=== PATIENT | male | born 1945 | race Caucasian/White ===

== ENCOUNTER 2019-11-13 07:16 | Outpatient (CLI) | payer OTHER, MEDICARE, SELFPAY ==
--- NOTE | 2019-11-13 | ECG_ITS ---
Measurements Intervals [place] Rate: 70 P: 20 MS: 172 QRS: 17 QRSD: 102 T: 52 QT: 387 QTc: 420 Interpretive Statements SINUS RHYTHM EARLY PRECORDIAL R/S TRANSITION BASELINE ARTIFACT- I, III, AVR, AVL, AVF BORDERLINE ECG Electronically Signed On 11-13-2019 8:38:59 BOOM TENDER by Rosalino Velasquez D.O.
--- NOTE | ~2019-11-13 | XR_ITS ---
XR chest 2V DATE: 11/13/2019 07:46 INDICATION: Shortness of breath. Preoperative clearance. TECHNIQUE: PA and lateral views COMPARISON: 08/25/2018 CT chest 05/21/2017 two-view chest FINDINGS: Normal heart size. There is aortic ectasia. There is chronic discoid scarring in the right mid and lower lung zone, chronic blunting of the right costophrenic angle and right pleural thickening, chronic elevation of the right leaf of the diaphrag m, all present on 05/21/2017. There is chronic bibasilar atelectasis and/or scarring, also stable sinc e 05/21/2017. No apparent interval pulmonary infiltrate or consolidation, pleural effusion or pulmonary vascular co ngestion or pneumothorax. IMPRESSION: No significant change since 05/21/2017 Reviewed, dictated and finalized at location B. FIRE SPECIALIST
== END 2019-11-13 07:17 | disposition home or self-care (01) ==
PROVIDERS: PCP Family Medicine; Visit Provider Family Medicine
DX: Z01.810 Encounter for preprocedural cardiovascular examination (principal); R06.02 Shortness of breath; R94.31 Abnormal electrocardiogram [ECG] [EKG]
CPT/HCPCS: 71046; 93005

== ENCOUNTER 2019-11-20 07:50 | Outpatient (CLI) | payer OTHER, MEDICARE, SELFPAY ==
--- NOTE | ~2019-11-20 | US_ITS ---
EXAMINATION: US arterial ankle brachial ind EXAM DATE: 11/20/2019 08:36 INDICATION: Left calf, left leg pain. Hypertension. TECHNIQUE: Segmental pressures and plethysmographic and Doppler waveforms of the brachial and lower e xtremity arteries were obtained. There is no prior study for comparison. FINDINGS: Right and left brachial artery pressures of 141 mm Hg and 141 mm Hg, respectively, are concordant (no rmal difference <= 30 mmHg). RIGHT LEG: The ankle-brachial index (BRAEDEN) is 1.43 (normal >= 0.9-1). The great toe-brachial index (TBI) is 0.96 (normal >= 0.65). The lower extremity ratios, segmental pressure gradients as follows; Dorsalis pedis: 1.43 (202 mmHg). Posterior tibial: Could not obtain ( mmHg). (Normal gradients <= 20-30 mmHg between adjacent levels on the same leg or the same levels on the two legs). Arterial waveforms are biphasic. LEFT LEG: The ankle-brachial index (BRAEDEN) is 1.01 (normal >= 0.9-1). The great toe-brachial index (TBI) is 0.27 (normal >= 0.65). The lower extremity ratios, segmental pressure gradients as follows; Dorsalis pedis: 0.74 (105 mmHg). Posterior tibial: 1.01 (142 mmHg). (Normal gradients <= 20-30 mmHg between adjacent levels on the same leg or the same levels on the two legs). Arterial waveforms are monophasic, diminished. IMPRESSION: 1. Right ankle-brachial index 1.43, normal. 2. Left ankle-brachial index 1.01, normal. 3. Segmental pressures as above, with diminished monophasic LEFT PT, DP Doppler waveforms and decrea sed toe brachial index. Reviewed, dictated and finalized at location B. TURNER IMPRESSION: 1. Right ankle-brachial index 1.43, normal. 2. Left ankle-brachial index 1.01, normal. 3. Segmental pressures as above, with diminished monophasic LEFT PT, DP Dopple r waveforms and decreased toe brachial index.
== END 2019-11-20 07:51 | disposition home or self-care (01) ==
PROVIDERS: PCP Family Medicine; Visit Provider Nurse Practitioner Family
DX: I70.212 Atherosclerosis of native arteries of extremities with intermittent claudication, left leg (principal)
CPT/HCPCS: 93922

== ENCOUNTER 2020-04-07 08:33 | Outpatient (CLI) | payer OTHER, MEDICARE, SELFPAY ==
--- NOTE | 2020-04-07 | ECHO_ITS ---
Patient Info Name: Jake Martin Age: 74 years : 1945 Gender: Male Ht: 69 in Wt: 310 lbs BSA: 2.69 m2 HR: 66 bpm BP: 130 / 76 mmHg Technical Quality: Fair Exam Date: 04/07/2020 8:59 AM Exam Location: [facility] Patient Status: Outpatient Admit Date: 04/07/2020 Staff Ordering Physician: Selvin Sen MD Bar Tender: Kerry Álvarez RDCS Attending Provider: Selvin Sen MD Referring Physician: Francy CAICEDO; Exam Type: CA echo doppler color flow Study Info Indications - copd hypertensive hrt disease Complete two-dimensional, color flow and Doppler transthoracic echocardiogram is performed. Summary 1. Normal left ventricular size with borderline concentric hypertrophy. Good systolic function of all segments with no segmental wall motion abnormalities. Visually estimated ejection fraction is 55-60%. Grade 2 diastolic dysfunction is present. 2. No significant valve disease. 3. Normal pulmonary pressure. 4. Normal sinus rhythm. Left Ventricle Left ventricular chamber dimension is normal. Left ventricular systolic function is normal, estimated at 55-60%. There is mildly increased left ventricular wall thickness. Left ventricular septal wall motion is normal. The left ventricular diastolic function is grade II diastolic dysfunction. Right Ventricle Right ventricular chamber dimension is normal. Right ventricular systolic function is normal. Left Atria Left atrial chamber dimension is normal. Right Atria Right atrial chamber dimension is normal. Aortic Valve The aortic valve is trileaflet. There is mild aortic valve sclerosis. There is no aortic valve stenosis. There is no aortic valve regurgitation. Pulmonic Valve The pulmonic valve is normal. There is no pulmonic valve stenosis. There is no pulmonic regurgitation. Mitral Valve The mitral valve has normal leaflets. There is no mitral valve stenosis. There is trace mitral valve regurgitation. Tricuspid Valve The tricuspid valve leaflets are normal. There is no significant tricuspid valve stenosis. There is trace tricuspid valve regurgitation. No pulmonary hypertension, estimated pulmonary arterial systolic pressure is 27 mmHg. Pericardium/Pleural The pericardium appears normal. There is no pericardial effusion. Inferior Vena Cava Not well visualized inferior vena cava with >50% collapse upon inspiration consistent with Empty right atrial pressure, 10 mmHg. Aorta The aortic root size at the sinus of Valsalva is normal. The prox ascending aorta size is normal. Left Ventricular Outflow Tract Name Value Normal LVOT 2D LVOT Diameter 2.1 cm LVOT Doppler LVOT Peak Gradient 4 mmHg LVOT Mean Gradient 2 mmHg LVOT VTI 21 cm LVOT VTI/AV VTI Ratio 0.8 LVOT Stroke Volume 77 ml LVOT CO 15.0 l/min LVOT CI 5.6 l/min/m2 Pulmonic Valve
--- NOTE | 2020-04-07 | EST_ITS ---
Patient Info Name: Jake Martin Age: 74 years : 1945 Gender: Male Ht: 69 in Wt: 310 lbs BSA: 2.69 m2 Exam Date: 04/07/2020 11:00 AM Exam Location: [facility] Stress Patient Status: Outpatient Admit Date: 04/07/2020 Staff Ordering Physician: Selvin Sen MD Attending Provider: Selvin Sen MD Exercise Technologist: Obie Sanchez, RDCS, RT Nurse: Gerda Velarde, ANP, ACNP-BC Exam Type: CA stress jeffy w NM Study Info A regadenoson stress test was performed. Summary 1. No abnormal ST-T wave changes with lexiscan. 2. Nuclear test results to follow. Protocol: Lexiscan Stress ECG Details Stage: REST Duration (min): 1 min : 14 sec HR (bpm): 67 SBP (mmHg): 125 DBP (mmHg): 65 Stage: REST Duration (min): 41 min : 32 sec HR (bpm): 69 SBP (mmHg): 125 DBP (mmHg): 65 Stage: STAGE 1 Duration (min): 1 min : 0 sec HR (bpm): 74 SBP (mmHg): 122 DBP (mmHg): 89 Stage: RECOVERY Duration (min): 1 min : 0 sec HR (bpm): 79 SBP (mmHg): 122 DBP (mmHg): 89 Stage: RECOVERY Duration (min): 2 min : 0 sec HR (bpm): 78 SBP (mmHg): 122 DBP (mmHg): 89 Stage: RECOVERY Duration (min): 3 min : 0 sec HR (bpm): 82 SBP (mmHg): 120 DBP (mmHg): 79 Stage: RECOVERY Duration (min): 4 min : 0 sec HR (bpm): 80 SBP (mmHg): 120 DBP (mmHg): 79 Stage: RECOVERY Duration (min): 5 min : 0 sec HR (bpm): 78 SBP (mmHg): 119 DBP (mmHg): 76 Stage: RECOVERY Duration (min): 5 min : 12 sec HR (bpm): 78 SBP (mmHg): 119 DBP (mmHg): 76 Rest HR: 69 bpm Peak HR: 84 bpm Rest Sys BP: 125 mmHg Peak Sys BP: 122 mmHg Max Pred HR: 148 bpm % Max Pred HR: 57 % Target HR: 126 bpm Max RPP: 10,248 bpm*mmHg BP Response: Normal blood pressure response Termination Reason: Completed protocol Cardiac Symptoms: Shortness of breath, Lightheaded/pre-syncope Total Time: 1 min : 0 sec Rest Galvez BP: 65 mmHg Peak Galvez BP: 89 mmHg Total Dose: 0.4 mg Resting ECG Normal sinus rhythm - normal ECG. Stress ECG No abnormal ST/T wave changes with exercise. Arrhythmias None. Report Signatures
--- NOTE | ~2020-04-07 | NM_ITS ---
EXAMINATION: NM jeffy stress w perfusion DATE: 04/07/2020 13:19 INDICATION: Epigastric has of heart disease TECHNIQUE: Rest images were obtained following intravenous administration of 9.4 mCi Tc99m tetrofosmi n (Myoview). The patient was infused intravenously with Lexiscan (Regadenoson). Then, 29.4 mCi Tc99m tetrofosmin (Myoview) was administered intravenously, and stress images were obtained. Data was recon structed into short axis and horizontal and vertical long axis SPECT images. Gated SPECT images were also obtained. COMPARISON: None. FINDINGS: There is no definite reversible or fixed perfusion abnormality to suggest ischemia or infar ction. There is normal left ventricular chamber size, wall motion and ejection fraction. Left ventric ular ejection fraction measures 64%. IMPRESSION: 1. Normal myocardial perfusion at rest and during stress. 2. Left ventricular ejection fraction measuring 64%. Reviewed, dictated and finalized at location A.
--- NOTE | ~2020-04-07 | XR_ITS ---
XR chest 2V 04/07/2020 09:57 Indication: Shortness of breath. Procedure: PA and lateral views of the chest Comparison: Comparison to multiple prior studies sequentially, with oldest reviewed study dated 07/26. Findings: There is chronic scarring of the right mid and lower lung. Chronic right pleural effusion/p leural thickening without change. Stable cardiomediastinal silhouette. No acute focal pneumonia, valentin a or effusion. Calcified granulomas in the right lung. No acute osseous abnormality. No pneumothorax. Impression: 1: No acute cardiopulmonary disease. Stable scarring right mid and lower lung. Reviewed, dictated and finalized at location B. Impression: 1: No acute cardiopulmonary disease. Stable scarring right mid and lower lung.
== END 2020-04-07 08:34 | disposition home or self-care (01) ==
PROVIDERS: PCP Family Medicine; Visit Provider Family Medicine
DX: R06.02 Shortness of breath (principal); I10 Essential (primary) hypertension; J44.9 Chronic obstructive pulmonary disease, unspecified
CPT/HCPCS: 71046; 78452; 93017; 93306; A9502; J2785

== ENCOUNTER 2020-04-08 13:06 | Outpatient (CLI) | payer OTHER, MEDICARE, SELFPAY ==
--- NOTE | 2020-04-12 13:35 | WPDPFTINT ---
PFT Interpretation PFT Interpretation: DOS: 04/08/2020 REQUESTING: Chhaya Barba NP REASON FOR TESTING: Dyspnea on exertion PULMONARY FUNCTION TESTS Results are reliable and reproducible. Spirometry: FEV1 52% moderately decreased, 1.45 L. FVC is 50%, moderately decreased. The FEV1/FVC ratio is normal. [id number] is decreased at 32%. There is no statistically significant increase after bronchodilator. Lung volumes: TLC decreased at 62% consistent with mild restriction. RV/TLC is increased consistent with air trapping. Airway resistance 185%. ERV is extremely low, and may reflect elevated BMI. Diffusion: DLCO moderately decreased 46%. Flow volume loop: Scooping of the expiratory limb consistent with obstruction. IMPRESSION: Mixed obstruction and restriction. The obstruction is moderate, restriction is mild, moderate diffusion defect and no response to bronchodilator. The restriction may be due to the elevated body mass index. The lack of response to bronchodilators should not preclude use if clinically indicated. Evelyn Barger MD
== END 2020-04-08 13:07 | disposition home or self-care (01) ==
PROVIDERS: PCP Family Medicine; Visit Provider Nurse Practitioner Family
DX: I13.0 Hypertensive heart and chronic kidney disease with heart failure and stage 1 through stage 4 chronic kidney disease, or unspecified chronic kidney disease (principal); R94.2 Abnormal results of pulmonary function studies
CPT/HCPCS: 94060; 94726; 94729

== ENCOUNTER 2022-06-02 07:02 | Outpatient (CLI) | payer MEDICARE, SELFPAY ==
--- NOTE | ~2022-06-02 | CT_ITS ---
EXAMINATION: CT diagnostic chest wo con DATE: 06/02/2022 07:31 INDICATION: Obesity hypoventilation syndrome, shortness of breath TECHNIQUE: Computed tomography (CT) of the chest was performed without intravenous contrast. The dose -length product (DLP) was 1082.84 mGy-cm. Automated exposure control and iterative reconstruction tiny hnique were employed. COMPARISON: 08/25/2018 FINDINGS: There is chronic elevation of the right hemidiaphragm with areas of chronic atelectasis in the right middle and lower lobes. There is a stable 6 mm nodule in the medial aspect of the right upp er lobe, considered benign given the lack of interval change. No pleural effusion or pneumothorax. Th ere are healed right-sided rib fractures. Calcified pulmonary nodules and calcified bilateral hilar l ymph nodes are consistent with old granulomatous disease. There is also mild atelectasis of the ling kamla and left lower lobe. No pathologically enlarged thoracic lymph nodes are identified. The heart si ze is normal. There are bridging osteophytes at multiple levels in the spine, consistent with diffuse idiopathic skeletal hyperostosis (DISH). IMPRESSION: 1. Chronic elevation of the right hemidiaphragm with unchanged chronic atelectasis of the right middl e and lower lobes. Reviewed, dictated and finalized at location B. IMPRESSION: 1. Chronic elevation of the right hemidiaphragm with unchanged chronic atelecta sis of the right middle and lower lobes.
[2022-06-04 19:26] LABS: PCP NEGATIVE ng/mL (<25)
[2022-06-15 15:42] LABS: Amphetamines NEGATIVE; Barbiturates NEGATIVE; Marijuana Metabolites NEGATIVE
[2022-06-15 15:43] LABS: Benzodiazepines NEGATIVE; Cocaine Metabolites NEGATIVE
== END 2022-06-02 07:03 | disposition home or self-care (01) ==
PROVIDERS: PCP Family Medicine; Referring Provider Physician Assistant; Visit Provider Physician Assistant
DX: J96.10 Chronic respiratory failure, unspecified whether with hypoxia or hypercapnia (principal); J44.9 Chronic obstructive pulmonary disease, unspecified; E66.2 Morbid (severe) obesity with alveolar hypoventilation; G89.4 Chronic pain syndrome
CPT/HCPCS: 71250; 80307

== ENCOUNTER 2022-09-29 07:51 | Outpatient (CLI) | payer MEDICARE, SELFPAY ==
[2022-09-29] VITALS (9 sets, daily range): PULSE 64–73; O2SAT 84–90
[2022-09-29 08:42] LABS: Base Excess ABG 4.6 mEq/l (+/-2.0); Carboxyhemoglobin 0.5 % THb (0-2.0); Fractional Inspired Oxygen 36 %; HCO3 ABG 30.9 mEq/l (22.0-26.0); Methemoglobin ABG 0.2 %THb (0-1.5); Oxygen Content ABG 18.8 %vol (16.0-22.0); Oxygen Saturation ABG 95.8 % (95.0-100.0); Oxyhemoglobin 94.8 % THb (90.0-100.0); PO2 ABG 82.2 mmHg (80.0-100.0); PO2 FiO2 Ratio Arterial Blood 2.28 %; Reduced Hemoglobin 4.5 %THb (0-5.0); Total Hemoglobin 14.1 g/dL (12.0-18.0); pH ABG 7.384 (7.350-7.450)
[2022-09-29 08:44] LABS: Device NASAL CANNULA; Modified Allen's Test Pass; Site Drawn LEFT RADIAL
--- NOTE | 2022-09-29 09:27 | HOMEO2EVAL ---
Evaluation was performed at [facility] Home Oxygen Evaluation RC: Home Oxygen (O2) Evaluation Start: 09/29/22 09:23 Freq: Status: Active Protocol: RPE Activity Type Activity Date Activity User E-sign Co-sign Detail Recorded Client Recorded Date Recorded By Document 09/29/22 08:00 SILVANA [email or web address] 09/29/22 09:27 SILVANA Document 09/29/22 08:05 SILVANA [email or web address] 09/29/22 09:27 SILVANA Document 09/29/22 08:10 SILVANA [email or web address] 09/29/22 09:27 SILVANA Document 09/29/22 08:15 SILVANA [email or web address] 09/29/22 09:27 SILVANA Document 09/29/22 08:20 SILVANA [email or web address] 09/29/22 09:27 SILVANA Document 09/29/22 08:25 SILVANA [email or web address] 09/29/22 09:27 SILVANA Document 09/29/22 08:30 SILVANA [email or web address] 09/29/22 09:27 SILVANA Document 09/29/22 08:35 SILVANA [email or web address] 09/29/22 09:27 SILVANA Document 09/29/22 08:45 SILVANA [email or web address] 09/29/22 09:27 SILVANA 09/29/22 09/29/22 09/29/22 08:00 08:05 08:10 Home O2 Evaluation [Oxygen] -Test Phase Resting Resting Resting -Oxygen Delivery Room Air Nasal Cannula Nasal Cannula -Oxygen Flow Rate (L/min) 1 2 [Pulse Oximetry] -Pulse Oximetry (90-100 %) 84 L 85 L 86 L [Pulse Rate] -Pulse Rate (60-100 beats/min) 68 65 66 [Evaluation] -Activity Tolerance [Charges] -Treatment Charges O2 Evaluation - Outpatient 09/29/22 09/29/22 09/29/22 08:15 08:20 08:25 Home O2 Evaluation [Oxygen] -Test Phase Resting Resting Exercise -Oxygen Delivery Nasal Cannula Nasal Cannula Nasal Cannula -Oxygen Flow Rate (L/min) 3 4 4 [Pulse Oximetry] -Pulse Oximetry (90-100 %) 87 L 90 86 L [Pulse Rate] -Pulse Rate (60-100 beats/min) 64 65 70 [Evaluation] -Activity Tolerance [Charges] -Treatment Charges 09/29/22 09/29/22 09/29/22 08:30 08:35 08:45 Home O2 Evaluation [Oxygen] -Test Phase Exercise Exercise Resting -Oxygen Delivery Nasal Cannula Nasal Cannula Nasal Cannula -Oxygen Flow Rate (L/min) 5 6 4 [Pulse Oximetry] -Pulse Oximetry (90-100 %) 88 L 90 90 [Pulse Rate] -Pulse Rate (60-100 beats/min) 72 73 66 [Evaluation] -Activity Tolerance Poor [Charges] -Treatment Charges
--- NOTE | 2022-09-29 13:25 | P.PCNPFT_ITS ---
PFT Procedure Performed PFT Procedure Performed Spirometry with Pre/Post Bronchodilator Plethysmography (Lung Vol) Diffusing Cap (DLCO) Flow Vol Loop PFT Interpretation Lung volumes were measured with the body plethysmography method. The [id number] diminished lung volumes are indicative of restrictive re spiratory disease. Spirometry showed diminished expiratory flow rates and a normal FEV1 to FVC ratio 71%, also consistent with restrictive respiratory disease. Following administration of a bronchodilator there was no significant change in the expiratory flow rates. Lung diffusion capacity is severely reduced at 36% predicted. In comparison to previous study in 2020, the post bronchodilator FVC and FEV1 are essentially unchanged whereas lung diffusion capacity is now lower by approximately 20%. Impression: Moderately severe restrictive respiratory disease. Severely reduced lung diffusion capacity.
[2023-02-02] VITALS (7 sets, daily range): PULSE 90; O2SAT 85–90
--- NOTE | 2023-02-02 14:24 | HOMEO2EVAL ---
Evaluation was performed at [facility] Home Oxygen Evaluation RC: Home Oxygen (O2) Evaluation Start: 09/29/22 09:23 Freq: Status: Discharge Protocol: RPE Activity Type Activity Date Activity User E-sign Co-sign Detail Recorded Client Recorded Date Recorded By Document 02/02/23 14:00 SILVANA [email or web address] 02/02/23 14:24 SILVANA Document 02/02/23 14:05 SILVANA [email or web address] 02/02/23 14:24 SILVANA Document 02/02/23 14:06 SILVANA [email or web address] 02/02/23 14:24 SILVANA Document 02/02/23 14:07 SILVANA [email or web address] 02/02/23 14:24 SILVANA Document 02/02/23 14:10 SILVANA [email or web address] 02/02/23 14:24 SILVANA Document 02/02/23 14:15 SILVANA [email or web address] 02/02/23 14:24 SILVANA Document 02/02/23 14:20 SILVANA [email or web address] 02/02/23 14:24 SILVANA 02/02/23 02/02/23 02/02/23 14:00 14:05 14:06 Home O2 Evaluation [Oxygen] -Test Phase Resting Resting Resting -Oxygen Delivery Room Air Nasal Cannula Nasal Cannula -Oxygen Flow Rate (L/min) 2 3 [Pulse Oximetry] -Pulse Oximetry (90-100 %) 85 L 86 L 87 L [Pulse Rate] -Pulse Rate (60-100 beats/min) 90 [Exercise] -Ambulation Distance (feet) -Ambulation Distance (meters) [Comments] -Home Oxygen Evaluation Comments [Charges] -Treatment Charges O2 Evaluation - Outpatient 02/02/23 02/02/23 02/02/23 14:07 14:10 14:15 Home O2 Evaluation [Oxygen] -Test Phase Resting Exercise Exercise -Oxygen Delivery Nasal Cannula Nasal Cannula Nasal Cannula -Oxygen Flow Rate (L/min) 4 4 5 [Pulse Oximetry] -Pulse Oximetry (90-100 %) 90 87 L 89 L [Pulse Rate] -Pulse Rate (60-100 beats/min) [Exercise] -Ambulation Distance (feet) 75 -Ambulation Distance (meters) 22.85 [Comments] -Home Oxygen Evaluation Comments PT REQUIRES 4 L AT REST AND 5 L WITH ACTIVITY [Charges] -Treatment Charges 02/02/23 14:20 Home O2 Evaluation [Oxygen] -Test Phase Resting -Oxygen Delivery Nasal Cannula -Oxygen Flow Rate (L/min) 4 [Pulse Oximetry] -Pulse Oximetry (90-100 %) 90 [Pulse Rate] -Pulse Rate (60-100 beats/min) [Exercise] -Ambulation Distance (feet) -Ambulation Distance (meters) [Comments] -Home Oxygen Evaluation Comments [Charges] -Treatment Charges
== END 2022-09-29 07:52 | disposition home or self-care (01) ==
LOC: ANHPFT 07:52
PROVIDERS: PCP Family Medicine; Visit Provider Internal Medicine Critical Care Medicine
DX: J44.9 Chronic obstructive pulmonary disease, unspecified (principal); U09.9 Post COVID-19 condition, unspecified; R94.2 Abnormal results of pulmonary function studies
CPT/HCPCS: 36600; 82375; 82805; 83050; 94060; 94618; 94726; 94729

== ENCOUNTER 2023-02-02 12:08 | Outpatient (CLI) | payer MEDICARE, SELFPAY ==
--- NOTE | 2023-02-02 17:13 | WPDPFTINT ---
PFT Procedure Performed PFT Procedure Performed Spirometry with Pre/Post Bronchodilator Plethysmography (Lung Vol) Diffusing Cap (DLCO) Flow Vol Loop PFT Interpretation This is a pulmonary function test with pre and post-bronchodilator spirometry, plethysmography and diffusing capacity. The test was performed and results interpreted in accordance with the 2019 and 2005 ATS/ERS Task Force guidelines respectively using the Global Lung Function Initiative-2012 reference equations. Patient demonstrated good effort and cooperation. Reproducibility criteria were met. The quality of the pre bronchodilator spirometry maneuver was Grade A and post bronchodilator spirometry maneuver was Grade A. Findings: Spirometry: there is decreased maximal expiratory airflow at low lung volumes with concave expiratory flow tracing. The contour the inspiratory flow tracing is normal. The pre bronchodilator FVC is 2.15 L, 67% predicted. The pre bronchodilator FEV1 is 1.39 L, 58% predicted. The pre bronchodilator FEV1: FVC ratio 65%. The post bronchodilator FVC is 2.07 L, representing a 4% decrease. The post bronchodilator FEV1 is 1.51 L, representing an 8% increase. The post bronchodilator FEV1: FVC ratio 73%. Plethysmography: The total lung capacity is 3.63 L, 63% predicted. The functional residual capacity is 2.28 L, 68% predicted. The residual volume is 1.48 L, 58% predicted. Diffusing capacity: The diffusing capacity unadjusted for hemoglobin and carboxyhemoglobin is 8.6, 39% predicted. Diffusing capacity adjusted for alveolar volume is 3.16, 79% predicted. In comparison to previous pulmonary function test on 09/29/2022 the post bronchodilator FVC is unchanged from 1.96 L to 2.07 L. The post bronchodilator FEV1 is unchanged from 1.40 L to 1.51 L. The total lung capacity is unchanged from 3.60 L to 3.63 L. The functional residual capacity is increased from 1.49 L to 2.28 L. The residual volume is unchanged from 1.47 L to 1.48 L. The diffusing capacity unadjusted for hemoglobin and carboxyhemoglobin is unchanged from 8.8 to 8.6. The diffusing capacity adjusted for alveolar volume is unchanged from 3.60 to 3.16. Impression: There is a combined obstructive and restrictive ventilatory abnormality. There are no guidelines to assign the severity of obstruction and restriction with a combined abnormality. In my opinion, given the mildly concave expiratory flow tracing and low FEV1:FVC ratio and moderate restrictive abnormality, I would state there is a mild obstructive abnormality and a moderate restrictive abnormality resulting in a moderately severe decrease in the FEV1. There is no significant improvement after inhaling a single dose of albuterol. The diffusing capacity unadjusted for hemoglobin and carboxyhemoglobin is severely decreased and normalizes when adjusted for alveolar volume. In comparison to previous pulmonary function testing on 09/29/2022 there has been a greater than anticipated time dependent increase in the functional residual capacity with no significant change in the FVC, FEV1, total lung capacity, residual volume or diffusing capacity. Clinical correlation is recommended.
== END 2023-02-02 12:09 | disposition home or self-care (01) ==
LOC: ANHPFT 12:10
PROVIDERS: PCP Family Medicine; Visit Provider Internal Medicine Critical Care Medicine
DX: J44.9 Chronic obstructive pulmonary disease, unspecified (principal)
CPT/HCPCS: 94060; 94618; 94726; 94729

== ENCOUNTER 2023-03-12 11:52 | Outpatient (CLI) | payer MEDICARE, SELFPAY ==
--- NOTE | ~2023-03-12 | XR_ITS ---
XR abdomen/kub 1V 03/12/2023 12:22 INDICATION: Abdominal distention TECHNIQUE: KUB COMPARISON: 07/19/2018 FINDINGS: Bowel gas pattern is normal. There is no evidence of free air, mass, organomegaly, ascites or obstruction. No abnormal calculi are seen. The bones appear intact. Bibasilar airspace disease is present. Small right pleural effusion. There are pelvic phleboliths. IMPRESSION: 1: No acute abdominal abnormality identified. 2: Bibasilar airspace disease, suspicious for pneumonia versus edema. 3: Small right pleural effusion. Reviewed, dictated and finalized at location []
== END 2023-03-12 11:53 | disposition home or self-care (01) ==
PROVIDERS: PCP Family Medicine; Visit Provider Family Medicine
DX: R14.0 Abdominal distension (gaseous) (principal); J90 Pleural effusion, not elsewhere classified; R91.8 Other nonspecific abnormal finding of lung field
CPT/HCPCS: 74018

== ENCOUNTER 2023-04-17 18:40 | Emergency (ER) | payer MEDICARE, SELFPAY ==
[2023-04-17] VITALS (26 sets, daily range): BP systolic 110–144; BP diastolic 55–76; PULSE 62–98; RESP 14–26; TEMP 36.7–36.8; O2SAT 90–95
--- NOTE | ~2023-04-17 | CT_ITS ---
EXAMINATION: CT cervical spine wo con DATE: 04/17/2023 21:35 INDICATION: Status post fall. Neck pain. TECHNIQUE: Computed tomography (CT) of the cervical spine was performed without intravenous contrast. The dose-length product was 585 mGy-cm. Automated exposure control and iterative reconstruction tech nique were employed. 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 Study extremely limited by rotation and motion. There is carotid atherosclerosis. There is scoli osis. Odontoid process is normal. No significant paraspinal soft tissue abnormality. There is disc na rrowing and endplate degenerative change at multiple levels. No evidence for perched facet. Spinous p rocesses are unremarkable. IMPRESSION: 1. Mild superior endplate compression fractures of C6, C7 and T1, most likely chronic. 2: Mild-moderate cervical spondylosis. Reviewed, dictated and finalized at location A. IMPRESSION: 1. Mild superior endplate compression fractures of C6, C7 and T1, most likely c hronic. 2: Mild-moderate cervical spondylosis.
--- NOTE | ~2023-04-17 | CT_ITS ---
EXAMINATION: CT brain wo con DATE: 04/17/2023 21:35 INDICATION: Status post fall. Head injury. Patient on anticoagulants. TECHNIQUE: Computed tomography (CT) of the head was performed without intravenous contrast. The dose- length product was 1664.67 mGy-cm. Automated exposure control and iterative reconstruction technique were employed. COMPARISON: None FINDINGS: Generalized atrophy. Study limited by motion artifact. There is intracranial atherosclerosi s. There are scattered mild periventricular and subcortical white matter changes, most likely related to small vessel ischemic disease (microangiopathy). There is near complete opacification of the left maxillary sinus. There is bilateral mastoid effusions. No depressed skull fractures. IMPRESSION: 1. No acute intracranial abnormality. 2: Significantly limited study due to motion artifact. Reviewed, dictated and finalized at location A.
--- NOTE | ~2023-04-17 | CT_ITS ---
EXAMINATION: CT chst ab pel rj lum wo DATE: 04/17/2023 21:44 INDICATION: Status post fall. Chest, abdomen and pelvis pain. TECHNIQUE: Computed tomography (CT) of the chest, abdomen, pelvis, thoracic spine and lumbar spine wa s performed without intravenous contrast. The dose-length product was 2116.25 mGy-cm. Automated expos ure control and iterative reconstruction technique were employed. COMPARISON: CT chest dated 09/13/2007 FINDINGS: CHEST: Study is limited by rotation. No significant pleural or pericardial effusion. Heart size is no rmal. No thoracic lymphadenopathy. There is patchy consolidation bilaterally involving the lower lobe s, the lingula and right middle lobe which may represent atelectasis and/or pneumonia. Mild emphysema . No endobronchial lesions. There are multiple healed bilateral rib fractures. There are acute right fourth, fifth and sixth rib fractures. Abdomen/pelvis: There are gallstones. The liver, spleen, pancreas, adrenal glands are unremarkable. T here are nonobstructing bilateral renal stones. There is right renal atrophy. There is an intermediat e density 1.4 cm exophytic right renal mass. Nonobstructive bowel pattern. No evidence for aortic ane urysm. No lymphadenopathy. Thoracic spine: There is mild dextroscoliosis. There is loss of vertebral body height at C6, C7, T1, T2, T3, T5, T6, T8, T9 and T12, most likely chronic. There are prominent bridging osteophytes at mult iple thoracic spine levels ventrally. Lumbar spine: Vertebral body heights are maintained. There is no evidence for acute fracture or traum atic malalignment. There is mild superior endplate compression deformity of T12 which appears chronic . There is no evidence for spondylolisthesis. Mild levocurvature of the lumbar spine. There is modera te facet hypertrophy at L5-S1. IMPRESSION: 1. Patchy bilateral airspace consolidation which may represent pneumonia and/or atelectasis. 2: Acute right fourth, fifth and sixth rib fractures. 3: Intermediate density exophytic 1.4 cm right renal mass which may represent a complicated cyst, alt narinder renal cell carcinoma not excluded. Consider correlation with CT or MRI without and with contras t on a nonemergent basis. 4: Cholelithiasis. 5: Nonobstructing bilateral nephrolithiasis. 6: Mild multilevel compression deformities of the lower cervical and thoracic spine, likely chronic. Reviewed, dictated and finalized at location A. IMPRESSION: 1. Patchy bilateral airspace consolidation which may represent pneumonia and/or atelectasis. 2: Acute right fourth, fifth and sixth rib fractures. 3: Intermediate density exophytic 1.4 cm right renal mass which may represent a complicated cyst, although renal cell carcinoma not excluded. Consider correla tion with CT or MRI without and with contrast on a nonemergent basis. 4: Cholelithiasis. 5: Nonobstructing bilateral nephrolithiasis. 6: Mild multilevel compression deformities of the lower cervical and thoracic s pine, likely chronic.
--- NOTE | 2023-04-17 19:00 | PC.NURSE ---
Assumed care of pt. at this time. Report from TIANNA Bustos
--- NOTE | 2023-04-17 19:09 | ECG_ITS ---
Measurements Intervals [place] Rate: 64 P: 24 MS: 176 QRS: 9 QRSD: 141 T: 31 QT: 401 QTc: 414 Interpretive Statements SINUS RHYTHM RIGHT BUNDLE BRANCH BLOCK BASELINE ARTIFACT- I, II, III ABNORMAL ECG COMPARED TO ECG 11/13/2019 08:03:24 RIGHT BUNDLE-BRANCH BLOCK NOW PRESENT Electronically Signed On 04-17-2023 20:08:12 CDT by Rosalino Velasquez D.O.
--- NOTE | 2023-04-17 19:23 | ED.SOB ---
HPI - SOB/Dyspnea General Chief Complaint: Shortness of Breath/Dyspnea Stated Complaint: fall, rib pain, can't breathe Time Seen by Provider: 04/17/23 19:09 Source: patient Mode of arrival: wheelchair Limitations: no limitations History of Present Illness HPI Narrative: This is a 77-year-old male that presents to the emergency department for right-sided rib pain. Present over the last 4 days. Reports he fell out of his wheelchair onto his right side. He was evaluated at another ER with a chest/rib film. This did not show any acute fractures. He was discharged. Reports he has had continued right-sided rib pain and worsening shortness of breath. He does believe he hit his head. He did not lose consciousness. Patient reports he takes apixaban daily. Denies fever, visual changes, vomiting, abdominal pain, focal numbness or weakness. Related Data Allergies Allergy/AdvReac Type Severity Reaction Status Date / Time amiodarone Allergy Unknown Unknown Verified 03/09/23 07:30 naproxen Allergy Unknown Unknown Verified 03/09/23 07:30 Contrast Media Allergy Unknown Unknown Uncoded 03/09/23 07:30 shell fish Allergy Unknown urticaria Uncoded 03/09/23 07:30 Review of Systems Review of Systems: CONSTITUTIONAL: Denies fever EYES: Denies visual changes CARDIOVASCULAR: Reports chest/rib pain. Denies edema. RESPIRATORY: Reports dyspnea. Denies cough GASTROINTESTINAL: Denies abdominal pain, nausea, vomiting MUSCULOSKELETAL: Reports back pain, joint pain, and myalgia. NEUROLOGIC: Denies headache, numbness, or weakness. All systems reviewed & are unremarkable except as noted in HPI and below PMFSH Past Medical History Medical History Body mass index (BMI) of 40.0-44.9 in adult (01/21/19) BPH (benign prostatic hyperplasia) Cataract (lens) fragments in eye following cataract surgery, unspecified eye COPD (chronic obstructive pulmonary disease) Counseling on health promotion and disease prevention Diabetes Elevated antinuclear antibody (NATALIE) level Generalized osteoarthritis of multiple sites Hx of nephrolithotomy with removal of calculi Inflammatory arthropathy Kidney stone Obesity hypoventilation syndrome DONITA and COPD overlap syndrome Positive NATALIE (antinuclear antibody) (02/2018) Restrictive lung disease secondary to obesity Vitiligo Surgical History Surgical History History of back surgery History of cardiac radiofrequency ablation (RFA) Family History Family History Father Patient's father is Sibling Patient's sister is Mother Family history of Alzheimer's disease Social History Social History (Updated 03/09/23 @ 07:31 by Shahida Garrett) Social History: Smoking status: Never smoker (Never tobacco smoker, used to smoke marijuana) Second hand tobacco smoke exposure: No Alcohol intake: never Substance use: never Substance use type: does not use Lack of Transportation: No Lack of Food: Never True Current Housing: I Have Housing Concerned About Future Housing: No Difficulty Paying Gas/Electric Bills: No Difficulty Paying for Meds: No Currently Unemployed: YES Education: Decline to Answer Difficulty w/ Childcare or Family Care: No Living arrangements: with family Occupation/Education: retired Gender identity (if verbalized by the patient): Male Sexual Orientation (if Verbalized by the Patient): Straight or Heterosexual Exam Narrative: GENERAL: Chronically ill-appearing, well-nourished, and in no acute distress. HEAD: Normocephalic, atraumatic. EYES: PERRLA and EOMI. ENT: Nares clear, no rhinorrhea or epistaxis. Mucous membranes moist. Oropharynx without tonsillar hypertrophy exudate or other lesions. Bilateral TMs pearly miles non-bulging NECK: Supple. No adenopathy
[2023-04-17] MEDS: ONDANSETRON INJ 4 MG/2 ML VIAL IV PUSH (19:31)
[2023-04-17] MEDS: MORPHINE SULFATE (*CRX) 4 MG/ML INJ IV PUSH (19:31)
[2023-04-17 19:35] LABS: Basophils Percent Auto 0.5 % (0.2-1.2); Eosinophils Absolute Auto 0.2 K/mm3 (0-0.3); Eosinophils Percent Auto 1.8 % (0-4.4); Hematocrit 42.3 % (42.0-52.0); Hemoglobin 12.7 g/dL (14.0-18.0); Immature Granulocyte Absolute 0.04 K/mm3 (0.00-0.031); Immature Granulocyte Percent A 0.5 % (0-0.5); Lymphocytes Absolute Auto 1.33 K/mm3 (0.9-3.2); Lymphocytes Percent Auto 15.2 % (18.3-44.2); Mean Corpuscular Hemoglobin 29.2 pg (26-34); Mean Corpuscular Volume 97.2 fl (80-100); Mean Platelet Volume 9.7 fl (7.4-10.4); Monocytes Absolute Auto 0.9 K/mm3 (0.1-0.6); Neutrophils Absolute Auto 6.3 K/mm3 (1.3-6.7); Platelet Count Result 227 k/mm3 (150-375); Red Blood Count 4.35 M/mm3 (4.6-6.20); Red Cell Distribution Width 14.9 % (11.5-14.5); White Blood Count 8.8 K/mm3 (4.5-10.0)
[2023-04-17 19:52] LABS: Anion Gap 8 mmol/L (8-16); Blood Urea Nitrogen 22 mg/dL (9-20); Calcium 9.2 mg/dL (8.4-10.2); Carbon Dioxide 32 mmol/L (22-30); Chloride 99 mmol/L (98-107); Estimated CRCL calculation 67 ml/min; Estimated Glomerular Filt Rate 59; Glucose 173 mg/dL (65-110); Potassium 4.4 mmol/L (3.4-5.0); Sodium 139 mmol/L (137-145)
[2023-04-17] MEDS: oxyCODONE/ACETAMINOPHEN (*CRX) 5-325 MG TABLET 1 TABLET PO (23:08)
== END 2023-04-17 23:35 | disposition home or self-care (01) ==
PROVIDERS: Emergency Provider Physician Assistant; PCP Family Medicine
DX: S22.41XA Multiple fractures of ribs, right side, initial encounter for closed fracture (principal); J18.9 Pneumonia, unspecified organism; N28.89 Other specified disorders of kidney and ureter; J44.9 Chronic obstructive pulmonary disease, unspecified; E11.9 Type 2 diabetes mellitus without complications; M19.90 Unspecified osteoarthritis, unspecified site; N40.0 Benign prostatic hyperplasia without lower urinary tract symptoms; E66.2 Morbid (severe) obesity with alveolar hypoventilation; Z68.42 Body mass index [BMI] 45.0-49.9, adult; Z87.442 Personal history of urinary calculi; Z79.01 Long term (current) use of anticoagulants; I45.10 Unspecified right bundle-branch block; M47.812 Spondylosis without myelopathy or radiculopathy, cervical region; R93.7 Abnormal findings on diagnostic imaging of other parts of musculoskeletal system; N20.0 Calculus of kidney; K80.20 Calculus of gallbladder without cholecystitis without obstruction; W05.0XXA Fall from non-moving wheelchair, initial encounter
CPT/HCPCS: 36415; 70450; 71250; 72125; 72128; 72131; 74176; 80048; 85025; 93005; 96374; 96375; 99284; A9270; J2270; J2405

== ENCOUNTER 2023-04-18 10:07 | Inpatient (IN) | payer MEDICARE, SELFPAY ==
[2023-04-18] VITALS (19 sets, daily range): BP systolic 109–142; BP diastolic 40–77; PULSE 65–93; RESP 17–23; TEMP 36.7–37.3; O2SAT 90–96; BMI 46.3
--- NOTE | ~2023-04-18 | XR_ITS ---
Portable chest x-ray Comparison: 04/07/2020 Clinical History: Respiratory failure Findings: There are small bilateral pleural effusions. There is linear right basilar scarring. There is mild diffuse haziness in the lungs, suggestive of mild pulmonary edema. Cardiomediastinal silhou ette is stable. Bones and soft tissues are unremarkable. Impression: Probable mild pulmonary edema with small bilateral pleural effusions. Chronic linear scarring right lung base. Reviewed, dictated and finalized at location . Impression: Probable mild pulmonary edema with small bilateral pleural effusions. Chronic linear scarring right lung base.
--- NOTE | ~2023-04-18 | CT_ITS ---
EXAMINATION: CT diagnostic chest wo con DATE: 04/18/2023 12:20 INDICATION: Shortness of breath. Rib fractures. TECHNIQUE: Computed tomography (CT) of the chest was performed without intravenous contrast. Automate d exposure control and iterative reconstruction technique were employed. Exam dose: 1178.36 mGy-cm t otal exam DLP. COMPARISON: 06/02/2022 CTA chest FINDINGS: There is prominent infiltrate and/or atelectasis at the base of the middle lobe and bilater al lower lobe infiltrate and/or atelectasis. Cardiomegaly. Coronary artery calcifications. Mild thoracic aortic aneurysm, the ascending aorta mariann uring up to 4.2 cm diameter, the aortic arch 3.4 cm diameter. Bilateral calcified hilar lymph nodes consistent with old granulomatous disease. No hilar or mediasti nal mass lesion or lymphadenopathy is noted. Probable cholelithiasis. No gallbladder wall thickening or pericholecystic fluid or fat stranding is noted. No bile duct dilatation or pancreatic duct dilatation is noted. There are multiple old bilateral healed rib fractures. Recent minimally displaced anterolateral right sixth rib fracture or recent nondisplaced anterolatera l right seventh rib fracture and recent angulated nondisplaced right eighth rib fracture. Suggestion of subtle nondisplaced left fourth through eighth recent rib fractures. Degenerative disc disease of the lower cervical spine. Diffuse idiopathic skeletal hyperostosis of the thoracic spine. Multiple mild chronic thoracic compre ssion fracture deformities related IMPRESSION: Right and probable left recent rib fractures; no pneumothorax. Multiple old right rib fr actures Bilateral lower lobe and middle lobe infiltrate/atelectasis Cardiomegaly, coronary artery atherosclerosis Mild thoracic aortic aneurysm Probable cholelithiasis Reviewed, dictated and finalized at Location A. Reviewed, dictated and finalized at location B. IMPRESSION: Right and probable left recent rib fractures; no pneumothorax. Mul tiple old right rib fractures Bilateral lower lobe and middle lobe infiltrate/atelectasis Cardiomegaly, coronary artery atherosclerosis Mild thoracic aortic aneurysm Probable cholelithiasis
[2023-04-18] MEDS: MORPHINE SULFATE (*CRX) 4 MG/ML INJ IV PUSH (12:13)
[2023-04-18 13:07] LABS: Basophils Percent Auto 0.4 % (0.2-1.2); Eosinophils Percent Auto 0.3 % (0-4.4); Hematocrit 41.3 % (42.0-52.0); Hemoglobin 12.4 g/dL (14.0-18.0); Immature Granulocyte Absolute 0.05 K/mm3 (0.00-0.031); Immature Granulocyte Percent A 0.6 % (0-0.5); Lymphocytes Absolute Auto 1.34 K/mm3 (0.9-3.2); Mean Corpuscular Hemoglobin 29.5 pg (26-34); Mean Corpuscular Volume 98.3 fl (80-100); Mean Platelet Volume 9.6 fl (7.4-10.4); Neutrophils Absolute Auto 6.5 K/mm3 (1.3-6.7); Neutrophils Percent Auto 72.7 % (45.5-73.1); Platelet Count Result 213 k/mm3 (150-375); Red Cell Distribution Width 14.8 % (11.5-14.5); White Blood Count 8.9 K/mm3 (4.5-10.0)
[2023-04-18 13:19] LABS: Alanine Aminotransferase 22 U/L (6-50); Alkaline Phosphatase 99 U/L (38-126); Anion Gap 5 mmol/L (8-16); Aspartate Amino Transferase 23 U/L (17-59); Bilirubin,Total 0.5 mg/dL (0.2-1.3); Blood Urea Nitrogen 25 mg/dL (9-20); Calcium 9.2 mg/dL (8.4-10.2); Carbon Dioxide 36 mmol/L (22-30); Chloride 99 mmol/L (98-107); Estimated CRCL calculation 67 ml/min; Estimated Glomerular Filt Rate 59; Glucose 148 mg/dL (65-110); Sodium 140 mmol/L (137-145)
[2023-04-18] MEDS: cefTRIAXone 2 GM/NS 100 ML 2 GM/100 ML BAG IVPB (14:30)
--- NOTE | 2023-04-18 14:33 | ED.GENADULT ---
HPI - General Adult General Chief complaint: Unspecified Stated complaint: R side rib pain Time Seen by Provider: 04/18/23 11:26 History of Present Illness HPI narrative: Jake Martin is a 77 y/o male with PMHx, DM, Afib, HTN, HLD wears 6 L of 02 at baseline, who reports he was evaluated here last night and diagnosed with several rib fractures and pneumonia and offered to be admitted and chose to go home. He presents back today with reports of increased shortness of breath/ not able to care for himself and wanting to be admitted. Patient denies any worsening pain but does feel more SOB> Patient explains that he actually had the fall on Sunday and went to an OSH and was d/c home without any findings. He came here last night and reports that he was found to have rib fractures/pneumonia but wanted to try to care for himself at home. Related Data Home Medications Medication Instructions Recorded Confirmed apixaban 2.5 mg tablet (Eliquis) 2.5 mg PO Q12H 04/18/23 04/18/23 atorvastatin 20 mg tablet 20 mg PO DAILY 04/18/23 04/18/23 bupropion HCl 100 mg tablet,12 hr 100 mg PO DAILY 04/18/23 04/18/23 sustained-release diltiazem HCl 240 mg 240 mg PO DAILY 04/18/23 04/18/23 capsule,extended release 24 hr finasteride 5 mg tablet 5 mg PO DAILY 04/18/23 04/18/23 metformin 500 mg tablet 500 mg PO BID 04/18/23 04/18/23 omeprazole 40 mg capsule,delayed 40 mg PO DAILY 04/18/23 04/18/23 release paroxetine HCl 20 mg tablet 20 mg PO DAILY 04/18/23 04/18/23 sotalol 80 mg tablet 80 mg PO Q12H 04/18/23 04/18/23 tamsulosin 0.4 mg capsule 0.4 mg PO HS 04/18/23 04/18/23 Allergies Allergy/AdvReac Type Severity Reaction Status Date / Time amiodarone Allergy Unknown Swelling Verified 04/18/23 10:21 iodine Allergy Unknown Rash Verified 04/18/23 17:51 naproxen Allergy Unknown Hives Verified 04/18/23 10:21 Contrast Media Allergy Unknown Unknown Uncoded 04/18/23 10:21 shell fish Allergy Unknown urticaria Uncoded 04/18/23 10:21 Review of Systems Review of Systems: CONSTITUTIONAL: Denies fever, chills, or sweats. EYES: Denies visual changes, redness, or discharge. ENT: Denies rhinorrhea, congestion, sore throat, or otalgia. CARDIOVASCULAR: Reports chest wall pain more on the right side, palpitations, or edema. RESPIRATORY: Complains of worsening shortness of breath. GASTROINTESTINAL: Denies abdominal pain, nausea, vomiting, or diarrhea. GENITOURINARY: Denies dysuria or hematuria. SKIN: Denies rash or itching. MUSCULOSKELETAL: Denies back pain, joint pain, or myalgia. NEUROLOGIC: Denies headache, numbness, dizziness, or weakness. PSYCHIATRIC: Denies anxiety or depression. [facility] Past Medical History Medical History Body mass index (BMI) of 40.0-44.9 in adult (01/21/19) BPH (benign prostatic hyperplasia) Cataract (lens) fragments in eye following cataract surgery, unspecified eye COPD (chronic obstructive pulmonary disease) Counseling on health promotion and disease prevention Diabetes Elevated antinuclear antibody (NATALIE) level Generalized osteoarthritis of multiple sites Hx of nephrolithotomy with removal of calculi Inflammatory arthropathy Kidney stone Obesity hypoventilation syndrome DONITA and COPD overlap syndrome Positive NATALIE (antinuclear antibody) (02/2018) Restrictive lung disease secondary to obesity Vitiligo Surgical History Surgical History History of back surgery History of cardiac radiofrequency ablation (RFA) Family History Family History Father Patient's father is Sibling Patient's sister is Mother Family history of Alzheimer's disease Social History Social History Social History: Smoking status: Never smoker Second hand tobacco smoke exposure: No [place]
[2023-04-18] MEDS: AZITHROMYCIN 500 MG/NS 250 ML 500 MG/250 ML BAG 250 MG IVPB (15:05)
[2023-04-18] MEDS: oxyCODONE/ACETAMINOPHEN (*CRX) 5-325 MG TABLET 1 TABLET PO ×2 (15:39→21:54)
--- NOTE | 2023-04-18 15:45 | PC.NURSE ---
Throughout patient's ER stay patient has consistently remained at 88-90% on home O2 of 6L per NC. On reassessment patient lying pretty flat on his right side and moaning in pain. Called [facility] to request pain medications. Verbal order received. RN entered patient's room and noted O2 decreasing to 78% on the 6L NC. Patient placed on high-flow briefly and oxygen increased to low 80s. MD entered the room and patient reposition to a more upright semi-tim's position and placed on non-rebreather. O2 saturation of 96% on non-rebreather.
[2023-04-18 16:26] LABS: Alveolar/Arterial O2 Gradient 182.5 mmHg; Base Excess ABG 5.9 mEq/l (+/-2.0); Fractional Inspired Oxygen 44 %; HCO3 ABG 34.3 mEq/l (22.0-26.0); Oxygen Content ABG 15.3 %vol (16.0-22.0); PO2 ABG 52.3 mmHg (80.0-100.0); PO2 FiO2 Ratio Arterial Blood 1.19 %; Total Hemoglobin 12.9 g/dL (12.0-18.0); pH ABG 7.313 (7.350-7.450)
[2023-04-18 16:28] LABS: Oxygen Saturation ABG 82.7 % (95.0-100.0); PCO2 ABG 69.2 mmHg (35.0-45.0)
[2023-04-18 16:29] LABS: Device HIGH FLOW NASAL CANN; Modified Allen's Test Pass; Oxyhemoglobin 84.3 % THb (90.0-100.0); Site Drawn RIGHT RADIAL
--- NOTE | 2023-04-18 17:10 | ADMGEN ---
This patient, Jake Martin, was admitted to Intensive Care Unit-5. Patient/family oriented to hospital policies and general routines including ID bracelet, bed and alarms, visiting hours, pain management, procedures, bathroom and other care routines, personal items, smoking policy, room service/diet, and visiting hours. Information on how to activate the Rapid Response Team has been discussed. Patient/Family are encouraged to report perceived risks to care and to ask questions if they do not understand what they are told or what they should do.
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
[2023-04-18] MEDS: MORPHINE SULFATE (*CRX) 2 MG/ML INJ IV PUSH (19:41)
[2023-04-18 19:42] LABS: Glucose Point of Care 143 mg/dl (65-105)
[2023-04-18] MEDS: LORazepam INJ (*CRX) 2 MG/ML VIAL 0.5 MG IV PUSH (20:51)
[2023-04-18] MEDS: TOLNAFTATE 1% POWDER 45 GM BTL 1 APPLIC TOPICAL (21:55)
[2023-04-18] MEDS: APIXABAN 2.5 MG TABLET PO (21:55)
[2023-04-18] MEDS: SOTALOL HCL 80 MG TABLET PO (21:55)
[2023-04-18] MEDS: TAMSULOSIN HCL 0.4 MG CAPSULE PO (21:55)
[2023-04-18] MEDS: LIDOCAINE 5% PATCH 2 PATCH TRANSDERM (23:12)
[2023-04-19] VITALS (27 sets, daily range): BP systolic 111–144; BP diastolic 57–73; PULSE 65–80; RESP 18–24; TEMP 36.9–37.7; O2SAT 90–98
[2023-04-19] MEDS: ALBUTEROL SULFATE NEB 2.5 MG/3 ML INH INHALATION ×4 (00:26→20:05)
[2023-04-19] MEDS: IPRATROPIUM BR 0.02% INH SOLN 0.5 MG/2.5 ML VIAL INHALATION ×4 (00:26→20:06)
[2023-04-19] MEDS: MORPHINE SULFATE (*CRX) 2 MG/ML INJ IV PUSH ×3 (01:45→20:55)
[2023-04-19 04:42] LABS: Basophils Percent Auto 0.5 % (0.2-1.2); Eosinophils Absolute Auto 0.1 K/mm3 (0-0.3); Eosinophils Percent Auto 0.8 % (0-4.4); Hematocrit 39.7 % (42.0-52.0); Hemoglobin 11.8 g/dL (14.0-18.0); Immature Granulocyte Absolute 0.03 K/mm3 (0.00-0.031); Immature Granulocyte Percent A 0.4 % (0-0.5); Lymphocytes Absolute Auto 1.37 K/mm3 (0.9-3.2); Lymphocytes Percent Auto 16.4 % (18.3-44.2); Mean Corpuscular HGB Conc 29.7 g/dl (32-36); Mean Corpuscular Hemoglobin 29.1 pg (26-34); Mean Platelet Volume 9.9 fl (7.4-10.4); Monocytes Absolute Auto 1.1 K/mm3 (0.1-0.6); Neutrophils Absolute Auto 5.8 K/mm3 (1.3-6.7); Neutrophils Percent Auto 68.9 % (45.5-73.1); Platelet Count Result 205 k/mm3 (150-375); Red Blood Count 4.05 M/mm3 (4.6-6.20); Red Cell Distribution Width 14.6 % (11.5-14.5); White Blood Count 8.4 K/mm3 (4.5-10.0)
[2023-04-19 04:51] LABS: Hemoglobin A1C 6.8 % (<5.7)
[2023-04-19 04:54] LABS: Alanine Aminotransferase 18 U/L (6-50); Albumin Level 3.7 g/dL (3.5-5.1); Alkaline Phosphatase 89 U/L (38-126); Anion Gap 3 mmol/L (8-16); Aspartate Amino Transferase 20 U/L (17-59); Bilirubin,Total 0.5 mg/dL (0.2-1.3); Blood Urea Nitrogen 18 mg/dL (9-20); Calcium 8.8 mg/dL (8.4-10.2); Carbon Dioxide 38 mmol/L (22-30); Chloride 97 mmol/L (98-107); Estimated CRCL calculation 88 ml/min; Estimated Glomerular Filt Rate > 60; Glucose 140 mg/dL (65-110); Potassium 4.3 mmol/L (3.4-5.0); Sodium 138 mmol/L (137-145)
[2023-04-19 04:56] LABS: Lactic Acid Reflex 1.1 mmol/L (0.7-2.0)
[2023-04-19 05:14] LABS: Alveolar/Arterial O2 Gradient 184.3 mmHg; Base Excess ABG 6.8 mEq/l (+/-2.0); Carboxyhemoglobin 0.3 % THb (0-2.0); Fractional Inspired Oxygen 45 %; HCO3 ABG 34.5 mEq/l (22.0-26.0); Methemoglobin ABG 0.3 %THb (0-1.5); Oxygen Content ABG 16.5 %vol (16.0-22.0); Oxygen Saturation ABG 90.7 % (95.0-100.0); Oxyhemoglobin 91.6 % THb (90.0-100.0); PO2 ABG 63.8 mmHg (80.0-100.0); PO2 FiO2 Ratio Arterial Blood 1.42 %; Reduced Hemoglobin 7.8 %THb (0-5.0); Total Hemoglobin 12.8 g/dL (12.0-18.0); pH ABG 7.349 (7.350-7.450)
[2023-04-19 05:16] LABS: Device BIPAP; Modified Allen's Test Pass; Site Drawn RIGHT RADIAL
[2023-04-19 05:17] LABS: Expiratory Pressure 8 cmH2O; Inspiratory Pressure 16 cmH2O
[2023-04-19 05:39] LABS: Platelet Estimate Adequate (Adequate)
[2023-04-19 05:40] LABS: Hypochromasia 1+ (NORMAL); Microcytosis 1+ (NORMAL); Schistocytes None Seen (NORMAL)
[2023-04-19 07:39] LABS: Glucose Point of Care 153 mg/dl (65-105)
[2023-04-19] MEDS: TOLNAFTATE 1% POWDER 45 GM BTL 1 APPLIC TOPICAL ×2 (09:00→20:29)
[2023-04-19 11:42] LABS: Glucose Point of Care 134 mg/dl (65-105)
--- NOTE | 2023-04-19 11:50 | WPDCNINT ---
Assessment and Plan Assessment and plan (1) Hypercapnic respiratory failure: Code(s): J96.92 - Respiratory failure, unspecified with hypercapnia Status: Acute Assessment and Plan: Hypercapnic respiratory failure likely related to obesity hypoventilation syndrome, obstructive sleep apnea, fall with right rib fractures, shallow breaths secondary to pain -patient on BiPAP alternating with Vapotherm -ABGs improving -patient does use 6 L of oxygen at home via nasal cannula -continue bronchodilators (2) Chronic respiratory failure: Code(s): J96.10 - Chronic respiratory failure, unspecified whether with hypoxia or hypercapnia Status: Acute Assessment and Plan: Chronic respiratory failure secondary to sepsis severe COPD on 6 L oxygen at home and bronchodilators (3) Atrial fibrillation: Code(s): I48.91 - Unspecified atrial fibrillation Status: Acute Assessment and Plan: Currently in sinus rhythm, rate control, on Eliquis at home (4) CKD (chronic kidney disease): Code(s): N18.9 - Chronic kidney disease, unspecified Status: Acute Assessment and Plan: Chronic kidney disease stage 3 -creatinine seems to be stable at 0.9 -continue monitor urine output, renal function and electrolytes (5) COPD (chronic obstructive pulmonary disease): Code(s): J44.9 - Chronic obstructive pulmonary disease, unspecified Status: Acute Assessment and Plan: COPD with chronic respiratory failure, continue supplemental oxygen, bronchodilators (6) Diabetes: Qualifiers: Diabetes mellitus type: type 2 Diabetes mellitus nursing home insulin use: with nursing home use Diabetes mellitus complication status: with neurologic complications Diabetes mellitus complication detail: with polyneuropathy Qualified Code(s): E11.42 - Type 2 diabetes mellitus with diabetic polyneuropathy; Z79.4 - intermodal customer service (current) use of insulin Code(s): E11.9 - Type 2 diabetes mellitus without complications Status: Acute Assessment and Plan: Continue Accu-Cheks and sliding scale insulin will hold Lantus until patient starts eating (7) Multiple rib fractures: Qualifiers: Encounter type: subsequent encounter Fracture type: closed Laterality: bilateral Code(s): S22.49XA - Multiple fractures of ribs, unspecified side, initial encounter for closed fracture Status: Acute Assessment and Plan: Status post fall, CT scan of the chest showed multiple right-sided rib fractures, old left rib fractures, bilateral lower lobe and middle lobe infiltrate/atelectasis, cardiomegaly, coronary artery atherosclerosis, mild thoracic aneurysm, probable cholelithiasis -left placed lidocaine patches for pain control -hypercapnic respiratory failure likely secondary to shallow breathing due to rib fracture pain -continue p.r.n. morphine and Percocet (8) Obesity hypoventilation syndrome: Code(s): E66.2 - Morbid (severe) obesity with alveolar hypoventilation Status: Acute Assessment and Plan: BiPAP at night and while asleep during the day (9) DONITA and COPD overlap syndrome: Code(s): G47.33 - Obstructive sleep apnea (adult) (pediatric); J44.9 - Chronic obstructive pulmonary disease, unspecified Status: Acute Assessment and Plan: BiPAP at night Plan DVT prophylaxis: Eliquis Stress ulcer prophylaxis: Protonix Nutrition: Heart healthy diet Code Status: Full code Critical Care Time Spent: 48 minutes Discussed with at bedside and in rounds and updated her with patient's condition and plan of care. I answered all questions Due to a high probability of clinically significant, life threatening deterioration, the patient required my highest level of preparedness to intervene emergently and I personally spent this critical care time directly and personally managing the patient. This critical care time included obtaining a history; e
[2023-04-19] MEDS: AZITHROMYCIN 500 MG/NS 250 ML 500 MG/250 ML BAG 250 MG IVPB (13:57)
[2023-04-19 14:52] LABS: Fractional Inspired Oxygen 45 %; HCO3 ABG 31.8 mEq/l (22.0-26.0); Oxygen Content ABG 18.1 %vol (16.0-22.0); Oxygen Saturation ABG 95.3 % (95.0-100.0); Oxyhemoglobin 94.4 % THb (90.0-100.0); PO2 ABG 76.8 mmHg (80.0-100.0); PO2 FiO2 Ratio Arterial Blood 1.71 %; Total Hemoglobin 13.6 g/dL (12.0-18.0); pH ABG 7.413 (7.350-7.450)
[2023-04-19 15:03] LABS: Device NON-INVASIVE VENT; Modified Allen's Test Pass; Site Drawn RIGHT RADIAL
[2023-04-19 15:04] LABS: Non-Invasive Expiratory Pressure 8 CMH2O; Non-Invasive Inspiratory Pressure 18 CMH2O; Non-Invasive Vent Rate 12 /MIN
[2023-04-19] MEDS: oxyCODONE/ACETAMINOPHEN (*CRX) 5-325 MG TABLET 1 TABLET PO ×3 (15:10→23:03)
[2023-04-19 16:14] LABS: Glucose Point of Care 125 mg/dl (65-105)
[2023-04-19] MEDS: APIXABAN 2.5 MG TABLET PO (20:28)
[2023-04-19] MEDS: SOTALOL HCL 80 MG TABLET PO (20:28)
[2023-04-19] MEDS: TAMSULOSIN HCL 0.4 MG CAPSULE PO (20:28)
[2023-04-19] MEDS: PANTOPRAZOLE 40 MG TABLET PO (20:28)
[2023-04-19 20:42] LABS: Glucose Point of Care 156 mg/dl (65-105)
[2023-04-20] VITALS (21 sets, daily range): BP systolic 118–160; BP diastolic 49–88; PULSE 71–84; RESP 15–22; TEMP 36.9–37.6; O2SAT 91–96
[2023-04-20] MEDS: IPRATROPIUM BR 0.02% INH SOLN 0.5 MG/2.5 ML VIAL INHALATION ×4 (01:41→21:13)
[2023-04-20] MEDS: ALBUTEROL SULFATE NEB 2.5 MG/3 ML INH INHALATION ×4 (01:42→20:50)
[2023-04-20] MEDS: MORPHINE SULFATE (*CRX) 2 MG/ML INJ IV PUSH ×5 (02:13→22:48)
[2023-04-20] MEDS: oxyCODONE/ACETAMINOPHEN (*CRX) 5-325 MG TABLET 1 TABLET PO ×3 (04:06→20:02)
[2023-04-20 04:39] LABS: Alveolar/Arterial O2 Gradient 181.6 mmHg; Base Excess ABG 5.9 mEq/l (+/-2.0); Carboxyhemoglobin 1.3 % THb (0-2.0); Fractional Inspired Oxygen 44 %; Methemoglobin ABG 0.2 %THb (0-1.5); Oxygen Content ABG 16.4 %vol (16.0-22.0); Oxygen Saturation ABG 90.9 % (95.0-100.0); Oxyhemoglobin 90.1 % THb (90.0-100.0); PCO2 ABG 60.1 mmHg (35.0-45.0); PO2 ABG 63.6 mmHg (80.0-100.0); PO2 FiO2 Ratio Arterial Blood 1.45 %; Reduced Hemoglobin 8.4 %THb (0-5.0); Total Hemoglobin 12.9 g/dL (12.0-18.0); pH ABG 7.358 (7.350-7.450)
[2023-04-20 04:40] LABS: Device NASAL CANNULA; Modified Allen's Test Pass; Site Drawn RIGHT RADIAL
[2023-04-20 04:53] LABS: Basophils Absolute Auto 0.1 K/mm3 (0.0-0.1); Basophils Percent Auto 0.8 % (0.2-1.2); Eosinophils Absolute Auto 0.2 K/mm3 (0-0.3); Eosinophils Percent Auto 2.4 % (0-4.4); Hemoglobin 11.8 g/dL (14.0-18.0); Immature Granulocyte Absolute 0.02 K/mm3 (0.00-0.031); Immature Granulocyte Percent A 0.3 % (0-0.5); Lymphocytes Absolute Auto 1.18 K/mm3 (0.9-3.2); Lymphocytes Percent Auto 16.4 % (18.3-44.2); Mean Corpuscular HGB Conc 30.3 g/dl (32-36); Mean Corpuscular Hemoglobin 29.4 pg (26-34); Mean Corpuscular Volume 97.3 fl (80-100); Mean Platelet Volume 9.7 fl (7.4-10.4); Monocytes Absolute Auto 0.8 K/mm3 (0.1-0.6); Monocytes Percent Auto 10.6 % (2.6-8.5); Neutrophils Percent Auto 69.5 % (45.5-73.1); Platelet Count Result 221 k/mm3 (150-375); Red Blood Count 4.01 M/mm3 (4.6-6.20); Red Cell Distribution Width 14.9 % (11.5-14.5); White Blood Count 7.2 K/mm3 (4.5-10.0)
[2023-04-20 05:05] LABS: Alanine Aminotransferase 17 U/L (6-50); Albumin Level 3.6 g/dL (3.5-5.1); Alkaline Phosphatase 80 U/L (38-126); Anion Gap 6 mmol/L (8-16); Aspartate Amino Transferase 24 U/L (17-59); Bilirubin,Total 0.6 mg/dL (0.2-1.3); Blood Urea Nitrogen 15 mg/dL (9-20); Calcium 8.6 mg/dL (8.4-10.2); Carbon Dioxide 35 mmol/L (22-30); Chloride 98 mmol/L (98-107); Estimated CRCL calculation 99 ml/min; Estimated Glomerular Filt Rate > 60; Glucose 112 mg/dL (65-110); Phosphorus 3.2 mg/dL (2.5-4.5); Sodium 139 mmol/L (137-145)
[2023-04-20 07:39] LABS: Glucose Point of Care 124 mg/dl (65-105)
[2023-04-20] MEDS: PARoxetine 20 MG TABLET PO (08:29)
[2023-04-20] MEDS: LIDOCAINE 5% PATCH 2 PATCH TRANSDERM (08:29)
[2023-04-20] MEDS: APIXABAN 2.5 MG TABLET PO ×2 (08:29→20:02)
[2023-04-20] MEDS: FINASTERIDE 5 MG TABLET PO (08:29)
[2023-04-20] MEDS: ATORVASTATIN 20 MG TABLET PO (08:29)
[2023-04-20] MEDS: buPROPion HCL SR (12HR) 100 MG TABCR PO (08:29)
[2023-04-20] MEDS: SOTALOL HCL 80 MG TABLET PO ×2 (08:29→20:02)
[2023-04-20] MEDS: FUROSEMIDE 20 MG TABLET PO (08:29)
[2023-04-20] MEDS: dilTIAZem HCL CD 240 MG CAP.24HR PO (08:30)
[2023-04-20] MEDS: TOLNAFTATE 1% POWDER 45 GM BTL 1 APPLIC TOPICAL ×2 (08:31→20:03)
[2023-04-20] MEDS: PANTOPRAZOLE 40 MG TABLET PO ×2 (08:31→20:02)
--- NOTE | 2023-04-20 11:12 | WPDINTPN ---
Progress Note: A&P Assessment and Plan (1) Hypercapnic respiratory failure: Code(s): J96.92 - Respiratory failure, unspecified with hypercapnia Status: Acute Assessment and Plan: Hypercapnic respiratory failure likely related to obesity hypoventilation syndrome, obstructive sleep apnea, fall with right rib fractures, shallow breaths secondary to pain -continue patient on BiPAP alternating with Vapotherm -ABGs improving -patient does use 6 L of oxygen at home via nasal cannula -continue bronchodilators (2) Chronic respiratory failure: Code(s): J96.10 - Chronic respiratory failure, unspecified whether with hypoxia or hypercapnia Status: Acute Assessment and Plan: Chronic respiratory failure secondary to sepsis severe COPD on 6 L oxygen at home and bronchodilators (3) Atrial fibrillation: Code(s): I48.91 - Unspecified atrial fibrillation Status: Acute Assessment and Plan: Currently in sinus rhythm, rate control, on Eliquis at home (4) CKD (chronic kidney disease): Code(s): N18.9 - Chronic kidney disease, unspecified Status: Acute Assessment and Plan: Chronic kidney disease stage 3 -creatinine seems to be stable -continue monitor urine output, renal function and electrolytes (5) COPD (chronic obstructive pulmonary disease): Code(s): J44.9 - Chronic obstructive pulmonary disease, unspecified Status: Acute Assessment and Plan: COPD with chronic respiratory failure, continue supplemental oxygen, bronchodilators (6) Diabetes: Qualifiers: Diabetes mellitus type: type 2 Diabetes mellitus [facility] insulin use: with [facility] use Diabetes mellitus complication status: with neurologic complications Diabetes mellitus complication detail: with polyneuropathy Qualified Code(s): E11.42 - Type 2 diabetes mellitus with diabetic polyneuropathy; Z79.4 - snf (current) use of insulin Code(s): E11.9 - Type 2 diabetes mellitus without complications Status: Acute Assessment and Plan: Continue Accu-Cheks and sliding scale insulin -hold Lantus (7) Multiple rib fractures: Qualifiers: Encounter type: subsequent encounter Fracture type: closed Laterality: bilateral Code(s): S22.49XA - Multiple fractures of ribs, unspecified side, initial encounter for closed fracture Status: Acute Assessment and Plan: Status post fall, CT scan of the chest showed multiple right-sided rib fractures, old left rib fractures, bilateral lower lobe and middle lobe infiltrate/atelectasis, cardiomegaly, coronary artery atherosclerosis, mild thoracic aneurysm, probable cholelithiasis -hypercapnic respiratory failure likely secondary to shallow breathing due to rib fracture pain -continue p.r.n. morphine and Percocet -continue lidocaine patches at the site of rib pain (8) Obesity hypoventilation syndrome: Code(s): E66.2 - Morbid (severe) obesity with alveolar hypoventilation Status: Acute Assessment and Plan: BiPAP at night and while asleep during the day (9) DONITA and COPD overlap syndrome: Code(s): G47.33 - Obstructive sleep apnea (adult) (pediatric); J44.9 - Chronic obstructive pulmonary disease, unspecified Status: Acute Assessment and Plan: BiPAP at night Plan DVT prophylaxis: Eliquis Stress ulcer prophylaxis: Protonix Nutrition: Heart healthy diet Code Status: Full code Critical Care Time Spent: 32 minutes Patient can be transferred out of the ICU Discussed with at bedside and in rounds and updated her with patient's condition and plan of care. I answered all questions Due to a high probability of clinically significant, life threatening deterioration, the patient required my highest level of preparedness to intervene emergently and I personally spent this critical care time directly and personally managing the patient. This critical care time included
[2023-04-20] MEDS: AZITHROMYCIN 250 MG TABLET 500 MG PO (11:24)
[2023-04-20 11:38] LABS: Glucose Point of Care 168 mg/dl (65-105)
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
[2023-04-20 16:32] LABS: Glucose Point of Care 207 mg/dl (65-105)
[2023-04-20] MEDS: INSULIN ASPART (*BKC) 100 UNITS/ML SUB-Q (16:45)
--- NOTE | 2023-04-20 18:46 | PC.NURSE ---
This patient, Jake Martin, was transferred to [facility] on 04/20/23 at 1840. Personal belongings sent with patient. Report given to Geneva WYNN. Appropriate documentation sent with patient. present.
[2023-04-20] MEDS: TAMSULOSIN HCL 0.4 MG CAPSULE PO (20:01)
[2023-04-20] MEDS: CEFDINIR 300 MG CAPSULE PO (20:02)
[2023-04-20] MEDS: FLUTICASONE/UMECLIDIN/VILANTER 100-62.5-25 MCG ELLIPTA 1 PUFF INHALATION (21:13)
[2023-04-20 22:33] LABS: Glucose Point of Care 226 mg/dl (65-105)
[2023-04-20] MEDS: LORazepam INJ (*CRX) 2 MG/ML VIAL 0.5 MG IV PUSH (22:48)
[2023-04-21] VITALS (18 sets, daily range): BP systolic 142–148; BP diastolic 56–67; PULSE 66–96; RESP 16–24; TEMP 36.2–36.6; O2SAT 90–96
[2023-04-21] MEDS: ALBUTEROL SULFATE NEB 2.5 MG/3 ML INH INHALATION ×4 (02:44→20:56)
[2023-04-21] MEDS: IPRATROPIUM BR 0.02% INH SOLN 0.5 MG/2.5 ML VIAL INHALATION ×4 (02:44→20:55)
--- NOTE | 2023-04-21 02:55 | PCRCNOTE ---
Pt refused to wear Bipap tonight. Pt stated he was comfortable with his nasal cannula. Therapist unable to do Apnea link study or ABG on Bipap since pt refused. Explained to pt again around 0300 that doctor wants him to wear the Bipap and do a study and draw blood afterwards, and pt said he would try and do it tonight.
[2023-04-21] MEDS: MORPHINE SULFATE (*CRX) 2 MG/ML INJ IV PUSH ×3 (04:30→17:47)
[2023-04-21 06:16] LABS: Basophils Percent Auto 0.4 % (0.2-1.2); Eosinophils Absolute Auto 0.2 K/mm3 (0-0.3); Eosinophils Percent Auto 2.8 % (0-4.4); Hematocrit 40.2 % (42.0-52.0); Hemoglobin 12.2 g/dL (14.0-18.0); Immature Granulocyte Absolute 0.03 K/mm3 (0.00-0.031); Immature Granulocyte Percent A 0.4 % (0-0.5); Lymphocytes Absolute Auto 1.18 K/mm3 (0.9-3.2); Lymphocytes Percent Auto 14.9 % (18.3-44.2); Mean Corpuscular HGB Conc 30.3 g/dl (32-36); Mean Corpuscular Hemoglobin 29.5 pg (26-34); Mean Corpuscular Volume 97.3 fl (80-100); Mean Platelet Volume 9.7 fl (7.4-10.4); Monocytes Absolute Auto 0.8 K/mm3 (0.1-0.6); Monocytes Percent Auto 10.6 % (2.6-8.5); Neutrophils Absolute Auto 5.6 K/mm3 (1.3-6.7); Neutrophils Percent Auto 70.9 % (45.5-73.1); Platelet Count Result 215 k/mm3 (150-375); Red Blood Count 4.13 M/mm3 (4.6-6.20); White Blood Count 7.9 K/mm3 (4.5-10.0)
[2023-04-21 06:31] LABS: Alanine Aminotransferase 18 U/L (6-50); Albumin Level 3.8 g/dL (3.5-5.1); Alkaline Phosphatase 92 U/L (38-126); Anion Gap 4 mmol/L (8-16); Aspartate Amino Transferase 24 U/L (17-59); Bilirubin,Total 0.6 mg/dL (0.2-1.3); Blood Urea Nitrogen 21 mg/dL (9-20); Calcium 8.7 mg/dL (8.4-10.2); Carbon Dioxide 36 mmol/L (22-30); Chloride 97 mmol/L (98-107); Estimated CRCL calculation 89 ml/min; Estimated Glomerular Filt Rate > 60; Glucose 193 mg/dL (65-110); Magnesium 2.1 mg/dL (1.6-2.3); Phosphorus 3.8 mg/dL (2.5-4.5); Potassium 4.2 mmol/L (3.4-5.0); Sodium 137 mmol/L (137-145)
[2023-04-21] MEDS: oxyCODONE/ACETAMINOPHEN (*CRX) 5-325 MG TABLET 1 TABLET PO (06:34)
[2023-04-21 08:37] LABS: Glucose Point of Care 170 mg/dl (65-105)
[2023-04-21] MEDS: LIDOCAINE 5% PATCH 2 PATCH TRANSDERM (09:53)
[2023-04-21] MEDS: buPROPion HCL SR (12HR) 100 MG TABCR PO (09:54)
[2023-04-21] MEDS: PARoxetine 20 MG TABLET PO (09:54)
[2023-04-21] MEDS: FINASTERIDE 5 MG TABLET PO (09:54)
[2023-04-21] MEDS: FUROSEMIDE 20 MG TABLET PO (09:54)
[2023-04-21] MEDS: ATORVASTATIN 20 MG TABLET PO (09:54)
[2023-04-21] MEDS: AZITHROMYCIN 250 MG TABLET 500 MG PO (09:54)
[2023-04-21] MEDS: CEFDINIR 300 MG CAPSULE PO ×2 (09:54→20:53)
[2023-04-21] MEDS: dilTIAZem HCL CD 240 MG CAP.24HR PO (09:54)
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
--- NOTE | 2023-04-21 11:12 | PM.IMPN ---
Progress Note: A&P Assessment and Plan (1) Hypercapnic respiratory failure: Code(s): J96.92 - Respiratory failure, unspecified with hypercapnia Status: Acute Assessment and Plan: Hypercapnic respiratory failure likely related to obesity hypoventilation syndrome, obstructive sleep apnea, fall with right rib fractures, shallow breaths secondary to pain -continue patient on BiPAP alternating with Vapotherm -ABGs improving -patient does use 6 L of oxygen at home via nasal cannula -continue bronchodilators (2) Chronic respiratory failure: Code(s): J96.10 - Chronic respiratory failure, unspecified whether with hypoxia or hypercapnia Status: Acute Assessment and Plan: Chronic respiratory failure secondary to sepsis severe COPD on 6 L oxygen at home and bronchodilators (3) Atrial fibrillation: Code(s): I48.91 - Unspecified atrial fibrillation Status: Acute Assessment and Plan: Currently in sinus rhythm, rate control, on Eliquis at home (4) CKD (chronic kidney disease): Code(s): N18.9 - Chronic kidney disease, unspecified Status: Acute Assessment and Plan: Chronic kidney disease stage 3 -creatinine seems to be stable -continue monitor urine output, renal function and electrolytes (5) COPD (chronic obstructive pulmonary disease): Code(s): J44.9 - Chronic obstructive pulmonary disease, unspecified Status: Acute Assessment and Plan: COPD with chronic respiratory failure, continue supplemental oxygen, bronchodilators (6) Diabetes: Qualifiers: Diabetes mellitus type: type 2 Diabetes mellitus [facility]: with [facility] Diabetes mellitus complication status: with neurologic complications Diabetes mellitus complication detail: with polyneuropathy Qualified Code(s): E11.42 - Type 2 diabetes mellitus with diabetic polyneuropathy; Z79.4 - half-way (current) use of insulin Code(s): E11.9 - Type 2 diabetes mellitus without complications Status: Acute Assessment and Plan: Continue Accu-Cheks and sliding scale insulin -hold Lantus (7) Multiple rib fractures: Qualifiers: Encounter type: subsequent encounter Fracture type: closed Laterality: bilateral Code(s): S22.49XA - Multiple fractures of ribs, unspecified side, initial encounter for closed fracture Status: Acute Assessment and Plan: Status post fall, CT scan of the chest showed multiple right-sided rib fractures, old left rib fractures, bilateral lower lobe and middle lobe infiltrate/atelectasis, cardiomegaly, coronary artery atherosclerosis, mild thoracic aneurysm, probable cholelithiasis -hypercapnic respiratory failure likely secondary to shallow breathing due to rib fracture pain -continue p.r.n. morphine and Percocet -continue lidocaine patches at the site of rib pain (8) Obesity hypoventilation syndrome: Code(s): E66.2 - Morbid (severe) obesity with alveolar hypoventilation Status: Acute Assessment and Plan: BiPAP at night and while asleep during the day (9) DONITA and COPD overlap syndrome: Code(s): G47.33 - Obstructive sleep apnea (adult) (pediatric); J44.9 - Chronic obstructive pulmonary disease, unspecified Status: Acute Assessment and Plan: BiPAP at night Plan DVT prophylaxis: Eliquis Stress ulcer prophylaxis: Protonix Nutrition: Heart healthy diet Code Status: Full code Critical Care Time Spent: 32 minutes Patient can be transferred out of the ICU Discussed with at bedside and in rounds and updated her with patient's condition and plan of care. I answered all questions Due to a high probability of clinically significant, life threatening deterioration, the patient required my highest level of preparedness to intervene emergently and I personally spent this critical care time directly and personally managing the patient. This critical care time included
[2023-04-21 11:14] LABS: Free T4 Free Thyroxine 1.27 ng/mL (0.78-2.19)
[2023-04-21] MEDS: PANTOPRAZOLE 40 MG TABLET PO ×2 (11:45→20:54)
[2023-04-21] MEDS: SOTALOL HCL 80 MG TABLET PO ×2 (11:45→20:53)
[2023-04-21] MEDS: TOLNAFTATE 1% POWDER 45 GM BTL 1 APPLIC TOPICAL ×2 (11:46→20:55)
[2023-04-21] MEDS: APIXABAN 2.5 MG TABLET PO ×2 (11:46→20:54)
[2023-04-21] MEDS: oxyCODONE/ACETAMINOPHEN (*CRX) 10-325 MG TABLET 1 TAB PO ×2 (11:47→20:53)
[2023-04-21 11:52] LABS: Alveolar/Arterial O2 Gradient 180.6 mmHg; Base Excess ABG 6.3 mEq/l (+/-2.0); Fractional Inspired Oxygen 44 %; HCO3 ABG 33.9 mEq/l (22.0-26.0); Oxygen Content ABG 17.1 %vol (16.0-22.0); Oxyhemoglobin 90.3 % THb (90.0-100.0); PO2 ABG 61.9 mmHg (80.0-100.0); PO2 FiO2 Ratio Arterial Blood 1.41 %; Total Hemoglobin 13.5 g/dL (12.0-18.0); pH ABG 7.352 (7.350-7.450)
[2023-04-21] MEDS: INSULIN ASPART (*BKC) 100 UNITS/ML SUB-Q ×3 (11:54→21:00)
[2023-04-21 11:58] LABS: Device HIGH FLOW NASAL CANN; Modified Allen's Test Pass; PCO2 ABG 62.5 mmHg (35.0-45.0); Site Drawn RIGHT RADIAL
[2023-04-21 12:00] LABS: Glucose Point of Care 223 mg/dl (65-105)
--- NOTE | 2023-04-21 12:07 | PCOTNOTE ---
Attempted OT evaluation, pt eating lunch. Will follow.
--- NOTE | 2023-04-21 13:29 | PCOTNOTE ---
Attempted OT evaluation. Pt receiving breathing treatment. Will follow.
[2023-04-21 17:48] LABS: Glucose Point of Care 233 mg/dl (65-105)
--- NOTE | 2023-04-21 20:23 | PC.NURSE ---
Pt has had several reports of pain today. Pt has been treated with morphine and percocet. Pt compliant with medication. Pt does not express any other needs at this time. Pt reports that he was told he has to be on avaps again tonight. Pt has been monitored for any changes in status.
[2023-04-21 20:36] LABS: Glucose Point of Care 246 mg/dl (65-105)
[2023-04-21] MEDS: TAMSULOSIN HCL 0.4 MG CAPSULE PO (20:53)
[2023-04-22] VITALS (14 sets, daily range): BP systolic 148–151; BP diastolic 70–75; PULSE 66–80; RESP 18–27; TEMP 36.2–36.4; O2SAT 91–96
[2023-04-22] MEDS: oxyCODONE/ACETAMINOPHEN (*CRX) 10-325 MG TABLET 1 TAB PO ×2 (05:42→13:14)
[2023-04-22 05:48] LABS: Alveolar/Arterial O2 Gradient 161.5 mmHg; Base Excess ABG 3.5 mEq/l (+/-2.0); Fractional Inspired Oxygen 45 %; HCO3 ABG 32.6 mEq/l (22.0-26.0); Oxygen Content ABG 21.1 %vol (16.0-22.0); Oxygen Saturation ABG 94.3 % (95.0-100.0); PO2 ABG 80.8 mmHg (80.0-100.0); Total Hemoglobin 16.1 g/dL (12.0-18.0)
[2023-04-22 05:52] LABS: pH ABG 7.292 (7.350-7.450)
[2023-04-22 05:53] LABS: Device BIPAP; Modified Allen's Test Pass; PCO2 ABG 69.1 mmHg (35.0-45.0); Site Drawn RIGHT RADIAL
[2023-04-22 05:54] LABS: Expiratory Pressure 8 cmH2O; Inspiratory Pressure 500 cmH2O
[2023-04-22 08:17] LABS: Glucose Point of Care 189 mg/dl (65-105)
[2023-04-22] MEDS: ALBUTEROL SULFATE NEB 2.5 MG/3 ML INH INHALATION ×2 (08:53→13:29)
[2023-04-22] MEDS: IPRATROPIUM BR 0.02% INH SOLN 0.5 MG/2.5 ML VIAL INHALATION ×2 (08:53→13:29)
[2023-04-22] MEDS: MORPHINE SULFATE (*CRX) 2 MG/ML INJ IV PUSH ×2 (09:58→17:34)
[2023-04-22] MEDS: CEFDINIR 300 MG CAPSULE PO ×2 (10:00→20:05)
[2023-04-22] MEDS: SOTALOL HCL 80 MG TABLET PO ×2 (10:01→20:05)
[2023-04-22] MEDS: dilTIAZem HCL CD 240 MG CAP.24HR PO (10:01)
[2023-04-22] MEDS: APIXABAN 2.5 MG TABLET PO ×2 (10:01→21:05)
[2023-04-22] MEDS: AZITHROMYCIN 250 MG TABLET 500 MG PO (10:02)
[2023-04-22] MEDS: PANTOPRAZOLE 40 MG TABLET PO ×2 (10:02→20:05)
[2023-04-22] MEDS: PARoxetine 20 MG TABLET PO (10:02)
[2023-04-22] MEDS: buPROPion HCL SR (12HR) 100 MG TABCR PO (10:03)
[2023-04-22] MEDS: FUROSEMIDE 20 MG TABLET PO (10:03)
[2023-04-22] MEDS: FINASTERIDE 5 MG TABLET PO (10:03)
[2023-04-22] MEDS: LIDOCAINE 5% PATCH 2 PATCH TRANSDERM (10:04)
[2023-04-22] MEDS: ATORVASTATIN 20 MG TABLET PO (10:04)
[2023-04-22] MEDS: TOLNAFTATE 1% POWDER 45 GM BTL 1 APPLIC TOPICAL ×2 (10:04→20:05)
--- NOTE | 2023-04-22 11:29 | PM.IMPN ---
Progress Note: A&P Assessment and Plan (1) Hypercapnic respiratory failure: Code(s): J96.92 - Respiratory failure, unspecified with hypercapnia Status: Acute Assessment and Plan: Appreciate Pulmonary help. Noninvasive ventilator at night. ABG noted. Will likely need this set up prior to discharge. (2) Chronic respiratory failure: Code(s): J96.10 - Chronic respiratory failure, unspecified whether with hypoxia or hypercapnia Status: Acute Assessment and Plan: Chronic. On 5-6 L at home. Currently on 6L. (3) Atrial fibrillation: Code(s): I48.91 - Unspecified atrial fibrillation Status: Acute Assessment and Plan: Currently in sinus rhythm, rate control, on Eliquis at home (4) CKD (chronic kidney disease): Code(s): N18.9 - Chronic kidney disease, unspecified Status: Acute Assessment and Plan: Monitor kidney function electrolytes and urine output. 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 Code(s): E11.9 - Type 2 diabetes mellitus without complications Status: Acute Assessment and Plan: Continue Accu-Cheks and sliding scale insulin -hold Lantus (7) Multiple rib fractures: Qualifiers: Encounter type: subsequent encounter Fracture type: closed Laterality: bilateral Code(s): S22.49XA - Multiple fractures of ribs, unspecified side, initial encounter for closed fracture Status: Acute Assessment and Plan: Pain control (8) Obesity hypoventilation syndrome: Code(s): E66.2 - Morbid (severe) obesity with alveolar hypoventilation Status: Acute Assessment and Plan: BiPAP at night and while asleep during the day (9) DONITA and COPD overlap syndrome: Code(s): G47.33 - Obstructive sleep apnea (adult) (pediatric); J44.9 - Chronic obstructive pulmonary disease, unspecified Status: Acute Assessment and Plan: BiPAP at night Plan DVT prophylaxis: Eliquis Stress ulcer prophylaxis: Protonix Nutrition: Heart healthy diet Code Status: Full code Critical Care Time Spent: 32 minutes Patient can be transferred out of the ICU Discussed with at bedside and in rounds and updated her with patient's condition and plan of care. I answered all questions Due to a high probability of clinically significant, life threatening deterioration, the patient required my highest level of preparedness to intervene emergently and I personally spent this critical care time directly and personally managing the patient. This critical care time included obtaining a history; examining the patient; pulse oximetry; ordering and review of studies; arranging urgent treatment with development of a management plan; evaluation of patient's response to treatment; frequent reassessment; and discussions with other providers. It was exclusive of separately billable procedures and treating other patients and teaching time. Please see Assessment and Plan section and the rest of the note for further information on patient assessment and treatment This dictation may have been done utilizing a voice recognition system. Attempts have been made to correct errors. However, there may be uncorrected grammatical, spelling, and recognitions errors present. Subjective Date/time seen: 04/22/23 11:29 Interval history: Patient is
[2023-04-22 12:08] LABS: Glucose Point of Care 295 mg/dl (65-105)
[2023-04-22] MEDS: INSULIN ASPART (*BKC) 100 UNITS/ML SUB-Q ×2 (12:08→22:27)
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
[2023-04-22 17:22] LABS: Glucose Point of Care 194 mg/dl (65-105)
--- NOTE | 2023-04-22 19:26 | PC.NURSE ---
Per Shift report Pt had critical ABG's that were reported to overnight provider. Provider stated that it was a day shift problem. Day shift provider was made aware. No new orders. Pulmonary saw pt today. Apnea link for pt tonight. Pt sat up in chair today for a few hours. Pt tolerated well. Pt had new IV placed, and tolerated well. Pt has had at bedside. Pt has been monitored for any changes in status.
[2023-04-22] MEDS: TAMSULOSIN HCL 0.4 MG CAPSULE PO (20:05)
[2023-04-22 22:06] LABS: Glucose Point of Care 269 mg/dl (65-105)
[2023-04-23] VITALS (11 sets, daily range): BP systolic 117–146; BP diastolic 44–74; PULSE 62–82; RESP 16–28; TEMP 36.6–36.8; O2SAT 89–97
[2023-04-23] MEDS: MORPHINE SULFATE (*CRX) 2 MG/ML INJ IV PUSH (02:33)
[2023-04-23 05:12] LABS: Alveolar/Arterial O2 Gradient 125.8 mmHg; Base Excess ABG 4.9 mEq/l (+/-2.0); Fractional Inspired Oxygen 36 %; HCO3 ABG 32.8 mEq/l (22.0-26.0); Oxygen Content ABG 14.9 %vol (16.0-22.0); PO2 FiO2 Ratio Arterial Blood 1.53 %; Total Hemoglobin 12.3 g/dL (12.0-18.0); pH ABG 7.318 (7.350-7.450)
[2023-04-23 05:13] LABS: PCO2 ABG 65.4 mmHg (35.0-45.0)
[2023-04-23 05:14] LABS: Oxygen Saturation ABG 85.1 % (95.0-100.0)
[2023-04-23 05:15] LABS: Device NON-INVASIVE VENT; Modified Allen's Test Pass; Non-Invasive Expiratory Pressure 8 CMH2O; Non-Invasive Vent Rate 24 /MIN; Oxyhemoglobin 86.4 % THb (90.0-100.0); Site Drawn RIGHT RADIAL
[2023-04-23 05:16] LABS: Non-Invasive Inspiratory Pressure 9 CMH2O
[2023-04-23] MEDS: oxyCODONE/ACETAMINOPHEN (*CRX) 10-325 MG TABLET 1 TAB PO ×3 (05:56→18:51)
--- NOTE | 2023-04-23 07:43 | ECHO_ITS ---
Patient Info Name: Jake Martin Age: 77 years : 1945 Gender: Male Ht: 69 in Wt: 336 lbs BSA: 2.81 m2 HR: 65 bpm BP: 138 / 70 mmHg Heart Rhythm: Sinus Rhythm Technical Quality: Poor Exam Date: 04/23/2023 3:57 PM Exam Location: [facility] Patient Status: Inpatient Admit Date: 04/18/2023 Staff Ordering Physician: Alex Canales MD Global Risk Management Director: Torrie Rutledge RDCS Attending Provider: Alex Gomez MD Referring Physician: Parker COX; Exam Type: CA echo dop bubble study w con Study Info Indications - hypoxia, assess for PFO Complete two-dimentional, color flow and Doppler transthoracic echocardiogram is performed with agitated saline and with contrast to opacify the left ventricle and to improve the delineation of the left ventricle endocardial borders. Contrast/Agitated Saline Contrast/Ag. Saline: Agitated Saline Amount: 20.00 ml Administered By: Kerry Álvarez Existing IV Access: Yes IV Access Condition: patent with no signs of infiltration Contrast/Ag. Saline: Definity Amount: 2.00 ml Administered By: Kerry Álvarez Existing IV Access: Yes IV Access Condition: patent with no signs of infiltration Summary 1. Normal left ventricular size with mild concentric hypertrophy. Good systolic function of all segments with an ejection fraction 65-70%. Diastolic function is indeterminate. 2. Right ventricular chamber dimension is mildly enlarged and mildly hypokinetic. 3. No significant valve disease. 4. Moderate pulmonary hypertension, estimated pulmonary arterial systolic pressure is 54 mmHg. 5. No evidence of intracardiac shunting during normal respiration and Valsalva with bubble study. 6. Technically difficult study, definity echo contrast used. 7. Underlying rhythm is probably NSR. Left Ventricle Left ventricular chamber dimension is normal. Left ventricular systolic function is normal, estimated at 65-70%. There is mildly increased left ventricular wall thickness. Left ventricular septal wall motion is normal. The left ventricular diastolic function is indeterminate. Right Ventricle Right ventricular chamber dimension is mildly enlarged and mildly hypokinetic. Right ventricular systolic function is reduced. Left Atria Left atrial chamber dimension is normal. Right Atria Right atrial chamber dimension is normal. Aortic Valve The aortic valve is trileaflet. There is mild aortic valve sclerosis. There is no aortic valve stenosis. There is no aortic valve regurgitation. Pulmonic Valve The pulmonic valve is normal. There is no pulmonic valve stenosis. There is no pulmonic regurgitation. Mitral Valve The mitral valve has normal leaflets. There is no mitral valve stenosis. There is no mitral valve regurgitation. Tricuspid Valve The tricuspid valve leaflets are normal. There is no significant tricuspid valve stenosis. There is trace tricuspid valve regurgitation. Moderate pulmonary hypertension, estimated pulmonary arterial systolic pressure is 54 mmHg. Pericardium/Pleural The pericardium appears normal. There is no pericardial effusion. Inferior Vena Cava Not well visualized inferior vena cava with >50% collapse upon inspiration consistent with Empty right atrial pressure, 10 mmHg. Aorta The aortic root size at the sinus of Valsalva is normal. The prox ascending aorta size is normal. The aorta arch size is not well visualized measuring Empty. The abdominal aorta size is not well
[2023-04-23] MEDS: dilTIAZem HCL CD 240 MG CAP.24HR PO (08:38)
[2023-04-23] MEDS: PANTOPRAZOLE 40 MG TABLET PO ×2 (08:38→21:05)
[2023-04-23] MEDS: PARoxetine 20 MG TABLET PO (08:38)
[2023-04-23] MEDS: buPROPion HCL SR (12HR) 100 MG TABCR PO (08:38)
[2023-04-23] MEDS: APIXABAN 2.5 MG TABLET PO ×2 (08:38→21:05)
[2023-04-23] MEDS: ATORVASTATIN 20 MG TABLET PO (08:39)
[2023-04-23] MEDS: CEFDINIR 300 MG CAPSULE PO ×2 (08:39→21:05)
[2023-04-23] MEDS: FINASTERIDE 5 MG TABLET PO (08:39)
[2023-04-23] MEDS: FUROSEMIDE 20 MG TABLET PO (08:39)
[2023-04-23] MEDS: INSULIN ASPART (*BKC) 100 UNITS/ML SUB-Q ×4 (08:39→21:04)
[2023-04-23] MEDS: SOTALOL HCL 80 MG TABLET PO ×2 (08:40→21:05)
[2023-04-23] MEDS: TOLNAFTATE 1% POWDER 45 GM BTL 1 APPLIC TOPICAL ×2 (08:40→21:09)
[2023-04-23] MEDS: LIDOCAINE 5% PATCH 2 PATCH TRANSDERM (08:42)
[2023-04-23 09:08] LABS: Glucose Point of Care 212 mg/dl (65-105)
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
--- NOTE | 2023-04-23 11:34 | PM.IMPN ---
Progress Note: A&P Assessment and Plan (1) Hypercapnic respiratory failure: Code(s): J96.92 - Respiratory failure, unspecified with hypercapnia Status: Acute Assessment and Plan: Appreciate Pulmonary help. Noninvasive ventilator at night. ABG noted. Will likely need this set up prior to discharge. (2) Chronic respiratory failure: Code(s): J96.10 - Chronic respiratory failure, unspecified whether with hypoxia or hypercapnia Status: Acute Assessment and Plan: Chronic. On 5-6 L at home. Currently on 6L. (3) Atrial fibrillation: Code(s): I48.91 - Unspecified atrial fibrillation Status: Acute Assessment and Plan: Currently in sinus rhythm, rate control, on Eliquis at home (4) CKD (chronic kidney disease): Code(s): N18.9 - Chronic kidney disease, unspecified Status: Acute Assessment and Plan: Monitor kidney function electrolytes and urine output. 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 Code(s): E11.9 - Type 2 diabetes mellitus without complications Status: Acute Assessment and Plan: Continue Accu-Cheks and sliding scale insulin -hold Lantus (7) Multiple rib fractures: Qualifiers: Encounter type: subsequent encounter Fracture type: closed Laterality: bilateral Code(s): S22.49XA - Multiple fractures of ribs, unspecified side, initial encounter for closed fracture Status: Acute Assessment and Plan: Pain control (8) Obesity hypoventilation syndrome: Code(s): E66.2 - Morbid (severe) obesity with alveolar hypoventilation Status: Acute Assessment and Plan: BiPAP at night and while asleep during the day (9) DONITA and COPD overlap syndrome: Code(s): G47.33 - Obstructive sleep apnea (adult) (pediatric); J44.9 - Chronic obstructive pulmonary disease, unspecified Status: Acute Assessment and Plan: BiPAP at night Plan DVT prophylaxis: Eliquis Stress ulcer prophylaxis: Protonix Nutrition: Heart healthy diet Code Status: Full code Critical Care Time Spent: 32 minutes Patient can be transferred out of the ICU Discussed with at bedside and in rounds and updated her with patient's condition and plan of care. I answered all questions Due to a high probability of clinically significant, life threatening deterioration, the patient required my highest level of preparedness to intervene emergently and I personally spent this critical care time directly and personally managing the patient. This critical care time included obtaining a history; examining the patient; pulse oximetry; ordering and review of studies; arranging urgent treatment with development of a management plan; evaluation of patient's response to treatment; frequent reassessment; and discussions with other providers. It was exclusive of separately billable procedures and treating other patients and teaching time. Please see Assessment and Plan section and the rest of the note for further information on patient assessment and treatment This dictation may have been done utilizing a voice recognition system. Attempts have been made to correct errors. However, there may be uncorrected grammatical, spelling, and recognitions errors present. Subjective Date/time seen: 04/23/23 11:34 Interval history: No new com
--- NOTE | 2023-04-23 11:55 | PCPTNOTE ---
Attempted to see patient for PT, however patient refused therapy and reported he does not want PT and does not feel he needs PT. Patient reported he was going to tell his doctor he does not want therapy.
[2023-04-23 12:00] LABS: Glucose Point of Care 226 mg/dl (65-105)
[2023-04-23] MEDS: guaiFENesin 12 HR 600 MG TABCR 1200 MG PO ×2 (15:34→21:05)
[2023-04-23 17:23] LABS: Glucose Point of Care 215 mg/dl (65-105)
--- NOTE | 2023-04-23 19:00 | PC.NURSE ---
Pt had critical ABG's this morning. Day shift provider made aware. Pt has reported pain all shift. Pt treated with medication. Pt had echo done. Pt had IV replaced due to pt reporting pain. Pt compliant with care after education on importance of test. Pt has been monitored for any changes in status. Pt was turned up to 7L high flow humidified oxygen. Pt tolerating well.
[2023-04-23] MEDS: TAMSULOSIN HCL 0.4 MG CAPSULE PO (21:05)
[2023-04-23 22:36] LABS: Glucose Point of Care 208 mg/dl (65-105)
[2023-04-24] VITALS (11 sets, daily range): BP systolic 110–157; BP diastolic 56–81; PULSE 64–81; RESP 16–26; TEMP 35.8–36.5; O2SAT 93–97
[2023-04-24] MEDS: oxyCODONE/ACETAMINOPHEN (*CRX) 10-325 MG TABLET 1 TAB PO ×3 (06:19→19:30)
[2023-04-24] MEDS: polyethylene glycoL 3350 17 GM POWD.PACK PO (06:19)
[2023-04-24 07:53] LABS: Glucose Point of Care 229 mg/dl (65-105)
[2023-04-24] MEDS: INSULIN ASPART (*BKC) 100 UNITS/ML SUB-Q ×4 (08:25→21:10)
[2023-04-24] MEDS: dilTIAZem HCL CD 240 MG CAP.24HR PO (08:48)
[2023-04-24] MEDS: SOTALOL HCL 80 MG TABLET PO ×2 (08:48→21:09)
[2023-04-24] MEDS: PARoxetine 20 MG TABLET PO (08:48)
[2023-04-24] MEDS: FUROSEMIDE 20 MG TABLET PO (08:48)
[2023-04-24] MEDS: PANTOPRAZOLE 40 MG TABLET PO ×2 (08:48→21:09)
[2023-04-24] MEDS: TOLNAFTATE 1% POWDER 45 GM BTL 1 APPLIC TOPICAL ×2 (08:49→21:10)
[2023-04-24] MEDS: ATORVASTATIN 20 MG TABLET PO (08:49)
[2023-04-24] MEDS: FINASTERIDE 5 MG TABLET PO (08:49)
[2023-04-24] MEDS: APIXABAN 2.5 MG TABLET PO ×2 (08:49→21:10)
[2023-04-24] MEDS: guaiFENesin 12 HR 600 MG TABCR 1200 MG PO ×2 (08:49→21:09)
[2023-04-24] MEDS: buPROPion HCL SR (12HR) 100 MG TABCR PO (08:49)
[2023-04-24] MEDS: CEFDINIR 300 MG CAPSULE PO ×2 (08:49→21:09)
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
[2023-04-24 09:35] LABS: Anion Gap 6 mmol/L (8-16); Blood Urea Nitrogen 24 mg/dL (9-20); Calcium 8.8 mg/dL (8.4-10.2); Carbon Dioxide 39 mmol/L (22-30); Chloride 93 mmol/L (98-107); Estimated CRCL calculation 76 ml/min; Estimated Glomerular Filt Rate > 60; Glucose 259 mg/dL (65-110); Potassium 4.5 mmol/L (3.4-5.0); Sodium 138 mmol/L (137-145)
--- NOTE | 2023-04-24 11:11 | PM.IMPN ---
Progress Note: A&P Assessment and Plan (1) Hypercapnic respiratory failure: Code(s): J96.92 - Respiratory failure, unspecified with hypercapnia Status: Acute Assessment and Plan: Appreciate Pulmonary help. Noninvasive ventilator at night. ABG noted. Will likely need this set up prior to discharge. (2) Chronic respiratory failure: Code(s): J96.10 - Chronic respiratory failure, unspecified whether with hypoxia or hypercapnia Status: Acute Assessment and Plan: Chronic. On 5-6 L at home. Currently on 6L. (3) Atrial fibrillation: Code(s): I48.91 - Unspecified atrial fibrillation Status: Acute Assessment and Plan: Currently in sinus rhythm, rate control, on Eliquis at home (4) CKD (chronic kidney disease): Code(s): N18.9 - Chronic kidney disease, unspecified Status: Acute Assessment and Plan: Monitor kidney function electrolytes and urine output. 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 Code(s): E11.9 - Type 2 diabetes mellitus without complications Status: Acute Assessment and Plan: Continue Accu-Cheks and sliding scale insulin -hold Lantus (7) Multiple rib fractures: Qualifiers: Encounter type: subsequent encounter Fracture type: closed Laterality: bilateral Code(s): S22.49XA - Multiple fractures of ribs, unspecified side, initial encounter for closed fracture Status: Acute Assessment and Plan: Pain control (8) Obesity hypoventilation syndrome: Code(s): E66.2 - Morbid (severe) obesity with alveolar hypoventilation Status: Acute Assessment and Plan: BiPAP at night and while asleep during the day (9) DONITA and COPD overlap syndrome: Code(s): G47.33 - Obstructive sleep apnea (adult) (pediatric); J44.9 - Chronic obstructive pulmonary disease, unspecified Status: Acute Assessment and Plan: BiPAP at night Plan DVT prophylaxis: Eliquis Stress ulcer prophylaxis: Protonix Nutrition: Heart healthy diet Code Status: Full code Critical Care Time Spent: 32 minutes Patient can be transferred out of the ICU Discussed with at bedside and in rounds and updated her with patient's condition and plan of care. I answered all questions Due to a high probability of clinically significant, life threatening deterioration, the patient required my highest level of preparedness to intervene emergently and I personally spent this critical care time directly and personally managing the patient. This critical care time included obtaining a history; examining the patient; pulse oximetry; ordering and review of studies; arranging urgent treatment with development of a management plan; evaluation of patient's response to treatment; frequent reassessment; and discussions with other providers. It was exclusive of separately billable procedures and treating other patients and teaching time. Please see Assessment and Plan section and the rest of the note for further information on patient assessment and treatment This dictation may have been done utilizing a voice recognition system. Attempts have been made to correct errors. However, there may be uncorrected grammatical, spelling, and recognitions errors present. Subjective Date/time seen: 04/24/23 11:11 Interval history: no new com
[2023-04-24 11:49] LABS: Glucose Point of Care 242 mg/dl (65-105)
[2023-04-24 16:52] LABS: Glucose Point of Care 256 mg/dl (65-105)
[2023-04-24] MEDS: MELATONIN 5 MG TABLET PO (21:09)
[2023-04-24] MEDS: TAMSULOSIN HCL 0.4 MG CAPSULE PO (21:09)
[2023-04-24 21:21] LABS: Glucose Point of Care 228 mg/dl (65-105)
[2023-04-25] VITALS (8 sets, daily range): BP systolic 117–125; BP diastolic 50–60; PULSE 55–68; RESP 16–26; TEMP 35.8–36.3; O2SAT 90–95
[2023-04-25] MEDS: oxyCODONE/ACETAMINOPHEN (*CRX) 10-325 MG TABLET 1 TAB PO ×2 (05:29→20:18)
[2023-04-25 07:52] LABS: Glucose Point of Care 264 mg/dl (65-105)
[2023-04-25] MEDS: guaiFENesin 12 HR 600 MG TABCR 1200 MG PO ×2 (08:37→20:19)
[2023-04-25] MEDS: SOTALOL HCL 80 MG TABLET PO ×2 (08:37→20:19)
[2023-04-25] MEDS: PANTOPRAZOLE 40 MG TABLET PO ×2 (08:37→20:19)
[2023-04-25] MEDS: buPROPion HCL SR (12HR) 100 MG TABCR PO (08:37)
[2023-04-25] MEDS: FUROSEMIDE 20 MG TABLET PO (08:37)
[2023-04-25] MEDS: ATORVASTATIN 20 MG TABLET PO (08:37)
[2023-04-25] MEDS: PARoxetine 20 MG TABLET PO (08:37)
[2023-04-25] MEDS: CEFDINIR 300 MG CAPSULE PO (08:37)
[2023-04-25] MEDS: INSULIN ASPART (*BKC) 100 UNITS/ML SUB-Q ×4 (08:39→20:16)
[2023-04-25] MEDS: APIXABAN 2.5 MG TABLET PO ×2 (08:39→20:19)
[2023-04-25] MEDS: FINASTERIDE 5 MG TABLET PO (08:39)
[2023-04-25] MEDS: dilTIAZem HCL CD 240 MG CAP.24HR PO (08:39)
[2023-04-25] MEDS: TOLNAFTATE 1% POWDER 45 GM BTL 1 APPLIC TOPICAL ×2 (08:40→20:26)
--- NOTE | 2023-04-25 09:46 | PCNWS ---
Weekly nutritional screen. Patient is tolerating current diet with adequate intake, 80-100%. No weight loss reported. No nutritional needs at this time.
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
[2023-04-25 11:52] LABS: Glucose Point of Care 223 mg/dl (65-105)
--- NOTE | 2023-04-25 15:16 | PM.IMPN ---
Progress Note: A&P Assessment and Plan (1) Hypercapnic respiratory failure: Code(s): J96.92 - Respiratory failure, unspecified with hypercapnia Status: Acute Assessment and Plan: Patient tolerating NIV at night. Appreciate Pulmonary help. Plan for repeat study with home unit and possible discharge tomorrow. Discussed with pulmonary. (2) Chronic respiratory failure: Code(s): J96.10 - Chronic respiratory failure, unspecified whether with hypoxia or hypercapnia Status: Acute Assessment and Plan: Chronic resp failure on 5-6 L at home. As baseline. Follow (3) Atrial fibrillation: Code(s): I48.91 - Unspecified atrial fibrillation Status: Acute Assessment and Plan: Probably in/out of AFib. Rate controlled. QTc 414. Continue Eliquis. Continue Diltiazem and Sotalol. (4) CKD (chronic kidney disease): Code(s): N18.9 - Chronic kidney disease, unspecified Status: Acute Assessment and Plan: Renal function stable with BUN 24 and Cr 1.1. yesterday. Follow intermittently. (5) COPD (chronic obstructive pulmonary disease): Code(s): J44.9 - Chronic obstructive pulmonary disease, unspecified Status: Acute Assessment and Plan: Stable. Continue supplemental oxygen, bronchodilators (6) Diabetes: Qualifiers: Diabetes mellitus type: type 2 Diabetes mellitus termite renewal inspector insulin use: with termite renewal inspector use Diabetes mellitus complication status: with neurologic complications Diabetes mellitus complication detail: with polyneuropathy Qualified Code(s): E11.42 - Type 2 diabetes mellitus with diabetic polyneuropathy; Z79.4 - skilled nursing (current) use of insulin Code(s): E11.9 - Type 2 diabetes mellitus without complications Status: Acute Assessment and Plan: A1c 6.7. The patient's blood glucose was reviewed on 04/25 Glucose remains elevated. Continue AccuCheks covering with sliding scale. Hypoglycemia protocol available as needed. Resume lantus. (7) Multiple rib fractures: Qualifiers: Encounter type: subsequent encounter Fracture type: closed Laterality: bilateral Code(s): S22.49XA - Multiple fractures of ribs, unspecified side, initial encounter for closed fracture Status: Acute Assessment and Plan: Imaging showing right acute 4th, 5th and 6th rib fracture. Pain better controlled and no pain with deep breathing. Continue pain control (8) Obesity hypoventilation syndrome: Code(s): E66.2 - Morbid (severe) obesity with alveolar hypoventilation Status: Acute Assessment and Plan: NIV at night and while asleep during the day. As above (9) DONITA and COPD overlap syndrome: Code(s): G47.33 - Obstructive sleep apnea (adult) (pediatric); J44.9 - Chronic obstructive pulmonary disease, unspecified Status: Acute Assessment and Plan: BiPAP at night Plan DVT prophylaxis: Eliquis Nutrition: diab Subjective Date/time seen: 04/25/23 15:17 Interval history: 77yo male with AFib, CKD, COPD, DM and OHS/DONITA here for right sided rib pain after a fall. Assuming care. Chart reviewed. Patient tolerated noninvasive ventilation overnight. No chest pain. No abdominal pain. Shortness of breath is improved. Exam Narrative: AF 97.3 125/60 55 16 95% 6L Gen - NARD Chest - bibasilar inspiratory crackles R>L CV - irrgularly irregular Abd - Soft, morbidly obese, NT - Knowles secured draining clear yelow urine Ext - trace pedal edema Psych - Nml mood and affect Skin - Warm and dry Objective Data Vital Signs Vital Signs: Vital Signs - 24 hr 04/24/23 21:09 04/24/23 20:00 04/24/23 21:47 Temperature Pulse Rate 76 76 80 Respiratory Rate 20 26 H Blood Pressure Pulse Oximetry 95 96 Oxygen Delivery High Flow Nasal Cannula Oxygen Flow Rate 6 Fraction of Inspired Oxygen 45 04/24/23 21:35 04/24/23 20:20 08
--- NOTE | 2023-04-25 15:30 | PCPTNOTE ---
Attempted to see patient for PT, however patient refused. Patient reported he's been going all day and does not want to do anymore, and patient reported he's been sitting up on the edge of the bed all day and does not want to get back up (patient supine in bed upon arrival). Encouraged patient to participate what he can in PT, patient continued to refuse.
[2023-04-25 16:54] LABS: Glucose Point of Care 246 mg/dl (65-105)
[2023-04-25] MEDS: INSULIN GLARGINE (*BKC) 100 UNITS/ML 15 UNITS SUB-Q (17:33)
[2023-04-25] MEDS: TAMSULOSIN HCL 0.4 MG CAPSULE PO (20:18)
[2023-04-25] MEDS: MELATONIN 5 MG TABLET PO (20:19)
[2023-04-25 21:37] LABS: Glucose Point of Care 246 mg/dl (65-105)
[2023-04-26] VITALS (13 sets, daily range): BP systolic 118–148; BP diastolic 55–72; PULSE 64–93; RESP 18–20; TEMP 35.8–36.9; O2SAT 84–98
[2023-04-26] MEDS: oxyCODONE/ACETAMINOPHEN (*CRX) 10-325 MG TABLET 1 TAB PO ×2 (05:49→11:30)
[2023-04-26 06:04] LABS: Alveolar/Arterial O2 Gradient 181.8 mmHg; Base Excess ABG 12.8 mEq/l (+/-2.0); Fractional Inspired Oxygen 45 %; HCO3 ABG 40.3 mEq/l (22.0-26.0); Oxygen Content ABG 15.9 %vol (16.0-22.0); Oxygen Saturation ABG 91.2 % (95.0-100.0); Oxyhemoglobin 91.7 % THb (90.0-100.0); Total Hemoglobin 12.3 g/dL (12.0-18.0); pH ABG 7.398 (7.350-7.450)
[2023-04-26 06:05] LABS: Device OTHER DEVICE; Modified Allen's Test Pass; PCO2 ABG 66.9 mmHg (35.0-45.0); Site Drawn RIGHT RADIAL
[2023-04-26 08:02] LABS: Glucose Point of Care 185 mg/dl (65-105)
[2023-04-26] MEDS: INSULIN GLARGINE (*BKC) 100 UNITS/ML 15 UNITS SUB-Q (09:27)
[2023-04-26] MEDS: guaiFENesin 12 HR 600 MG TABCR 1200 MG PO (09:33)
[2023-04-26] MEDS: ATORVASTATIN 20 MG TABLET PO (09:33)
[2023-04-26] MEDS: SOTALOL HCL 80 MG TABLET PO (09:33)
[2023-04-26] MEDS: dilTIAZem HCL CD 240 MG CAP.24HR PO (09:35)
[2023-04-26] MEDS: PARoxetine 20 MG TABLET PO (09:35)
[2023-04-26] MEDS: APIXABAN 2.5 MG TABLET PO (09:35)
[2023-04-26] MEDS: FINASTERIDE 5 MG TABLET PO (09:35)
[2023-04-26] MEDS: PANTOPRAZOLE 40 MG TABLET PO (09:35)
[2023-04-26] MEDS: FUROSEMIDE 20 MG TABLET PO (09:35)
[2023-04-26] MEDS: buPROPion HCL SR (12HR) 100 MG TABCR PO (09:35)
[2023-04-26] MEDS: LIDOCAINE 5% PATCH 2 PATCH TRANSDERM (09:37)
[2023-04-26] MEDS: TOLNAFTATE 1% POWDER 45 GM BTL 1 APPLIC TOPICAL (11:31)
[2023-04-26 11:54] LABS: Glucose Point of Care 256 mg/dl (65-105)
--- NOTE | 2023-04-26 11:56 | HOMEO2EVAL ---
Evaluation was performed at [facility] Home Oxygen Evaluation RC: Home Oxygen (O2) Evaluation Start: 04/26/23 09:09 Freq: ONCE Status: Active Protocol: RPE Activity Type Activity Date Activity User E-sign Co-sign Detail Recorded Client Recorded Date Recorded By Document 04/26/23 11:30 SILVANA [email or web address] 04/26/23 11:56 SILVANA Document 04/26/23 11:31 SILVANA [email or web address] 04/26/23 11:56 SILVANA Document 04/26/23 11:32 SILVANA [email or web address] 04/26/23 11:56 SILVANA Document 04/26/23 11:33 SILVANA [email or web address] 04/26/23 11:56 SILVANA Document 04/26/23 11:34 SILVANA [email or web address] 04/26/23 11:56 SILVANA Document 04/26/23 11:40 SILVANA [email or web address] 04/26/23 11:56 SILVANA Document 04/26/23 11:45 SILVANA [email or web address] 04/26/23 11:56 SILVANA 04/26/23 04/26/23 04/26/23 11:30 11:31 11:32 Home O2 Evaluation [Oxygen] -Test Phase Resting Resting Resting -Oxygen Delivery Room Air Nasal Cannula Nasal Cannula -Oxygen Flow Rate (L/min) 2 3 [Pulse Oximetry] -Pulse Oximetry (90-100 %) 87 L 84 L 87 L [Pulse Rate] -Pulse Rate (60-100 beats/min) [Evaluation] -Activity Tolerance [Comments] -Home Oxygen Evaluation Comments [Charges] -Treatment Charges O2 Evaluation - Inpatient 04/26/23 04/26/23 04/26/23 11:33 11:34 11:40 Home O2 Evaluation [Oxygen] -Test Phase Resting Resting Exercise -Oxygen Delivery Nasal Cannula Nasal Cannula Nasal Cannula -Oxygen Flow Rate (L/min) 4 5 5 [Pulse Oximetry] -Pulse Oximetry (90-100 %) 88 L 94 92 [Pulse Rate] -Pulse Rate (60-100 beats/min) 86 93 [Evaluation] -Activity Tolerance Fair [Comments] -Home Oxygen Evaluation Comments PT REQUIRES 5 L REST AND ACTIVITY [Charges] -Treatment Charges 04/26/23 11:45 Home O2 Evaluation [Oxygen] -Test Phase Resting -Oxygen Delivery Nasal Cannula -Oxygen Flow Rate (L/min) 5 [Pulse Oximetry] -Pulse Oximetry (90-100 %) 94 [Pulse Rate] -Pulse Rate (60-100 beats/min) 89 [Evaluation] -Activity Tolerance [Comments] -Home Oxygen Evaluation Comments [Charges] -Treatment Charges
[2023-04-26] MEDS: INSULIN ASPART (*BKC) 100 UNITS/ML SUB-Q (12:21)
--- NOTE | 2023-04-26 14:12 | PCRCNOTE ---
HOME O2 EVAL DONE, 5 L REST AND WITH ACTIVITY. 8L WITH ASTRAL HOME NIV. WANDY CONFIRMED THAT PATIENT HAS A HIGH FLOW CONCENTRATOR AT HOME TO ALLOW FOR THE HIGHER O2 NEEDS WITH SLEEP.
--- NOTE | 2023-04-26 15:12 | PM.DS ---
DS: Admitting Diagnosis Discharge Date 04/26/23 Admitting Diagnosis Fall, rib pain DS: Discharge Diagnosis Discharge Diagnosis (1) Hypercapnic respiratory failure: Code(s): J96.92 - Respiratory failure, unspecified with hypercapnia Status: Acute (2) Chronic respiratory failure: Code(s): J96.10 - Chronic respiratory failure, unspecified whether with hypoxia or hypercapnia Status: Acute (3) Atrial fibrillation: Code(s): I48.91 - Unspecified atrial fibrillation Status: Acute (4) CKD (chronic kidney disease): Code(s): N18.9 - Chronic kidney disease, unspecified Status: Acute (5) COPD (chronic obstructive pulmonary disease): Code(s): J44.9 - Chronic obstructive pulmonary disease, unspecified Status: Acute (6) Diabetes: Qualifiers: Diabetes mellitus complication detail: with polyneuropathy Diabetes mellitus complication status: with neurologic complications Diabetes mellitus terminal operations manager insulin use: with terminal operations manager use Diabetes mellitus type: type 2 Qualified Code(s): E11.42 - Type 2 diabetes mellitus with diabetic polyneuropathy; Z79.4 - penitentiary (current) use of insulin Code(s): E11.9 - Type 2 diabetes mellitus without complications Status: Acute (7) Multiple rib fractures: Qualifiers: Encounter type: subsequent encounter Fracture type: closed Laterality: bilateral Code(s): S22.49XA - Multiple fractures of ribs, unspecified side, initial encounter for closed fracture Status: Acute (8) Obesity hypoventilation syndrome: Code(s): E66.2 - Morbid (severe) obesity with alveolar hypoventilation Status: Acute (9) DONITA and COPD overlap syndrome: Code(s): G47.33 - Obstructive sleep apnea (adult) (pediatric); J44.9 - Chronic obstructive pulmonary disease, unspecified Status: Acute DS: Summary Hospital Course Reason for hospitalization: 77yo male with AFib, CKD, COPD, DM and OHS/DONITA here for right sided rib pain after a fall. Please see H&P for details Hospital Course: Patient presents to the emergency room with complaints of rib pain after a fall. Noted be hypoxic. ABG performed showing hypercapnic respiratory failure. Pulmonary was consulted after admission. Patient has chronic respiratory failure on 5-6 L at home at as baseline. Imaging showed acute right 4th, 5th and 6th rib fracture. He was having pain with breathing but this has improved since admission. Echocardiogram showed EF of 65-70%. Diastolic function is indeterminate. He had enlarged and mildly hypokinetic right ventricle with moderate pulmonary hypertension. No evidence of intracardiac shunt. EKG showed normal sinus rhythm with right bundle branch block. His QTC was 414. The right bundle branch block is new compared to EKG from 3 years ago. Urine and blood cultures are negative. CT of the chest, abdomen and pelvis showed patchy bilateral airspace consolidation felt to be atelectasis. He did have an intermediate density 1.4 cm right renal mass which could be a complicated cyst. He also had multiple mild compression deformities in the lower cervical and at thoracic spine likely chronic. Please see report for further details. CT the brain showed no acute findings on admission. Cervical spine CT showed no acute findings. Pulmonary arrange for noninvasive ventilation for the patient at home. Patient required 8 L of oxygen overnight which will require a high-flow concentrator. Home O2 evaluation before discharge showed that he has 5 L at rest and with activity. Patient overall did well was able be discharged home on 04/26/2023. Status at Discharge Cognitive/behavioral status at discharge: stable Time Spent with Patient Time attestation: Total time spent providing and/or coordinating discharge services: 38 minutes Time spent: Greater than 30 minutes Exam Narrative: AF 98.5 118/69 64 18 94% 5L Gen - NARD
[2023-04-26 16:54] LABS: Glucose Point of Care 211 mg/dl (65-105)
== END 2023-04-26 17:30 | disposition home health service (06) | DRG 206 ==
LOC: ANHED 14:51 → ANHICU 17:05 → ANH3MEDSUR 04-20 18:46
PROVIDERS: Chiropractor; Internal Medicine Pulmonary Disease; Nurse Practitioner; Admitting Provider Internal Medicine; Emergency Provider Nurse Practitioner Family; PCP Family Medicine; Visit Provider Internal Medicine
DX: E66.2 Morbid (severe) obesity with alveolar hypoventilation (principal); S22.41XA Multiple fractures of ribs, right side, initial encounter for closed fracture; J96.12 Chronic respiratory failure with hypercapnia; Z68.42 Body mass index [BMI] 45.0-49.9, adult; J96.11 Chronic respiratory failure with hypoxia; J44.9 Chronic obstructive pulmonary disease, unspecified; J98.4 Other disorders of lung; E11.42 Type 2 diabetes mellitus with diabetic polyneuropathy; I48.91 Unspecified atrial fibrillation; E11.22 Type 2 diabetes mellitus with diabetic chronic kidney disease; N18.30 Chronic kidney disease, stage 3 unspecified; I12.9 Hypertensive chronic kidney disease with stage 1 through stage 4 chronic kidney disease, or unspecified chronic kidney disease; E78.5 Hyperlipidemia, unspecified; I25.10 Atherosclerotic heart disease of native coronary artery without angina pectoris; I45.10 Unspecified right bundle-branch block; W05.0XXA Fall from non-moving wheelchair, initial encounter; I71.20 Thoracic aortic aneurysm, without rupture, unspecified; N40.0 Benign prostatic hyperplasia without lower urinary tract symptoms; N28.89 Other specified disorders of kidney and ureter; M15.9 Polyosteoarthritis, unspecified; Z99.81 Dependence on supplemental oxygen; Z79.4 Long term (current) use of insulin; Z79.01 Long term (current) use of anticoagulants; Z86.16 Personal history of COVID-19
CPT/HCPCS: 36415; 36600; 70450; 71045; 71250; 72125; 72128; 72131; 74176; 80048; 80053; 82375; 82805; 82948; 83036; 83050; 83605; 83735; 84100; 84439; 84443; 85025; 87040; 87086; 93005; 94002; 94003; 94618; 94640; 94762; 96365; 96367; 96374; 96375; 97110; 97161; 97165; 97530; 99284; 99285; A9270; C8929; J0456; J0696; J1815; J2060; J2270; J2405

== ENCOUNTER 2024-05-15 07:54 | Emergency (ER) | payer MEDICARE, SELFPAY ==
[2024-05-15] VITALS (10 sets, daily range): BP systolic 111–123; BP diastolic 55–80; PULSE 54–77; RESP 16–23; TEMP 36.1; O2SAT 93–100
--- NOTE | ~2024-05-15 | XR_ITS ---
EXAMINATION: XR chest 1V portable DATE: 05/15/2024 09:17 INDICATION: Cough. Shortness of breath. Dizziness. TECHNIQUE: A single frontal view of the chest was obtained on 2 radiographs. COMPARISON: Chest single view 04/20/2023, chest CT 04/18/2023 FINDINGS: There is chronic elevation of right hemidiaphragm. There is mild atelectasis in the mid and lower lung zones. Calcified pulmonary nodules and calcified hilar lymph nodes are consistent with ol d granulomatous disease. No pleural effusion or pneumothorax. The heart size is normal. There are old healed right rib fractures. There is an old healed fracture of right clavicle. IMPRESSION: 1. Mild atelectasis in the mid and lower lung zones. 2. Chronic elevation of right hemidiaphragm. Reviewed, dictated and finalized at location A.
--- NOTE | 2024-05-15 08:08 | ECG_ITS ---
Test Date: 2024-05-15 08:04:35 Measurements Intervals [place] Rate: 58 P: 37 DE: 175 QRS: 18 QRSD: 127 T: 20 QT: 396 QTc: 392 Interpretive Statements SINUS BRADYCARDIA WITH FREQUENT ECTOPIC PREMATURE COMPLEXES RIGHT BUNDLE BRANCH BLOCK [120+ ms QRS DURATION, UPRIGHT V1, 40+ ms S IN I/aVL/V4/V5/V6] No previous ECG available for comparison Electronically Signed On 05-15-2024 15:11:37 CDT by Randee Hewitt M.D.
[2024-05-15 08:21] LABS: Basophils Absolute Auto 0.1 K/mm3 (0.0-0.1); Basophils Percent Auto 0.6 % (0.2-1.2); Eosinophils Absolute Auto 0.1 K/mm3 (0-0.3); Eosinophils Percent Auto 1.6 % (0-4.4); Hematocrit 41.9 % (42.0-52.0); Hemoglobin 12.9 g/dL (14.0-18.0); Immature Granulocyte Absolute 0.02 K/mm3 (0.00-0.031); Immature Granulocyte Percent A 0.2 % (0-0.5); Lymphocytes Absolute Auto 1.66 K/mm3 (0.9-3.2); Mean Corpuscular HGB Conc 30.8 g/dl (32-36); Mean Corpuscular Hemoglobin 29.5 pg (26-34); Mean Corpuscular Volume 95.9 fl (80-100); Mean Platelet Volume 9.8 fl (7.4-10.4); Monocytes Absolute Auto 0.7 K/mm3 (0.1-0.6); Monocytes Percent Auto 8.4 % (2.6-8.5); Neutrophils Absolute Auto 6.1 K/mm3 (1.3-6.7); Neutrophils Percent Auto 70.2 % (45.5-73.1); Platelet Count Result 258 k/mm3 (150-375); Red Blood Count 4.37 M/mm3 (4.6-6.20); Red Cell Distribution Width 14.9 % (11.5-14.5); White Blood Count 8.7 K/mm3 (4.5-10.0)
[2024-05-15] MEDS: IPRATROPIUM 0.5 MG/ALBUTEROL SULFATE 2.5 MG AMPUL.NEB 3 ML INHALATION ×3 (08:21→08:22)
[2024-05-15 08:34] LABS: INR 1.1; Partial Thromboplastin Time 31.8 Seconds (22.3-36.8); Prothrombin Time 14.1 Seconds (11.1-14.7)
[2024-05-15 08:37] LABS: Alveolar/Arterial O2 Gradient 155.1 mmHg; Base Excess ABG 1.8 mEq/l (+/-2.0); Fractional Inspired Oxygen 44 %; HCO3 ABG 28.5 mEq/l (22.0-26.0); Oxygen Content ABG 18.1 %vol (16.0-22.0); Oxyhemoglobin 96.5 % THb (90.0-100.0); PCO2 ABG 53.5 mmHg (35.0-45.0); PO2 ABG 97.6 mmHg (80.0-100.0); PO2 FiO2 Ratio Arterial Blood 2.22 %; Total Hemoglobin 13.3 g/dL (12.0-18.0); pH ABG 7.345 (7.350-7.450)
[2024-05-15 08:38] LABS: Device NASAL CANNULA; Modified Allen's Test Pass; Site Drawn LEFT RADIAL
[2024-05-15 08:43] LABS: Alanine Aminotransferase 17 U/L (6-50); Albumin Level 4.2 g/dL (3.5-5.1); Alkaline Phosphatase 106 U/L (38-126); Anion Gap 12 mmol/L (4-12); Aspartate Amino Transferase 22 U/L (17-59); Bilirubin,Total 0.5 mg/dL (0.2-1.3); Blood Urea Nitrogen 21 mg/dL (9-20); Calcium 9.2 mg/dL (8.4-10.2); Carbon Dioxide 29 mmol/L (22-30); Chloride 100 mmol/L (98-107); Estimated CRCL calculation 69 ml/min; Estimated Glomerular Filt Rate 59; Glucose 170 mg/dL (65-110); Potassium 4.7 mmol/L (3.4-5.0); Sodium 141 mmol/L (137-145)
[2024-05-15 08:51] LABS: NT Pro B Type Natriuretic Pept 347 pg/mL (19.9-100)
[2024-05-15 08:57] LABS: Influenza A QL RT-PCR Negative (Negative); Influenza B QL RT-PCR Negative (Negative); RSV RNA, RT-PCR Negative (Negative); SARS-CoV-2 RNA PCR Negative (Negative)
--- NOTE | 2024-05-15 09:13 | ED.SOB ---
HPI - SOB/Dyspnea General Chief Complaint: Shortness of Breath/Dyspnea Stated Complaint: low 02 sats Time Seen by Provider: 05/15/24 07:57 History of Present Illness HPI Narrative: Patient is a 78-year-old male who presents ER from his PCPs office for shortness of breath. Patient reports over last 3 days he has had new productive cough of green sputum. He has been having exertional dyspnea with near syncope. He wears 6 L of oxygen at all times and wears 8 L when he is sleeping. No chest pain or chest pressure. No reported fevers. He has been on Mucinex for few days which is helped him get phlegm out of his chest. Related Data Home Medications Medication Instructions Recorded Confirmed lamotrigine 50 mg disintegrating 25 mg PO DAILY 03/31/24 05/15/24 tablet Allergies Allergy/AdvReac Type Severity Reaction Status Date / Time amiodarone Allergy Unknown Swelling Verified 05/15/24 07:26 iodine Allergy Unknown Rash Verified 05/15/24 07:26 naproxen Allergy Unknown Hives Verified 05/15/24 07:26 Contrast Media Allergy Unknown Unknown Uncoded 05/15/24 07:26 shell fish Allergy Unknown urticaria Uncoded 05/15/24 07:26 Review of Systems Review of Systems: All systems reviewed & are unremarkable except as noted in HPI and below Constitutional: Constitutional: Denies chills, Reports fatigue and Denies fever(s) ENT: Reports system reviewed and no additional complaints, except as documented Cardiovascular: Cardiovascular: Reports no additional cardiovascular complaints Respiratory: Respiratory: Reports chest congestion, Reports cough, Reports dyspnea and Denies wheezing Gastrointestinal: Gastrointestinal: Reports no additional gastrointestinal complaints Integumentary/Breasts: Skin/Breast: Reports system reviewed and no additional complaints, except as docu [facility] Past Medical History Medical History Atrial fibrillation Body mass index (BMI) of 40.0-44.9 in adult (01/21/19) BPH (benign prostatic hyperplasia) Cataract (lens) fragments in eye following cataract surgery, unspecified eye Counseling on health promotion and disease prevention Diabetes Elevated antinuclear antibody (NATALIE) level Generalized osteoarthritis of multiple sites Hx of nephrolithotomy with removal of calculi Inflammatory arthropathy Kidney stone Obesity hypoventilation syndrome Positive NATALIE (antinuclear antibody) (02/2018) Restrictive lung disease secondary to obesity Vitiligo Surgical History Surgical History Cataract extraction status History of back surgery History of cardiac radiofrequency ablation (RFA) Family History Family History Father Patient's father is Sibling Patient's sister is Mother Family history of Alzheimer's disease Social History Social History Social History: He is . He has 2 sons. The patient is retired from [employer]. 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 The patient stated that he never smoked tobacco but used to smoke marijuana many years ago over 12 years ago. His is the durable power commercial real estate attorney for healthcare. Code status full code Smoking status: Never smoker Second hand tobacco smoke exposure: No Alcohol intake: never Substance use: never Substance use type: does not use Do You Feel Safe in your Home?: Yes Lack of Transportation: No Lack of Food: Never True Current Housing: I Have Housing Concerned About Future Housing: No Difficulty Paying Gas/Electric Bills: No Difficulty Paying for Meds: No Currently Unemployed: No Education: Grade School Difficulty w/ Childcare or Family Care: No Living arrangements: with family Occupation/Education: retired Gender identity (if verbalized by the patient): Male Sexual Or
[2024-05-15] MEDS: SODIUM CHLORIDE 0.9% IV 500 ML 999 ML IV CONT (11:06)
[2024-05-15 11:19] LABS: Reflex Lactic Acid Yes or No Add Lactic
== END 2024-05-15 12:26 | disposition home or self-care (01) ==
PROVIDERS: Emergency Provider Emergency Medicine; PCP Family Medicine
DX: J44.1 Chronic obstructive pulmonary disease with (acute) exacerbation (principal); Z20.822 Contact with and (suspected) exposure to COVID-19; I48.91 Unspecified atrial fibrillation; E11.9 Type 2 diabetes mellitus without complications; E66.2 Morbid (severe) obesity with alveolar hypoventilation; Z68.43 Body mass index [BMI] 50.0-59.9, adult; N40.0 Benign prostatic hyperplasia without lower urinary tract symptoms; M19.90 Unspecified osteoarthritis, unspecified site; H59.029 Cataract (lens) fragments in eye following cataract surgery, unspecified eye; Z99.81 Dependence on supplemental oxygen; Z87.442 Personal history of urinary calculi; Z98.49 Cataract extraction status, unspecified eye; Z79.84 Long term (current) use of oral hypoglycemic drugs; Z79.4 Long term (current) use of insulin; Z79.899 Other long term (current) drug therapy; Z79.01 Long term (current) use of anticoagulants
CPT/HCPCS: 36415; 36600; 71045; 80053; 82805; 83605; 83880; 85025; 85610; 85730; 87637; 93005; 94640; 96360; 99284; J7040

== ENCOUNTER 2024-05-24 09:34 | Inpatient (IN) | payer MEDICARE, SELFPAY ==
[2024-05-24] VITALS (27 sets, daily range): BP systolic 105–138; BP diastolic 48–126; PULSE 69–86; RESP 15–28; TEMP 36.3–36.5; O2SAT 91–100; BMI 46.7
--- NOTE | ~2024-05-24 | XR_ITS ---
XR chest 2V 05/24/2024 10:13 Indication: Shortness of breath and wheezing Procedure: 2 view chest Comparison: Comparison to multiple prior studies sequentially, with oldest reviewed study dated 11/13. Findings: Bibasilar airspace disease. Chronic right pleural thickening/pleural effusion. Stable cardi omediastinal silhouette. Impression: 1: Bibasilar airspace disease may represent atelectasis/scarring or pneumonia. 2: Chronic right pleural effusion/pleural thickening. Reviewed, dictated and finalized at location B. Impression: 1: Bibasilar airspace disease may represent atelectasis/scarring or pneumonia. 2: Chronic right pleural effusion/pleural thickening.
--- NOTE | ~2024-05-24 | XR_ITS ---
Portable chest x-ray Comparison: 05/24/2024 Clinical History: Shortness of breath Findings: Small right pleural effusion probably present. Possible right basilar pleural plaque. Ther e is probable minimal central congestive change. Cardiomediastinal silhouette is stable. Bones and s oft tissues are unremarkable. Impression: No significant interval change. Stable small right pleural effusion and possible right basilar calcif ied pleural plaque or scarring. Reviewed, dictated and finalized at location M. Impression: No significant interval change. Stable small right pleural effusion and possibl e right basilar calcified pleural plaque or scarring.
--- NOTE | 2024-05-24 09:38 | ECG_ITS ---
Test Date: 2024-05-24 09:40:50 Measurements Intervals [place] Rate: 73 P: -3 DE: 142 QRS: 28 QRSD: 142 T: 33 QT: 400 QTc: 444 Interpretive Statements SINUS RHYTHM WITH OCCASIONAL ECTOPIC PREMATURE COMPLEXES INDETERMINATE AXIS RIGHT BUNDLE BRANCH BLOCK [120+ ms QRS DURATION, UPRIGHT V1, 40+ ms S IN I/aVL/V4/V5/V6] Compared to ECG 05/15/2024 08:04:35 Indeterminate axis now present Sinus bradycardia no longer present Electronically Signed On 05-24-2024 14:45:34 CDT by Raphael Cates M.D.
[2024-05-24 09:55] LABS: Basophils Percent Auto 0.3 % (0.2-1.2); Eosinophils Absolute Auto 0.2 K/mm3 (0-0.3); Eosinophils Percent Auto 1.5 % (0-4.4); Hematocrit 46.3 % (42.0-52.0); Hemoglobin 14.3 g/dL (14.0-18.0); Immature Granulocyte Absolute 0.06 K/mm3 (0.00-0.031); Immature Granulocyte Percent A 0.6 % (0-0.5); Lymphocytes Absolute Auto 1.67 K/mm3 (0.9-3.2); Lymphocytes Percent Auto 16.6 % (18.3-44.2); Mean Corpuscular HGB Conc 30.9 g/dl (32-36); Mean Corpuscular Hemoglobin 29.4 pg (26-34); Mean Corpuscular Volume 95.3 fl (80-100); Mean Platelet Volume 9.5 fl (7.4-10.4); Monocytes Absolute Auto 0.8 K/mm3 (0.1-0.6); Monocytes Percent Auto 7.7 % (2.6-8.5); Neutrophils Absolute Auto 7.4 K/mm3 (1.3-6.7); Neutrophils Percent Auto 73.3 % (45.5-73.1); Platelet Count Result 282 k/mm3 (150-375); Red Blood Count 4.86 M/mm3 (4.6-6.20); Red Cell Distribution Width 15.3 % (11.5-14.5); White Blood Count 10.1 K/mm3 (4.5-10.0)
[2024-05-24 10:05] LABS: Alanine Aminotransferase 24 U/L (6-50); Albumin Level 4.1 g/dL (3.5-5.1); Alkaline Phosphatase 99 U/L (38-126); Anion Gap 8 mmol/L (4-12); Aspartate Amino Transferase 27 U/L (17-59); Bilirubin,Total 0.9 mg/dL (0.2-1.3); Blood Urea Nitrogen 27 mg/dL (9-20); Calcium 9.4 mg/dL (8.4-10.2); Carbon Dioxide 37 mmol/L (22-30); Chloride 96 mmol/L (98-107); Estimated CRCL calculation 74 ml/min; Estimated Glomerular Filt Rate > 60; Glucose 178 mg/dL (65-110); Potassium 3.7 mmol/L (3.4-5.0); Sodium 141 mmol/L (137-145)
[2024-05-24] MEDS: IPRATROPIUM 0.5 MG/ALBUTEROL SULFATE 2.5 MG AMPUL.NEB 3 ML INHALATION ×3 (10:51→21:25)
--- NOTE | 2024-05-24 11:23 | ED.SOB ---
HPI - SOB/Dyspnea General Chief Complaint: Shortness of Breath/Dyspnea Stated Complaint: shortness of breath Time Seen by Provider: 05/24/24 09:37 History of Present Illness HPI Narrative: Patient is a 78-year-old male who presents ER with shortness of breath. He was seen here 1 week ago and diagnosed with COPD exacerbation. He has been on steroids as well as doxycycline. He continues to have productive cough and shortness of breath. He is chronically dependent on 6 L of O2. No chest pain or pressure. Reports his cough is more red than it had been. Related Data Home Medications Medication Instructions Recorded Confirmed apixaban 5 mg tablet (Eliquis) 2.5 mg PO BID 05/24/24 05/24/24 atorvastatin 20 mg tablet 20 mg PO DAILY 05/24/24 05/24/24 bupropion HCl 100 mg tablet,12 hr 100 mg PO DAILY 05/24/24 05/24/24 sustained-release insulin glargine 100 unit/mL (3 60 unit subcut QAM 05/24/24 05/24/24 mL) subcutaneous pen (Lantus Solostar U-100 Insulin) omeprazole 40 mg capsule,delayed 40 mg PO DAILY 05/24/24 05/24/24 release paroxetine HCl 20 mg tablet 20 mg PO DAILY 05/24/24 05/24/24 sotalol 80 mg tablet 80 mg PO BID 05/24/24 05/24/24 tamsulosin 0.4 mg capsule 0.4 mg PO QHS 05/24/24 05/24/24 Allergies Allergy/AdvReac Type Severity Reaction Status Date / Time amiodarone Allergy Unknown Swelling Verified 05/24/24 09:49 iodine Allergy Unknown Rash Verified 05/24/24 09:49 naproxen Allergy Unknown Hives Verified 05/24/24 09:49 Contrast Media Allergy Unknown Unknown Uncoded 05/24/24 09:49 shell fish Allergy Unknown urticaria Uncoded 05/24/24 09:49 Review of Systems Review of Systems: All systems reviewed & are unremarkable except as noted in HPI and below Constitutional: Constitutional: Denies chills, Reports fatigue and Denies fever(s) ENT: Reports system reviewed and no additional complaints, except as documented Cardiovascular: Cardiovascular: Reports no additional cardiovascular complaints Respiratory: Respiratory: Reports cough, Reports dyspnea and Denies wheezing Gastrointestinal: Gastrointestinal: Reports no additional gastrointestinal complaints Musculoskeletal: Musculoskeletal: Reports no additional musculoskeletal complaints [facility] Past Medical History Medical History (Updated 05/24/24 @ 18:02 by Reji Harrison MD) Benign prostatic hyperplasia Chronic anticoagulation Chronic respiratory failure with hypoxia, on home oxygen therapy Depression Diastolic dysfunction Elevated antinuclear antibody (NATALIE) level Generalized osteoarthritis of multiple sites Inflammatory arthropathy Insulin dependent type 2 diabetes mellitus Kidney stone Obesity hypoventilation syndrome Obstructive sleep apnea Paroxysmal atrial fibrillation Restrictive lung disease secondary to obesity Vitiligo Surgical History Surgical History (Updated 05/24/24 @ 13:37 by Steph Dykes PA-C) History of back surgery History of cardiac radiofrequency ablation (RFA) History of cataract extraction with lens replacement Family History Family History Father Patient's father is Sibling Patient's sister is Mother Family history of Alzheimer's disease Social History Social History (Updated 05/24/24 @ 13:38 by Steph Dykes PA-C) Social History: Surrogate medical decision maker: Code status: Full code. Smoking status: Never smoker Second hand tobacco smoke exposure: No Alcohol intake: never Substance use: never Substance use type: does not use Do You Feel Safe in your Home?: Yes Lack of Transportation: No Lack of Food: Never True Current Housing: I Have Housing Concerned About Future Housing: No Difficulty Paying Gas/Electric Bills: No Difficulty Paying for Meds: No Currently Unemployed: No Education: Grade School Difficulty w/ Childcare or Family Care: No Living arrangem
[2024-05-24] MEDS: methylPREDNISolone SOD SUCC 125 MG VIAL 60 MG IV PUSH ×2 (12:58→17:55)
--- NOTE | 2024-05-24 13:23 | PM.IMHP ---
H&P: HPI History of Present Illness Date/Time: 05/24/24 13:25 Chief Complaint: Shortness of breath. Narrative: This is a 78-year-old male with chronic respiratory failure on home oxygen, obesity hypoventilation syndrome, obstructive sleep apnea, restrictive lung disease, morbid obesity, insulin-dependent type 2 diabetes mellitus, paroxysmal atrial fibrillation on chronic anticoagulation, chronic kidney hyperlipidemia, benign prostatic hyperplasia, and depression who presented to the emergency department via private vehicle for evaluation of shortness of breath. The patient provides the following history. He is on 6 L nasal cannula during the day and 8 L at nighttime. At baseline his breathing is not good and limits his daily activities. He spends the majority of his time in a recliner and admits that he can only ambulate a few feet with a walker. Several weeks ago his had bronchitis and he developed a productive cough and increasing shortness of breath not long thereafter. He was seen in the ED on 05/15/2024 for the symptoms, was diagnosed with a COPD exacerbation, and was discharged home on doxycycline and prednisone. He is not feeling any better and continues to have cough productive of green phlegm, shortness of breath, and generalized weakness. He denies fever, headache, chest pain, pleuritic pain, focal weakness, nausea, diarrhea, dysuria, edema, and calf pain. In the ED: He was afebrile on arrival with stable blood pressures. SpO2 has been in the mid to upper 90s on his 6 L. labs are significant for WBC count of 10.1, hemoglobin 14.3, carbon dioxide 37, BUN 27, creatinine 1.10, glucose 178. Chest x-ray showed bibasilar airspace disease which may represent atelectasis/scarring or pneumonia and chronic right pleural effusion/pleural thickening. He received a DuoNeb and methylprednisolone is being admitted in this setting for further treatment and evaluation. Review of Systems Review of Systems: 12 systems were reviewed and are negative except for as per HPI. COUNTS INCLUDE 234 BEDS AT THE [facility] Past Medical History Medical History Benign prostatic hyperplasia Chronic anticoagulation Chronic respiratory failure with hypoxia, on home oxygen therapy Depression Diastolic dysfunction Elevated antinuclear antibody (NATALIE) level Generalized osteoarthritis of multiple sites Inflammatory arthropathy Insulin dependent type 2 diabetes mellitus Kidney stone Obesity hypoventilation syndrome Obstructive sleep apnea Paroxysmal atrial fibrillation Restrictive lung disease secondary to obesity Vitiligo Surgical History Surgical History (Updated 05/24/24 @ 13:37 by Steph Dykes PA-C) History of back surgery History of cardiac radiofrequency ablation (RFA) History of cataract extraction with lens replacement Family History Family History Father Patient's father is Sibling Patient's sister is Mother Family history of Alzheimer's disease Social History Social History (Updated 05/24/24 @ 20:13 by Steph Dykes PA-C) Social History: Surrogate medical decision maker: Yarely Fox. Code status: Full code. Smoking status: Never smoker Second hand tobacco smoke exposure: No Alcohol intake: never Substance use: never Substance use type: does not use Do You Feel Safe in your Home?: Yes Lack of Transportation: No Lack of Food: Never True Current Housing: I Have Housing Concerned About Future Housing: No Difficulty Paying Gas/Electric Bills: No Difficulty Paying for Meds: No Currently Unemployed: No Education: Grade School Difficulty w/ Childcare or Family Care: No Living arrangements: with family Additional living arrangements comments: Lives with spouse in [place]. They have 2 sons. Occupation/Education: retired Additional occupation/education comm
--- NOTE | 2024-05-24 13:35 | ADMGEN ---
This patient, Jake Martin, was admitted to Medical Room 341-01. Patient/family oriented to hospital policies and general routines including ID bracelet, bed and alarms, visiting hours, pain management, procedures, bathroom and other care routines, personal items, smoking policy, room service/diet, and visiting hours. Information on how to activate the Rapid Response Team has been discussed. Patient/Family are encouraged to report perceived risks to care and to ask questions if they do not understand what they are told or what they should do.
[2024-05-24 15:09] LABS: Influenza A QL RT-PCR Negative (Negative); Influenza B QL RT-PCR Negative (Negative); RSV RNA, RT-PCR Negative (Negative); SARS-CoV-2 RNA PCR Negative (Negative)
[2024-05-24 15:43] LABS: MRSA (PCR) NOT DETECTED (NOT DETECTE)
[2024-05-24 16:28] LABS: CRP 1.9 mg/dL (<1.0)
[2024-05-24 16:35] LABS: Procalcitonin 0.1 ng/mL
[2024-05-24 17:23] LABS: Glucose Point of Care 225 mg/dl (65-105)
[2024-05-24] MEDS: INSULIN ASPART (*BKC) 100 UNITS/ML SUB-Q ×2 (17:56→20:58)
[2024-05-24 19:52] LABS: Glucose Point of Care 291 mg/dl (65-105)
[2024-05-24] MEDS: TAMSULOSIN HCL 0.4 MG CAPSULE PO (20:57)
[2024-05-24] MEDS: DOXYCYCLINE HYCLATE 100 MG TABLET PO (20:57)
[2024-05-24] MEDS: guaiFENesin 12 HR 600 MG TABCR 1200 MG PO (20:57)
[2024-05-24] MEDS: SOTALOL HCL 80 MG TABLET PO (20:57)
[2024-05-24] MEDS: APIXABAN 2.5 MG TABLET PO (20:57)
[2024-05-24] MEDS: oxyCODONE/ACETAMINOPHEN (*CRX) 5-325 MG TABLET 1 TABLET PO (21:05)
[2024-05-25] VITALS (12 sets, daily range): BP systolic 112–137; BP diastolic 60–69; PULSE 60–72; RESP 20–22; TEMP 36.3–36.6; O2SAT 93–97
--- NOTE | 2024-05-25 04:50 | PCRCNOTE ---
Window of time for administration has passed. See next scheduled administration.
[2024-05-25 05:56] LABS: Hematocrit 41.4 % (42.0-52.0); Hemoglobin 12.9 g/dL (14.0-18.0); Mean Corpuscular HGB Conc 31.2 g/dl (32-36); Mean Corpuscular Hemoglobin 29.9 pg (26-34); Mean Corpuscular Volume 95.8 fl (80-100); Mean Platelet Volume 9.9 fl (7.4-10.4); Platelet Count Result 257 k/mm3 (150-375); Red Blood Count 4.32 M/mm3 (4.6-6.20); Red Cell Distribution Width 14.7 % (11.5-14.5); White Blood Count 9.5 K/mm3 (4.5-10.0)
[2024-05-25 06:07] LABS: Anion Gap 11 mmol/L (4-12); Blood Urea Nitrogen 30 mg/dL (9-20); Calcium 8.8 mg/dL (8.4-10.2); Carbon Dioxide 33 mmol/L (22-30); Chloride 96 mmol/L (98-107); Estimated CRCL calculation 81 ml/min; Estimated Glomerular Filt Rate > 60; Glucose 241 mg/dL (65-110); Magnesium 1.8 mg/dL (1.6-2.3); Potassium 3.9 mmol/L (3.4-5.0); Sodium 140 mmol/L (137-145)
[2024-05-25] MEDS: IPRATROPIUM 0.5 MG/ALBUTEROL SULFATE 2.5 MG AMPUL.NEB 3 ML INHALATION ×3 (07:14→19:47)
[2024-05-25 08:24] LABS: Glucose Point of Care 199 mg/dl (65-105)
[2024-05-25] MEDS: oxyCODONE/ACETAMINOPHEN (*CRX) 5-325 MG TABLET 1 TABLET PO ×2 (08:39→20:25)
[2024-05-25] MEDS: DOXYCYCLINE HYCLATE 100 MG TABLET PO ×2 (08:42→20:18)
[2024-05-25] MEDS: PANTOPRAZOLE 40 MG TABLET PO ×2 (08:42→20:19)
[2024-05-25] MEDS: metFORMIN HCL 500 MG TABLET PO ×2 (08:42→17:25)
[2024-05-25] MEDS: FUROSEMIDE 20 MG TABLET PO (08:42)
[2024-05-25] MEDS: buPROPion HCL SR (12HR) 100 MG TABCR PO (08:42)
[2024-05-25] MEDS: dilTIAZem HCL CD 240 MG CAP.24HR BY MOUTH (08:43)
[2024-05-25] MEDS: PARoxetine 20 MG TABLET PO (08:43)
[2024-05-25] MEDS: FINASTERIDE 5 MG TABLET BY MOUTH (08:43)
[2024-05-25] MEDS: ATORVASTATIN 20 MG TABLET PO (08:43)
[2024-05-25] MEDS: SOTALOL HCL 80 MG TABLET PO ×2 (08:43→20:18)
[2024-05-25] MEDS: APIXABAN 2.5 MG TABLET PO ×2 (08:43→20:18)
[2024-05-25] MEDS: guaiFENesin 12 HR 600 MG TABCR 1200 MG PO ×2 (08:43→20:19)
[2024-05-25] MEDS: INSULIN GLARGINE (*BKC) 100 UNITS/ML 60 UNITS SUB-Q (08:54)
[2024-05-25 12:02] LABS: Glucose Point of Care 278 mg/dl (65-105)
[2024-05-25] MEDS: INSULIN ASPART (*BKC) 100 UNITS/ML SUB-Q ×3 (12:15→20:20)
--- NOTE | 2024-05-25 15:00 | PM.IMPN ---
Progress Note: A&P Assessment and Plan (1) Pneumonia: Qualifiers: Laterality: bilateral Pneumonia type: due to unspecified organism Code(s): J18.9 - Pneumonia, unspecified organism Status: Acute Assessment and Plan: CXR 05/24: Impression: 1: Bibasilar airspace disease may represent atelectasis/scarring or pneumonia. 2: Chronic right pleural effusion/pleural thickening. - Sputum culture collected. - Currently on Ceftriaxone and doxycyclline. - Currently on 6L/NC per home dose. - Continue abx as we follow cultures. (2) Chronic respiratory failure with hypoxia, on home oxygen therapy: Code(s): J96.11 - Chronic respiratory failure with hypoxia; Z99.81 - Dependence on supplemental oxygen Status: Acute Assessment and Plan: - Acute on chronic. - States has nebulizer machine and meds but doesn't use it because it makes him cough. - Encourage with nebulized treatment. - Continue bronchodilators. - Currently on 6L/NC per home dose. (3) Restrictive lung disease secondary to obesity: Code(s): J98.4 - Other disorders of lung; E66.9 - Obesity, unspecified Status: Acute Assessment and Plan: - Mgt as above. - Encouraged with lifestyle modification to lose weight. (4) Obstructive sleep apnea: Code(s): G47.33 - Obstructive sleep apnea (adult) (pediatric) Status: Acute Assessment and Plan: - CPAP bedtime. (5) Diastolic dysfunction: Code(s): I51.89 - Other ill-defined heart diseases Status: Acute Assessment and Plan: - Appears stable. - Continue lasix PO diuresis. (6) Insulin dependent type 2 diabetes mellitus: Code(s): E11.9 - Type 2 diabetes mellitus without complications; Z79.4 - termite inspector (current) use of insulin Status: Acute Assessment and Plan: - Blood glucose levels elevated possibly due to steroids. - Lantus dose slightly increased. - Continue to adjust insulin for optimal BGL level. (7) Paroxysmal atrial fibrillation: Code(s): I48.0 - Paroxysmal atrial fibrillation Status: Acute Assessment and Plan: - Rate well controlled. - Continue Sotalol and apixaban. Time Spent With Patient Time with patient: 25 - 35 minutes Subjective Date/time seen: 05/25/24 11:00 Interval history: Patient presented to the ER with reports of increased SOB within the last couple of day. He was seen in the ED on 05/15/2024 for the naomie symptoms and was diagnosed with a COPD exacerbation, discharged home on doxycycline and prednisone. He is not feeling any better and continues to have cough productive of green phlegm, shortness of breath, and generalized weakness. Patient uses 6L/NC O2/NC at baseline and does not perform much activities at home, sits on recliner for the most part. Currently patient on bedrest and denies any acute distress. Still has cough episodes of cough with some episodes of greenish sputum. Review of Systems Review of Systems: 12 systems were reviewed and are negative except for as per HPI. Exam Narrative: General: Chronically ill-appearing gentleman, laying in bed in no acute distress. HEENT: PERRL, EOMI. Sclera anicteric. Oral mucosa moist. Neck: Supple. Respiratory: Lung sounds diminished bilaterally. Cardiovascular: Regular rate and rhythm, no murmurs. Gastrointestinal: Abdomen is soft, obese, nontender, and nondistended with positive bowel sounds. Skin: Warm and dry. Extremities: No cyanosis, clubbing, or significant edema. Radial and pedal pulses intact. Neurological: Alert. Cranial nerves II-XII are grossly intact. No gross focal deficits noted. Psychiatric: Cooperative with appropriate mood and affect. Objective Data Vital Signs Vital Signs: Vital Signs - 24 hr 05/24/24 20:36 05/24/24 20:57 05/25/24 06:00 Temperature 97.7 F 97.7 F Pulse Rate 71 85 64 Respiratory Rate 18 20 Blood Pressure 106/48 L 120/63 Pulse Oximetry 94 96 Oxygen De
[2024-05-25 17:10] LABS: Glucose Point of Care 223 mg/dl (65-105)
[2024-05-25] MEDS: guaiFENesin/DEXTROMETHORPHAN 10 ML UDC PO (17:43)
[2024-05-25 20:10] LABS: Glucose Point of Care 240 mg/dl (65-105)
[2024-05-25] MEDS: TAMSULOSIN HCL 0.4 MG CAPSULE PO (20:18)
[2024-05-26] VITALS (15 sets, daily range): BP systolic 100–107; BP diastolic 46–48; PULSE 56–87; RESP 18–22; TEMP 36.2–36.4; O2SAT 95–100
[2024-05-26] MEDS: IPRATROPIUM 0.5 MG/ALBUTEROL SULFATE 2.5 MG AMPUL.NEB 3 ML INHALATION ×3 (03:13→20:43)
[2024-05-26 08:32] LABS: Glucose Point of Care 88 mg/dl (65-105)
[2024-05-26] MEDS: FUROSEMIDE 20 MG TABLET PO (09:14)
[2024-05-26] MEDS: guaiFENesin 12 HR 600 MG TABCR 1200 MG PO ×2 (09:14→20:20)
[2024-05-26] MEDS: metFORMIN HCL 500 MG TABLET PO ×2 (09:14→17:42)
[2024-05-26] MEDS: SOTALOL HCL 80 MG TABLET PO ×2 (09:14→20:20)
[2024-05-26] MEDS: dilTIAZem HCL CD 240 MG CAP.24HR BY MOUTH (09:14)
[2024-05-26] MEDS: buPROPion HCL SR (12HR) 100 MG TABCR PO (09:15)
[2024-05-26] MEDS: DOXYCYCLINE HYCLATE 100 MG TABLET PO ×2 (09:15→20:20)
[2024-05-26] MEDS: PARoxetine 20 MG TABLET PO (09:15)
[2024-05-26] MEDS: PANTOPRAZOLE 40 MG TABLET PO ×2 (09:15→20:20)
[2024-05-26] MEDS: FINASTERIDE 5 MG TABLET BY MOUTH (09:16)
[2024-05-26] MEDS: ATORVASTATIN 20 MG TABLET PO (09:16)
[2024-05-26] MEDS: BENZONATATE 100 MG CAPSULE PO ×3 (09:16→17:43)
[2024-05-26] MEDS: APIXABAN 2.5 MG TABLET PO ×2 (09:16→20:21)
[2024-05-26] MEDS: INSULIN GLARGINE (*BKC) 100 UNITS/ML 65 UNITS SUB-Q (09:18)
--- NOTE | 2024-05-26 09:59 | PCRCNOTE ---
Window of time for administration has passed. See next scheduled administration.
--- NOTE | 2024-05-26 11:55 | PM.IMPN ---
Progress Note: A&P Assessment and Plan (1) Pneumonia: Qualifiers: Laterality: bilateral Pneumonia type: due to unspecified organism Code(s): J18.9 - Pneumonia, unspecified organism Status: Acute Assessment and Plan: CXR 05/24: Impression: 1: Bibasilar airspace disease may represent atelectasis/scarring or pneumonia. 2: Chronic right pleural effusion/pleural thickening. - Sputum culture pending. - Currently on Ceftriaxone and doxycycline. - Currently on 6L/NC per home dose. - Continue abx as we follow cultures. - Repeat CXR with patient reporting worsening cough. - Consider pulmonary consult if no improvement in AM. (2) Chronic respiratory failure with hypoxia, on home oxygen therapy: Code(s): J96.11 - Chronic respiratory failure with hypoxia; Z99.81 - Dependence on supplemental oxygen Status: Acute Assessment and Plan: - Acute on chronic. - States has nebulizer machine and meds but doesn't use it because it makes him cough. - Encouraged with scheduled nebulized treatment. - Continue bronchodilators. - Currently on 6L/NC per home dose. - Antitussives PRN. (3) Restrictive lung disease secondary to obesity: Code(s): J98.4 - Other disorders of lung; E66.9 - Obesity, unspecified Status: Acute Assessment and Plan: - Mgt as above. - Encouraged with lifestyle modification to lose weight. - Consider diamond grader consult if no improvement in symptoms. (4) Obstructive sleep apnea: Code(s): G47.33 - Obstructive sleep apnea (adult) (pediatric) Status: Acute Assessment and Plan: - CPAP bedtime. (5) Diastolic dysfunction: Code(s): I51.89 - Other ill-defined heart diseases Status: Acute Assessment and Plan: - Appears stable. - Continue lasix PO diuresis. (6) Insulin dependent type 2 diabetes mellitus: Code(s): E11.9 - Type 2 diabetes mellitus without complications; Z79.4 - prison (current) use of insulin Status: Acute Assessment and Plan: - Blood glucose levels elevated possibly due to steroids given on presentation. - Lantus dose slightly increased. - Started on schedule prandial insulin. - Continue to adjust insulin for optimal BGL level. (7) Paroxysmal atrial fibrillation: Code(s): I48.0 - Paroxysmal atrial fibrillation Status: Acute Assessment and Plan: - Rate well controlled. - Continue Sotalol and apixaban. Time Spent With Patient Time with patient: 25 - 35 minutes Subjective Date/time seen: 05/26/24 10:55 Interval history: Patient presented to the ER with reports of increased SOB within the last couple of day. He was seen in the ED on 05/15/2024 for the naomie symptoms and was diagnosed with a COPD exacerbation, discharged home on doxycycline and prednisone. He is not feeling any better and continues to have cough productive of green phlegm, shortness of breath, and generalized weakness. Patient uses 6L/NC O2/NC at baseline and does not perform much activities at home, sits on recliner for the most part. Currently patient on bedrest and states he's been coughing a lot, coughing up dark sputum. Review of Systems Review of Systems: 12 systems were reviewed and are negative except for as per HPI. Exam Narrative: General: Chronically ill-appearing gentleman, sitting bedside with intermittent cough episodes. HEENT: PERRL, EOMI. Sclera anicteric. Oral mucosa moist. Neck: Supple. Respiratory: Lung sounds diminished bilaterally. Cardiovascular: Regular rate and rhythm, no murmurs. Gastrointestinal: Abdomen is soft, obese, nontender, and nondistended with positive bowel sounds. Skin: Warm and dry. Extremities: No cyanosis, clubbing, or significant edema. Radial and pedal pulses intact. Neurological: Alert. Cranial nerves II-XII are grossly intact. No gross focal deficits noted. Psychiatric: Cooperative with appropriate mood and affect. Objective Data Vi
[2024-05-26] MEDS: guaiFENesin/DEXTROMETHORPHAN 10 ML UDC PO ×3 (12:04→20:23)
[2024-05-26 12:23] LABS: Glucose Point of Care 119 mg/dl (65-105)
[2024-05-26 12:28] LABS: Basophils Percent Auto 0.2 % (0.2-1.2); Eosinophils Percent Auto 0.3 % (0-4.4); Hematocrit 42.6 % (42.0-52.0); Hemoglobin 12.9 g/dL (14.0-18.0); Immature Granulocyte Absolute 0.06 K/mm3 (0.00-0.031); Immature Granulocyte Percent A 0.6 % (0-0.5); Lymphocytes Absolute Auto 1.69 K/mm3 (0.9-3.2); Lymphocytes Percent Auto 17.6 % (18.3-44.2); Mean Corpuscular HGB Conc 30.3 g/dl (32-36); Mean Corpuscular Hemoglobin 29.7 pg (26-34); Mean Corpuscular Volume 97.9 fl (80-100); Mean Platelet Volume 9.7 fl (7.4-10.4); Monocytes Percent Auto 10.1 % (2.6-8.5); Neutrophils Absolute Auto 6.8 K/mm3 (1.3-6.7); Neutrophils Percent Auto 71.2 % (45.5-73.1); Platelet Count Result 253 k/mm3 (150-375); Red Blood Count 4.35 M/mm3 (4.6-6.20); Red Cell Distribution Width 15.2 % (11.5-14.5); White Blood Count 9.6 K/mm3 (4.5-10.0)
[2024-05-26 17:33] LABS: Glucose Point of Care 105 mg/dl (65-105)
[2024-05-26] MEDS: TAMSULOSIN HCL 0.4 MG CAPSULE PO (20:20)
[2024-05-26] MEDS: oxyCODONE/ACETAMINOPHEN (*CRX) 5-325 MG TABLET 1 TABLET PO (20:25)
[2024-05-27] VITALS (16 sets, daily range): BP systolic 99–115; BP diastolic 42–66; PULSE 54–85; RESP 18–20; TEMP 36.2–36.8; O2SAT 93–100
[2024-05-27 01:25] LABS: Glucose Point of Care 200 mg/dl (65-105)
[2024-05-27] MEDS: IPRATROPIUM 0.5 MG/ALBUTEROL SULFATE 2.5 MG AMPUL.NEB 3 ML INHALATION ×4 (01:38→20:08)
[2024-05-27 07:35] LABS: Basophils Percent Auto 0.4 % (0.2-1.2); Eosinophils Absolute Auto 0.1 K/mm3 (0-0.3); Eosinophils Percent Auto 1.2 % (0-4.4); Hematocrit 41.8 % (42.0-52.0); Hemoglobin 12.7 g/dL (14.0-18.0); Immature Granulocyte Absolute 0.03 K/mm3 (0.00-0.031); Immature Granulocyte Percent A 0.4 % (0-0.5); Lymphocytes Absolute Auto 1.63 K/mm3 (0.9-3.2); Lymphocytes Percent Auto 21.1 % (18.3-44.2); Mean Corpuscular HGB Conc 30.4 g/dl (32-36); Mean Corpuscular Hemoglobin 29.7 pg (26-34); Mean Corpuscular Volume 97.9 fl (80-100); Mean Platelet Volume 9.8 fl (7.4-10.4); Monocytes Absolute Auto 0.9 K/mm3 (0.1-0.6); Monocytes Percent Auto 11.1 % (2.6-8.5); Neutrophils Absolute Auto 5.1 K/mm3 (1.3-6.7); Neutrophils Percent Auto 65.8 % (45.5-73.1); Platelet Count Result 230 k/mm3 (150-375); Red Blood Count 4.27 M/mm3 (4.6-6.20); Red Cell Distribution Width 15.4 % (11.5-14.5); White Blood Count 7.7 K/mm3 (4.5-10.0)
[2024-05-27 07:53] LABS: Anion Gap 5 mmol/L (4-12); Blood Urea Nitrogen 26 mg/dL (9-20); Calcium 8.8 mg/dL (8.4-10.2); Carbon Dioxide 36 mmol/L (22-30); Chloride 99 mmol/L (98-107); Estimated CRCL calculation 80 ml/min; Estimated Glomerular Filt Rate > 60; Glucose 87 mg/dL (65-110); Potassium 3.8 mmol/L (3.4-5.0); Sodium 140 mmol/L (137-145)
[2024-05-27 08:38] LABS: Glucose Point of Care 89 mg/dl (65-105)
[2024-05-27] MEDS: buPROPion HCL SR (12HR) 100 MG TABCR PO (09:14)
[2024-05-27] MEDS: guaiFENesin 12 HR 600 MG TABCR 1200 MG PO ×2 (09:14→20:04)
[2024-05-27] MEDS: APIXABAN 2.5 MG TABLET PO ×2 (09:14→20:04)
[2024-05-27] MEDS: DOXYCYCLINE HYCLATE 100 MG TABLET PO ×2 (09:14→20:04)
[2024-05-27] MEDS: FINASTERIDE 5 MG TABLET BY MOUTH (09:14)
[2024-05-27] MEDS: PARoxetine 20 MG TABLET PO (09:15)
[2024-05-27] MEDS: BENZONATATE 100 MG CAPSULE PO ×3 (09:15→16:31)
[2024-05-27] MEDS: ATORVASTATIN 20 MG TABLET PO (09:15)
[2024-05-27] MEDS: metFORMIN HCL 500 MG TABLET PO ×2 (09:15→16:32)
[2024-05-27] MEDS: FUROSEMIDE 20 MG TABLET PO (09:15)
[2024-05-27] MEDS: PANTOPRAZOLE 40 MG TABLET PO ×2 (09:15→20:04)
[2024-05-27] MEDS: dilTIAZem HCL CD 240 MG CAP.24HR BY MOUTH (09:15)
[2024-05-27] MEDS: SOTALOL HCL 80 MG TABLET PO ×2 (09:16→20:04)
[2024-05-27] MEDS: INSULIN GLARGINE (*BKC) 100 UNITS/ML 35 UNITS SUB-Q (09:54)
[2024-05-27 11:08] LABS: Glucose Point of Care 120 mg/dl (65-105)
[2024-05-27] MEDS: INSULIN ASPART (*BKC) 100 UNITS/ML 6 UNITS SUB-Q (12:13)
[2024-05-27] MEDS: guaiFENesin/DEXTROMETHORPHAN 10 ML UDC PO ×2 (12:18→20:05)
[2024-05-27 12:27] LABS: Glucose Point of Care 135 mg/dl (65-105)
--- NOTE | 2024-05-27 13:51 | PM.IMPN ---
Progress Note: A&P Assessment and Plan (1) Pneumonia: Qualifiers: Laterality: bilateral Pneumonia type: due to unspecified organism Code(s): J18.9 - Pneumonia, unspecified organism Status: Acute Assessment and Plan: CXR 05/24: Impression: 1: Bibasilar airspace disease may represent atelectasis/scarring or pneumonia. 2: Chronic right pleural effusion/pleural thickening. - Sputum culture growing gram positive cocci. - Vancomycin added. - Continue Ceftriaxone and doxycycline. - Currently on 6L/NC per home dose. - Repeat CXR with no changes from prior. - Clay Modeler consulted. (2) Chronic respiratory failure with hypoxia, on home oxygen therapy: Code(s): J96.11 - Chronic respiratory failure with hypoxia; Z99.81 - Dependence on supplemental oxygen Status: Acute Assessment and Plan: - Acute on chronic. - States has nebulizer machine and meds but doesn't use it because it makes him cough. - Encouraged with scheduled nebulized treatment. - Continue bronchodilators. - Currently on 6L/NC per home dose. - Antitussives PRN. - Clay Modeler consulted. (3) Restrictive lung disease secondary to obesity: Code(s): J98.4 - Other disorders of lung; E66.9 - Obesity, unspecified Status: Acute Assessment and Plan: - Mgt as above. - Encouraged with lifestyle modification to lose weight. - Clay Modeler consulted. (4) Obstructive sleep apnea: Code(s): G47.33 - Obstructive sleep apnea (adult) (pediatric) Status: Acute Assessment and Plan: - CPAP bedtime. (5) Diastolic dysfunction: Code(s): I51.89 - Other ill-defined heart diseases Status: Acute Assessment and Plan: - Appears stable. - Continue lasix PO diuresis. (6) Insulin dependent type 2 diabetes mellitus: Code(s): E11.9 - Type 2 diabetes mellitus without complications; Z79.4 - long term acute care registered nurse (current) use of insulin Status: Acute Assessment and Plan: - Blood glucose levels elevated possibly due to steroids given on presentation. - Lantus dose slightly increased. - Started on schedule prandial insulin. - Continue to adjust insulin for optimal BGL level. (7) Paroxysmal atrial fibrillation: Code(s): I48.0 - Paroxysmal atrial fibrillation Status: Acute Assessment and Plan: - Rate well controlled. - Continue Sotalol and apixaban. Subjective Date/time seen: 05/27/24 13:51 Interval history: Patient presented to the ER with reports of increased SOB within the last couple of day. He was seen in the ED on 05/15/2024 for the naomie symptoms and was diagnosed with a COPD exacerbation, discharged home on doxycycline and prednisone. He is not feeling any better and continues to have cough productive of green phlegm, shortness of breath, and generalized weakness. Patient uses 6L/NC O2/NC at baseline and does not perform much activities at home, sits on recliner for the most part. Patient seated bedside and reports coughing the same and coughs until he feels dizzy. Review of Systems Review of Systems: 12 systems were reviewed and are negative except for as per HPI. Exam Narrative: General: Chronically ill-appearing gentleman, sitting bedside with intermittent cough episodes. HEENT: PERRL, EOMI. Sclera anicteric. Oral mucosa moist. Neck: Supple. Respiratory: Lung sounds diminished bilaterally. Cardiovascular: Regular rate and rhythm, no murmurs. Gastrointestinal: Abdomen is soft, obese, nontender, and nondistended with positive bowel sounds. Skin: Warm and dry. Extremities: No cyanosis, clubbing, or significant edema. Radial and pedal pulses intact. Neurological: Alert. Cranial nerves II-XII are grossly intact. No gross focal deficits noted. Psychiatric: Cooperative with appropriate mood and affect. Objective Data Vital Signs Vital Signs: Vital Signs - 24 hr 05/26/24 14:17 05/26/24 14:20 05/26/24 14:10 Temperature
[2024-05-27] MEDS: VANCOMYCIN 1,250 MG/NS 250 ML 1,250 MG/250 ML BAG 166.67 MG IVPB ×2 (16:30→18:15)
[2024-05-27] MEDS: oxyCODONE/ACETAMINOPHEN (*CRX) 5-325 MG TABLET 1 TABLET PO (16:49)
[2024-05-27 17:05] LABS: Glucose Point of Care 85 mg/dl (65-105)
[2024-05-27 17:52] LABS: MRSA (PCR) NOT DETECTED (NOT DETECTE)
[2024-05-27] MEDS: TAMSULOSIN HCL 0.4 MG CAPSULE PO (20:04)
[2024-05-27 21:30] LABS: Glucose Point of Care 125 mg/dl (65-105)
[2024-05-28] VITALS (17 sets, daily range): BP systolic 101–115; BP diastolic 42–93; PULSE 56–73; RESP 17–24; TEMP 36.6–37; O2SAT 91–97
[2024-05-28] MEDS: IPRATROPIUM 0.5 MG/ALBUTEROL SULFATE 2.5 MG AMPUL.NEB 3 ML INHALATION ×4 (02:09→20:11)
[2024-05-28] MEDS: VANCOMYCIN 1,500 MG/NS 500 ML 1,500 MG/500 ML BAG 250 MG IVPB (03:31)
[2024-05-28 05:55] LABS: Estimated CRCL calculation 73 ml/min; Estimated Glomerular Filt Rate > 60
--- NOTE | 2024-05-28 07:30 | PM.IMPN ---
Progress Note: A&P Assessment and Plan (1) Pneumonia: Qualifiers: Laterality: bilateral Pneumonia type: due to unspecified organism Code(s): J18.9 - Pneumonia, unspecified organism Status: Acute Assessment and Plan: CXR 05/24: Impression: 1: Bibasilar airspace disease may represent atelectasis/scarring or pneumonia. 2: Chronic right pleural effusion/pleural thickening. - Sputum culture growing gram positive cocci. --Vanc discontinued - Continue Ceftriaxone and doxycycline. - On 6L/NC per home dose. - Repeat CXR with no changes from prior. - Log Chain Worker consulted. (2) Chronic respiratory failure with hypoxia, on home oxygen therapy: Code(s): J96.11 - Chronic respiratory failure with hypoxia; Z99.81 - Dependence on supplemental oxygen Status: Acute Assessment and Plan: - Acute on chronic. - States has nebulizer machine and meds but doesn't use it because it makes him cough. - Encouraged with scheduled nebulized treatment. - Continue bronchodilators. - Currently on 6L/NC per home dose. - Antitussives PRN. - Log Chain Worker consulted. (3) Restrictive lung disease secondary to obesity: Code(s): J98.4 - Other disorders of lung; E66.9 - Obesity, unspecified Status: Acute Assessment and Plan: - Mgt as above. - Encouraged with lifestyle modification to lose weight. - Log Chain Worker consulted. (4) Obstructive sleep apnea: Code(s): G47.33 - Obstructive sleep apnea (adult) (pediatric) Status: Acute Assessment and Plan: - CPAP bedtime. (5) Diastolic dysfunction: Code(s): I51.89 - Other ill-defined heart diseases Status: Acute Assessment and Plan: - Appears stable. - Continue lasix PO diuresis. (6) Insulin dependent type 2 diabetes mellitus: Code(s): E11.9 - Type 2 diabetes mellitus without complications; Z79.4 - manager long term care (current) use of insulin Status: Acute Assessment and Plan: Home Lantus: - Blood glucose levels elevated possibly due to steroids given on presentation. - lantus initially increased, but blood sugars trending down --Decreased from 65 and 5 TID to 30 units, 5 TID 9/5, decrease to 24, 5 TID 9/5. Would increase mealtime if trending up - Started on schedule prandial insulin. - Continue to adjust insulin for optimal BGL level. (7) Paroxysmal atrial fibrillation: Code(s): I48.0 - Paroxysmal atrial fibrillation Status: Acute Assessment and Plan: - Rate well controlled. - Continue Sotalol and apixaban. Plan Patient presented to the ER with reports of increased SOB within the last couple of day. He was seen in the ED on 05/15/2024 for the naomie symptoms and was diagnosed with a COPD exacerbation, discharged home on doxycycline and prednisone. He is not feeling any better and continues to have cough productive of green phlegm, shortness of breath, and generalized weakness. Patient uses 6L/NC O2/NC at baseline and does not perform much activities at home, sits on recliner for the most part. Patient seated bedside and reports coughing the same and coughs until he feels dizzy. Time Spent With Patient Time: 64 minutes Subjective Date/time seen: 05/28/24 07:30 Interval history: Reports a productive cough with yellow green sputum, sent yesterday for culture. Shortness of breath improving. Reports feeling dizzy and seeing stars with activity yesterday but improved today. Doesn't feel he needs to work with physical therapy Review of Systems Review of Systems: 12 systems were reviewed and are negative except for as per HPI. Exam Narrative: General: Chronically ill-appearing gentleman, sitting bedside with intermittent cough episodes. HEENT: PERRL, EOMI. Sclera anicteric. Oral mucosa moist. Neck: Supple. Respiratory: Lung sounds diminished bilaterally. Cardiovascular: Regular rate and rhythm, no murmurs. Gastrointestinal: Abdomen is soft, obese, nontender
[2024-05-28 09:18] LABS: Glucose Point of Care 87 mg/dl (65-105)
[2024-05-28] MEDS: BENZONATATE 100 MG CAPSULE PO ×3 (09:37→17:15)
[2024-05-28] MEDS: APIXABAN 2.5 MG TABLET PO ×2 (09:37→20:01)
[2024-05-28] MEDS: dilTIAZem HCL CD 240 MG CAP.24HR BY MOUTH (09:37)
[2024-05-28] MEDS: INSULIN GLARGINE (*BKC) 100 UNITS/ML 30 UNITS SUB-Q (09:37)
[2024-05-28] MEDS: buPROPion HCL SR (12HR) 100 MG TABCR PO (09:37)
[2024-05-28] MEDS: ATORVASTATIN 20 MG TABLET PO (09:37)
[2024-05-28] MEDS: DOXYCYCLINE HYCLATE 100 MG TABLET PO ×2 (09:38→20:02)
[2024-05-28] MEDS: FINASTERIDE 5 MG TABLET BY MOUTH (09:38)
[2024-05-28] MEDS: guaiFENesin 12 HR 600 MG TABCR 1200 MG PO ×2 (09:38→20:01)
[2024-05-28] MEDS: SOTALOL HCL 80 MG TABLET PO ×2 (09:38→20:02)
[2024-05-28] MEDS: PARoxetine 20 MG TABLET PO (09:38)
[2024-05-28] MEDS: metFORMIN HCL 500 MG TABLET PO ×2 (09:38→17:15)
[2024-05-28] MEDS: PANTOPRAZOLE 40 MG TABLET PO ×2 (09:38→20:01)
[2024-05-28] MEDS: FUROSEMIDE 20 MG TABLET PO (09:38)
--- NOTE | 2024-05-28 11:20 | PM.CNPUL ---
Assessment and Plan Assessment and plan (1) Chronic respiratory failure with hypoxia, on home oxygen therapy: Code(s): J96.11 - Chronic respiratory failure with hypoxia; Z99.81 - Dependence on supplemental oxygen Status: Acute (2) Obstructive sleep apnea: Code(s): G47.33 - Obstructive sleep apnea (adult) (pediatric) Status: Acute (3) Insulin dependent type 2 diabetes mellitus: Code(s): E11.9 - Type 2 diabetes mellitus without complications; Z79.4 - long term care phlebotomist (current) use of insulin Status: Acute (4) Acquired elevated diaphragm: Code(s): J98.6 - Disorders of diaphragm Status: Acute (5) Pneumonia: Qualifiers: Laterality: bilateral Pneumonia type: due to unspecified organism Code(s): J18.9 - Pneumonia, unspecified organism Status: Acute Assessment and Plan: This 78-year-old man has a history of chronic hypoxemic hypercapnic respiratory failure related to morbid obesity/obesity hypoventilation syndrome and likely restrictive 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 Pulmonary function testing has shown restrictive respiratory disease with severely reduced lung diffusion capacity and moderately reduced total lung capacity, but no evidence of obstructive airway disease. He was previously on medications for obstructive airway disease, but these have been discontinued by his marine designer. A prior echocardiogram raised concerns about elevated pulmonary artery systolic pressure, measured at 54 mmHg. The patient uses high FiO2 both during the day and at night, but his oxyhemoglobin saturation was adequate during the last [facility] outpatient evaluation. This current illness appears to have been precipitated by a lower respiratory tract infection with bronchitis, characterized by cough and increased sputum production. He has had no fever, and his chest x-ray did not show evidence of a lower respiratory tract infection. Clinically, the patient has improved on three antibiotics. On physical exam, he continues to have crackles at the right base posteriorly, which are probably related to some atelectasis due to the chronically elevated hemidiaphragm rather than pneumonia. He has not had a chest CT or arterial blood gases during this admission. Plan: The patient seems to be improving on the current regimen of nebulized short-acting bronchodilators and three antibiotics. His white cell count is normal, and he is fully awake and alert. I recommend continuing with just ceftriaxone and doxycycline and discontinuing vancomycin at this point, as his MRSA screen is negative. We will obtain an [facility] over the next couple of days. History of Present Illness History of Present Illness Consult date: 05/28/24 Chief complaint: copd exacerbation Narrative: This is a 78-year-old male with chronic respiratory failure on home oxygen who presented to the emergency room with shortness of breath. The patient is well known to the Pulmonary Services at [facility]. His medical history includes obesity hypoventilation syndrome, obstructive sleep apnea, restrictive respiratory disease, morbid obesity, insulin-dependent type 2 diabetes mellitus, paroxysmal atrial fibrillation on chronic anticoagulation, chronic kidney disease, hyperlipidemia, benign prostatic hyperplasia, and depression. He also has a history of multiple right rib fractures with minimal fibrothorax and a chronically elevated right hemidiaphragm. The patient has been on home ventilatory support via an Astral 150 device and uses supplemental oxygen at 6 liters per minute during the day and 8 liters per minute at night. An echocardiogram from last year showed elevated pulmonary artery systolic pressure at 54 mmHg. He was seen in the ED on 05/15/2024 for chest congestion and shortness of breath, was diagnos
[2024-05-28 12:14] LABS: Glucose Point of Care 117 mg/dl (65-105)
[2024-05-28] MEDS: INSULIN ASPART (*BKC) 100 UNITS/ML SUB-Q ×2 (12:25→17:16)
[2024-05-28] MEDS: guaiFENesin/DEXTROMETHORPHAN 10 ML UDC PO ×2 (12:26→20:02)
[2024-05-28] MEDS: oxyCODONE/ACETAMINOPHEN (*CRX) 5-325 MG TABLET 1 TABLET PO ×2 (15:35→22:44)
[2024-05-28 17:00] LABS: Glucose Point of Care 91 mg/dl (65-105)
[2024-05-28] MEDS: TAMSULOSIN HCL 0.4 MG CAPSULE PO (20:02)
[2024-05-28 20:47] LABS: Glucose Point of Care 87 mg/dl (65-105)
[2024-05-29] VITALS (15 sets, daily range): BP systolic 98–127; BP diastolic 55–86; PULSE 60–85; RESP 16–20; TEMP 36.2–37.1; O2SAT 90–97
[2024-05-29] MEDS: IPRATROPIUM 0.5 MG/ALBUTEROL SULFATE 2.5 MG AMPUL.NEB 3 ML INHALATION ×4 (01:58→20:05)
[2024-05-29] MEDS: PANTOPRAZOLE 40 MG TABLET PO ×2 (08:45→21:02)
[2024-05-29] MEDS: guaiFENesin 12 HR 600 MG TABCR 1200 MG PO ×2 (08:45→21:01)
[2024-05-29] MEDS: FUROSEMIDE 20 MG TABLET PO (08:45)
[2024-05-29] MEDS: metFORMIN HCL 500 MG TABLET PO ×2 (08:45→17:42)
[2024-05-29] MEDS: DOXYCYCLINE HYCLATE 100 MG TABLET PO (08:46)
[2024-05-29] MEDS: PARoxetine 20 MG TABLET PO (08:46)
[2024-05-29] MEDS: APIXABAN 2.5 MG TABLET PO ×2 (08:46→21:01)
[2024-05-29] MEDS: FINASTERIDE 5 MG TABLET BY MOUTH (08:46)
[2024-05-29] MEDS: BENZONATATE 100 MG CAPSULE PO ×3 (08:46→17:42)
[2024-05-29] MEDS: ATORVASTATIN 20 MG TABLET PO (08:46)
[2024-05-29] MEDS: buPROPion HCL SR (12HR) 100 MG TABCR PO (08:46)
[2024-05-29] MEDS: SOTALOL HCL 80 MG TABLET PO ×2 (08:49→21:02)
[2024-05-29] MEDS: dilTIAZem HCL CD 240 MG CAP.24HR BY MOUTH (08:49)
[2024-05-29 08:53] LABS: Glucose Point of Care 101 mg/dl (65-105)
[2024-05-29] MEDS: oxyCODONE/ACETAMINOPHEN (*CRX) 5-325 MG TABLET 1 TABLET PO ×2 (08:54→17:42)
[2024-05-29] MEDS: INSULIN ASPART (*BKC) 100 UNITS/ML SUB-Q ×3 (08:57→17:47)
[2024-05-29] MEDS: INSULIN GLARGINE (*BKC) 100 UNITS/ML 25 UNITS SUB-Q (08:57)
--- NOTE | 2024-05-29 09:34 | PM.IMPN ---
Progress Note: A&P Assessment and Plan (1) Pneumonia: Qualifiers: Laterality: bilateral Pneumonia type: due to unspecified organism Code(s): J18.9 - Pneumonia, unspecified organism Status: Acute Assessment and Plan: CXR 05/24: Impression: 1: Bibasilar airspace disease may represent atelectasis/scarring or pneumonia. 2: Chronic right pleural effusion/pleural thickening. - Sputum culture growing gram positive cocci. --Vanc discontinued - Continue Ceftriaxone and doxycycline. - On 6L/NC per home dose. - Repeat CXR with no changes from prior. - Multiple Drum Sander consulted. on ceftriaxone and doxy currently (2) Chronic respiratory failure with hypoxia, on home oxygen therapy: Code(s): J96.11 - Chronic respiratory failure with hypoxia; Z99.81 - Dependence on supplemental oxygen Status: Acute Assessment and Plan: - Acute on chronic. - States has nebulizer machine and meds but doesn't use it because it makes him cough. - Encouraged with scheduled nebulized treatment. - Continue bronchodilators. - Currently on 6L/NC per home dose. - Antitussives PRN. - Multiple Drum Sander consulted. (3) Restrictive lung disease secondary to obesity: Code(s): J98.4 - Other disorders of lung; E66.9 - Obesity, unspecified Status: Acute Assessment and Plan: - Mgt as above. - Encouraged with lifestyle modification to lose weight. - Multiple Drum Sander consulted. (4) Obstructive sleep apnea: Code(s): G47.33 - Obstructive sleep apnea (adult) (pediatric) Status: Acute Assessment and Plan: - CPAP bedtime. (5) Diastolic dysfunction: Code(s): I51.89 - Other ill-defined heart diseases Status: Acute Assessment and Plan: - Appears stable. - Continue lasix PO diuresis. - monitor I/O, electrolytes, kidney function (6) Insulin dependent type 2 diabetes mellitus: Code(s): E11.9 - Type 2 diabetes mellitus without complications; Z79.4 - [facility] (current) use of insulin Status: Acute Assessment and Plan: Home Lantus: - Blood glucose levels elevated possibly due to steroids given on presentation. - lantus initially increased, but blood sugars trending down --Decreased from 65 and 5 TID to 30 units, 5 TID /, decrease to 24, 5 TID 05/29. Would increase mealtime if trending up - Started on schedule prandial insulin. - Continue to adjust insulin for optimal BGL level. (7) Paroxysmal atrial fibrillation: Code(s): I48.0 - Paroxysmal atrial fibrillation Status: Acute Assessment and Plan: - Rate well controlled. - Continue Sotalol and apixaban. Plan Patient presented to the ER with reports of increased SOB within the last couple of day. He was seen in the ED on 05/15/2024 for the naomie symptoms and was diagnosed with a COPD exacerbation, discharged home on doxycycline and prednisone. He is not feeling any better and continues to have cough productive of green phlegm, shortness of breath, and generalized weakness. Patient uses 6L/NC O2/NC at baseline and does not perform much activities at home, sits on recliner for the most part. Patient seated bedside and reports coughing the same and coughs until he feels dizzy. Time Spent With Patient Time with patient: Greater than 35 minutes Subjective Date/time seen: 05/29/24 09:34 Interval history: This current illness started with lower respiratory tract infection with bronchitis, characterized by cough and increased sputum production. He has had no fever, and his chest x-ray did not show evidence of a lower respiratory tract infection. Patient has improved on three antibiotics since admission. He is currently on ceftriaxone and doxycycline and van was d/c as MRSA was negative. pulm following with pt- [facility] over the next couple of days. 05/29 pt is seen and examined. he is doing well- still cough but able to cough it up. Discussed IS- will do it. Ambulating in the room. Review of Syst
[2024-05-29 12:07] LABS: Glucose Point of Care 103 mg/dl (65-105)
--- NOTE | 2024-05-29 14:09 | PM.PNPUL ---
Progress Note: A&P Assessment and Plan (1) Chronic respiratory failure with hypoxia, on home oxygen therapy: Code(s): J96.11 - Chronic respiratory failure with hypoxia; Z99.81 - Dependence on supplemental oxygen Status: Acute (2) Obstructive sleep apnea: Code(s): G47.33 - Obstructive sleep apnea (adult) (pediatric) Status: Acute (3) Chronic anticoagulation: Code(s): Z79.01 - [facility] (current) use of anticoagulants Status: Acute (4) Extreme obesity: Code(s): E66.8 - Other obesity Status: Acute (5) Acute and chronic respiratory failure: Qualifiers: Respiratory failure complication: hypoxia Qualified Code(s): J96.21 - Acute and chronic respiratory failure with hypoxia Code(s): J96.20 - Acute and chronic respiratory failure, unspecified whether with hypoxia or hypercapnia Status: Acute Assessment and Plan: This 78-year-old man has a history of chronic hypoxemic hypercapnic respiratory failure related to morbid obesity/obesity hypoventilation syndrome and likely restrictive 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 Pulmonary function testing has shown restrictive respiratory disease with severely reduced lung diffusion capacity and moderately reduced total lung capacity, but no evidence of obstructive airway disease. He was previously on medications for obstructive airway disease, but these have been discontinued by his auto wash buffer. A prior echocardiogram raised concerns about elevated pulmonary artery systolic pressure, measured at 54 mmHg. The patient uses high FiO2 both during the day and at night, but his oxyhemoglobin saturation was adequate during the last [facility] outpatient evaluation. This current illness appears to have been precipitated by a lower respiratory tract infection with bronchitis, characterized by cough and increased sputum production. He has had no fever, and his chest x-ray did not show evidence of a lower respiratory tract infection. Clinically, the patient has improved on three antibiotics. On physical exam, he continues to have crackles at the right base posteriorly, which are probably related to some atelectasis due to the chronically elevated hemidiaphragm rather than pneumonia. He has not had a chest CT or arterial blood gases during this admission. Patient was taken off antibiotics earlier today. He has no leukocytosis. Overall his respiratory status has improved although he continues to have chest congestion and mild cough Plan: The patient seems to be improving on the current regimen of nebulized short-acting bronchodilators. His currently off antibiotics. Continue with current regimen at this point, home ventilator at night. Ambulate patient in room spent time out of bed in chair. (6) Diastolic heart failure: Qualifiers: Heart failure chronicity: chronic Qualified Code(s): I50.32 - Chronic diastolic (congestive) heart failure Code(s): I50.30 - Unspecified diastolic (congestive) heart failure Status: Acute (7) Hypercapnic respiratory failure: Qualifiers: Chronicity: chronic Qualified Code(s): J96.12 - Chronic respiratory failure with hypercapnia Code(s): J96.92 - Respiratory failure, unspecified with hypercapnia Status: Acute (8) Atrial fibrillation: Qualifiers: Atrial fibrillation type: paroxysmal Qualified Code(s): I48.0 - Paroxysmal atrial fibrillation Code(s): I48.91 - Unspecified atrial fibrillation Status: Acute Subjective Date/time seen: 05/29/24 14:09 Interval history: Patient stated his breathing has improved. Still has chest congestion unable to cough up any phlegm. Shortness of breath about baseline spends most of the day bed. He uses own home ventilator device with high FiO2 at night. [place]
[2024-05-29 17:40] LABS: Glucose Point of Care 136 mg/dl (65-105)
[2024-05-29 20:43] LABS: Glucose Point of Care 154 mg/dl (65-105)
[2024-05-29] MEDS: TAMSULOSIN HCL 0.4 MG CAPSULE PO (21:01)
[2024-05-29] MEDS: guaiFENesin/DEXTROMETHORPHAN 10 ML UDC PO (21:06)
[2024-05-29] MEDS: HYDROcodone/acetaminophen (*CRX) 5-325 MG TABLET 1 TAB PO (21:08)
[2024-05-30] VITALS (8 sets, daily range): BP systolic 105; BP diastolic 55; PULSE 50–70; RESP 18; TEMP 36.9; O2SAT 94–96
[2024-05-30] MEDS: IPRATROPIUM 0.5 MG/ALBUTEROL SULFATE 2.5 MG AMPUL.NEB 3 ML INHALATION ×2 (02:07→08:47)
--- NOTE | 2024-05-30 09:10 | PM.PNPUL ---
Progress Note: A&P Assessment and Plan (1) Chronic respiratory failure with hypoxia, on home oxygen therapy: Code(s): J96.11 - Chronic respiratory failure with hypoxia; Z99.81 - Dependence on supplemental oxygen Status: Acute (2) Obstructive sleep apnea: Code(s): G47.33 - Obstructive sleep apnea (adult) (pediatric) Status: Acute (3) Chronic anticoagulation: Code(s): Z79.01 - senior living (current) use of anticoagulants Status: Acute (4) Extreme obesity: Code(s): E66.8 - Other obesity Status: Acute (5) Acute and chronic respiratory failure: Qualifiers: Respiratory failure complication: hypoxia Qualified Code(s): J96.21 - Acute and chronic respiratory failure with hypoxia Code(s): J96.20 - Acute and chronic respiratory failure, unspecified whether with hypoxia or hypercapnia Status: Acute Assessment and Plan: This 78-year-old man has a history of chronic hypoxemic hypercapnic respiratory failure related to morbid obesity/obesity hypoventilation syndrome and likely restrictive 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 Pulmonary function testing has shown restrictive respiratory disease with severely reduced lung diffusion capacity and moderately reduced total lung capacity, but no evidence of obstructive airway disease. He was previously on medications for obstructive airway disease, but these have been discontinued by his cloth cutting inspector. A prior echocardiogram raised concerns about elevated pulmonary artery systolic pressure, measured at 54 mmHg. The patient uses high FiO2 both during the day and at night, but his oxyhemoglobin saturation was adequate during the last [facility] outpatient evaluation. This current illness appears to have been precipitated by a lower respiratory tract infection with bronchitis, characterized by cough and increased sputum production. He has had no fever, and his chest x-ray did not show evidence of a lower respiratory tract infection. Clinically, the patient has improved on three antibiotics. On physical exam, he continues to have crackles at the right base posteriorly, which are probably related to some atelectasis due to the chronically elevated hemidiaphragm rather than pneumonia. He has not had a chest CT or arterial blood gases during this admission. Patient is currently off antibiotics. On last testing he had no leukocytosis. Plan: Okay to discharge patient home. The patient will continue with his home oxygen and home ventilator as prescribed. Also to continue with his nebulized short-acting bronchodilators. The patient will have to return to pulmonary clinic to see his cloth cutting inspector in approximately 3-4 weeks. At this point will sign off please call with any questions. (6) Diastolic heart failure: Qualifiers: Heart failure chronicity: chronic Qualified Code(s): I50.32 - Chronic diastolic (congestive) heart failure Code(s): I50.30 - Unspecified diastolic (congestive) heart failure Status: Acute (7) Hypercapnic respiratory failure: Qualifiers: Chronicity: chronic Qualified Code(s): J96.12 - Chronic respiratory failure with hypercapnia Code(s): J96.92 - Respiratory failure, unspecified with hypercapnia Status: Acute (8) Atrial fibrillation: Qualifiers: Atrial fibrillation type: paroxysmal Qualified Code(s): I48.0 - Paroxysmal atrial fibrillation Code(s): I48.91 - Unspecified atrial fibrillation Status: Acute Subjective Date/time seen: 05/30/24 09:10 Interval history: Patient has improved significantly. Sitting in chair while on supplemental oxygen. Still residual cough but has not been able to cough up any phlegm. Shortness of breath about baseline. Afebrile Review of Systems Review of Systems: All syste
[2024-05-30 09:12] LABS: Glucose Point of Care 227 mg/dl (65-105)
[2024-05-30] MEDS: guaiFENesin 12 HR 600 MG TABCR 1200 MG PO (09:20)
[2024-05-30] MEDS: metFORMIN HCL 500 MG TABLET PO (09:20)
[2024-05-30] MEDS: FINASTERIDE 5 MG TABLET BY MOUTH (09:20)
[2024-05-30] MEDS: ATORVASTATIN 20 MG TABLET PO (09:21)
[2024-05-30] MEDS: PANTOPRAZOLE 40 MG TABLET PO (09:21)
[2024-05-30] MEDS: BENZONATATE 100 MG CAPSULE PO (09:21)
[2024-05-30] MEDS: FUROSEMIDE 20 MG TABLET PO (09:21)
[2024-05-30] MEDS: PARoxetine 20 MG TABLET PO (09:21)
[2024-05-30] MEDS: APIXABAN 2.5 MG TABLET PO (09:21)
[2024-05-30] MEDS: buPROPion HCL SR (12HR) 100 MG TABCR PO (09:21)
[2024-05-30] MEDS: dilTIAZem HCL CD 240 MG CAP.24HR BY MOUTH (09:22)
[2024-05-30] MEDS: SOTALOL HCL 80 MG TABLET PO (09:22)
[2024-05-30] MEDS: oxyCODONE/ACETAMINOPHEN (*CRX) 5-325 MG TABLET 1 TABLET PO (09:22)
[2024-05-30] MEDS: INSULIN GLARGINE (*BKC) 100 UNITS/ML 25 UNITS SUB-Q (09:25)
[2024-05-30] MEDS: INSULIN ASPART (*BKC) 100 UNITS/ML SUB-Q ×2 (09:26)
--- NOTE | 2024-05-30 11:06 | PM.DS ---
DS: Admitting Diagnosis Discharge Date 05/30/2024 Admitting Diagnosis Pneumonia chronic anticoagulation Chronic respiratory failure on home oxygen COPD Sleep apnea Diastolic dysfunction Type 2 diabetes mellitus with long-term use of insulin Paroxysmal AFib DS: Discharge Diagnosis Discharge Diagnosis (1) Pneumonia: Qualifiers: Laterality: bilateral Pneumonia type: due to unspecified organism Code(s): J18.9 - Pneumonia, unspecified organism Status: Acute Assessment and Plan: CXR 05/24: Impression: 1: Bibasilar airspace disease may represent atelectasis/scarring or pneumonia. 2: Chronic right pleural effusion/pleural thickening. - Sputum culture growing gram positive cocci. --Vanc discontinued - Continue Ceftriaxone and doxycycline. - On 6L/NC per home dose. - Repeat CXR with no changes from prior. - [employer] Technical Assistant consulted. on ceftriaxone and doxy currently 05/30/2021 date of discharge -patient has been evaluated by pulmonology in the believe patient is not actively having pneumonia that instead there is atelectasis. Patient is not currently on any medications such as antibiotics. Low suspicion for pneumonia therefore patient will not require any additional outpatient treatment with antibiotics. (2) Chronic respiratory failure with hypoxia, on home oxygen therapy: Code(s): J96.11 - Chronic respiratory failure with hypoxia; Z99.81 - Dependence on supplemental oxygen Status: Acute Assessment and Plan: - Acute on chronic. - States has nebulizer machine and meds but doesn't use it because it makes him cough. - Encouraged with scheduled nebulized treatment. - Continue bronchodilators. - Currently on 6L/NC per home dose. - Antitussives PRN. - [employer] Technical Assistant consulted. 05/30/2024: Date of discharge -pulmonology to consult on patient during his inpatient stay and were in agreement with the plan of care. They are comfortable with discharge at this time. They recommend continuing home oxygen as previously tolerated, continue his home ventilator therapy at night and follow up in the pulmonology clinic in 3-4 weeks. (3) Restrictive lung disease secondary to obesity: Code(s): J98.4 - Other disorders of lung; E66.9 - Obesity, unspecified Status: Acute Assessment and Plan: - Mgt as above. - Encouraged with lifestyle modification to lose weight. - [employer] Technical Assistant consulted. 05/30/2024: Date of discharge -see above 2. (4) Obstructive sleep apnea: Code(s): G47.33 - Obstructive sleep apnea (adult) (pediatric) Status: Acute Assessment and Plan: - CPAP bedtime. 05/30/2024: Date of discharge -continue home ventilation at . (5) Diastolic dysfunction: Code(s): I51.89 - Other ill-defined heart diseases Status: Acute Assessment and Plan: - Appears stable. - Continue lasix PO diuresis. - monitor I/O, electrolytes, kidney function 05/30/2024: Date of discharge -last echo 03/2023 showing normal systolic function with ejection fraction of 65-70. Diastolic function was indeterminate given his atrial fibrillation. Patient appears to be euvolemic at this time and stable for discharge (6) Insulin dependent type 2 diabetes mellitus: Code(s): E11.9 - Type 2 diabetes mellitus without complications; Z79.4 - correction (current) use of insulin Status: Acute Assessment and Plan: Home Lantus: - Blood glucose levels elevated possibly due to steroids given on presentation. - lantus initially increased, but blood sugars trending down --Decreased from 65 and 5 TID to 30 units, 5 TID 9/, decrease to 24, 5 TID 05/29. Would increase mealtime if trending up - Started on schedule prandial insulin. - Continue to adjust insulin for optimal BGL level. 05/30/2024: Date of discharge -continue home medications. (7) Paroxysmal atrial fibrillation: Code(s): I48.0 - Paroxysmal atrial fibrillation Status: Acute A
[2024-05-30 18:08] LABS: Mycoplasma IgM Antibody Titer 302 U/mL
== END 2024-05-30 11:45 | disposition home or self-care (01) | DRG 205 ==
LOC: ANHED 09:59 → ANH3MED 12:21
PROVIDERS: Nurse Practitioner Acute Care; Nurse Practitioner Adult Health; Physician Assistant; Admitting Provider General Practice; Emergency Provider Emergency Medicine; PCP Family Medicine; Visit Provider Nurse Practitioner Adult Health
DX: J98.11 Atelectasis (principal); J96.21 Acute and chronic respiratory failure with hypoxia; E66.2 Morbid (severe) obesity with alveolar hypoventilation; Z68.42 Body mass index [BMI] 45.0-49.9, adult; I50.32 Chronic diastolic (congestive) heart failure; J96.12 Chronic respiratory failure with hypercapnia; E11.9 Type 2 diabetes mellitus without complications; I48.0 Paroxysmal atrial fibrillation; J44.9 Chronic obstructive pulmonary disease, unspecified; N40.0 Benign prostatic hyperplasia without lower urinary tract symptoms; Z79.4 Long term (current) use of insulin; Z99.81 Dependence on supplemental oxygen; Z79.01 Long term (current) use of anticoagulants; Z20.822 Contact with and (suspected) exposure to COVID-19; Z79.84 Long term (current) use of oral hypoglycemic drugs
CPT/HCPCS: 36415; 71045; 71046; 80048; 80053; 82565; 82948; 83735; 84145; 85025; 85027; 86140; 86738; 87070; 87205; 87637; 87641; 93005; 94640; 94667; 94668; 96374; 96376; 97161; 97165; 99285; A9270; G0378; J0696; J1815; J2919; J3370

== ENCOUNTER 2024-12-01 09:40 | Emergency (ER) | payer MEDICARE, SELFPAY ==
--- NOTE | ~2024-12-01 | CT_ITS ---
CT brain wo con Ordering provider: Karla Henderson PA-C History: 79 years Male with . head injury . Comparison: April 17, 2023 Technique: CT of the head without contrast. Radiation reduction technique utilized.The dose-length product was 681 mGy-cm. FINDINGS: BRAIN PARENCHYMA AND CSF SPACES: Mild leukoaraiosis and diffuse cortical atrophy. Mild atheromatous d isease. No midline shift, mass effect or hemorrhage. The brain parenchyma and CSF spaces are otherwi se normal. VISUALIZED PARANASAL SINUSES: Left maxillary sinus disease. MASTOIDS: Bilateral mastoid air cells effusion. Fluid is also seen in the left middle ear. BONES: The bones appear intact. SOFT TISSUES: Visualized nasopharynx is normal. Superficial soft tissues are normal. IMPRESSION: No acute intracranial findings. Reviewed, dictated and finalized at location A.
--- NOTE | ~2024-12-01 | XR_ITS ---
SINGLE AP VIEW PELVIS Ordering provider: Karla Henderson PA-C History: . fall, pain . Comparison: None. FINDINGS: BONES: No definite acute fracture or dislocation. Lucency is seen over the left femoral neck. Evaluat ion for tenderness and if clinically warranted CT is advised. HIP JOINT SPACES: Bilateral hip joint severe narrowing. SACROILIAC JOINT SPACES/LUMBAR SPINE: The sacroiliac joint spaces are normal. Mild degenerative alegria es of the visualized lower lumbar spine. PUBIC SYMPHYSIS: Normal. SOFT TISSUES: Normal. IMPRESSION: No definite acute osseous abnormality pelvis. Lucency over the left femoral neck which may be summati on shadow. Evaluation for tenderness and if clinically warranted CT is advised. Reviewed, dictated and finalized at location A. IMPRESSION: No definite acute osseous abnormality pelvis. Lucency over the left femoral nec k which may be summation shadow. Evaluation for tenderness and if clinically wa rranted CT is advised.
--- NOTE | ~2024-12-01 | XR_ITS ---
CHEST RADIOGRAPH, PA AND LATERAL CLINICAL HISTORY: fall, sob . COMPARISON: 05/26/2024 TECHNIQUE: PA and lateral views of the chest. FINDINGS The cardiomediastinal silhouette is enlarged, unchanged. Elevation of the right hemidiaphragm with adjacent compressive atelectasis. Moderate right-sided pleural effusion is also noted. The remainder of the lungs are clear.. IMPRESSION: Elevation of the right hemidiaphragm with adjacent compressive atelectasis and a moderate right-sided pleural effusion. Reviewed, dictated and finalized at location A.
--- NOTE | ~2024-12-01 | XR_ITS ---
XR knee RT min 4V Ordering provider: Karla Henderson PA-C History: . right knee pain, fall . Comparison: None. FINDINGS: BONES: No acute fracture or dislocation. JOINT SPACES: Normal. SOFT TISSUES: Normal. Atherosclerotic changes. IMPRESSION: No acute osseous abnormality right knee. Reviewed, dictated and finalized at location A.
[2024-12-01 09:48] VITALS: BP 130/88; PULSE 74; RESP 20; TEMP 36.3; O2SAT 92
[2024-12-01 10:19] VITALS: BP 106/78; PULSE 75; RESP 14; O2SAT 97
--- NOTE | 2024-12-01 10:29 | ED_ITS ---
HPI - Fall General Chief Complaint: Fall Stated Complaint: fall, R knee pain Time Seen by Provider: 12/01/24 10:17 Source: patient Mode of arrival: wheelchair Limitations: no limitations History of Present Illness HPI Narrative: This is a 79-year-old male that presents to the emergency department after a fall 2 days ago with right knee pain. Reports he was trying to get his motorized wheelchair up on a ramp. He lost his balance and fell into his left side. He twisted his right knee. He did hit his head. He did not lose consciousness. He is on blood thinners. Reports pain to the right knee, unable to ambulate due to this. Denies decreased range of motion, numbness, vision changes, vomiting. Related Data Home Medications ?Medication ?Instructions ?Recorded ?Confirmed ?Last Taken ?Type bupropion HCl 100 mg tablet,12 hr 100 mg PO DAILY 05/24/24 11/20/24 Unknown History sustained-release linaclotide 290 mcg capsule 290 mcg PO QAM 08/10/24 11/20/24 Unknown History (Linzess) Allergies Allergy/AdvReac Type Severity Reaction Status Date / Time amiodarone Allergy Unknown Swelling Verified 11/20/24 07:31 iodine Allergy Unknown Rash Verified 11/20/24 07:31 naproxen Allergy Unknown Hives Verified 11/20/24 07:31 Contrast Media Allergy Unknown Unknown Uncoded 11/20/24 07:31 shell fish Allergy Unknown urticaria Uncoded 11/20/24 07:31 Review of Systems Review of Systems: CONSTITUTIONAL: Denies fever EYES: Denies visual changes GASTROINTESTINAL: Denies vomiting MUSCULOSKELETAL: Reports joint pain, and myalgia. NEUROLOGIC: Denies numbness, or weakness. All systems reviewed & are unremarkable except as noted in HPI and below [facility] Past Medical History Medical History (Updated 12/01/24 @ 12:24 by Karla Henderson PA-C) DONITA (obstructive sleep apnea) Chronic respiratory failure with hypoxia, on home oxygen therapy Depression Obstructive sleep apnea Diastolic dysfunction Insulin dependent type 2 diabetes mellitus Benign prostatic hyperplasia Chronic anticoagulation Paroxysmal atrial fibrillation Vitiligo Elevated antinuclear antibody (NATALIE) level Obesity hypoventilation syndrome Inflammatory arthropathy Restrictive lung disease secondary to obesity Generalized osteoarthritis of multiple sites Kidney stone Surgical History Surgical History History of cataract extraction with lens replacement History of cardiac radiofrequency ablation (RFA) History of back surgery Family History Family History Father Patient's father is Sibling Patient's sister is Mother Family history of Alzheimer's disease Social History Social History Social History: Surrogate medical decision maker: Yarely Fox. Code status: Full code. Smoking status: Never smoker Second hand tobacco smoke exposure: No Alcohol intake: never Substance use: never Substance use type: does not use Do You Feel Safe in your Home?: Yes Lack of Transportation: No Lack of Food: Never True Current Housing: I Have Housing Concerned About Future Housing: No Difficulty Paying Gas/Electric Bills: No Difficulty Paying for Meds: No Currently Unemployed: No Education: Grade School Difficulty w/ Childcare or Family Care: No Living arrangements: with family Additional living arrangements comments: Lives with spouse in [place]. They have 2 sons. 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 Spiritual care concerns: No Exam Narrative: GENERAL: Elderly, well-nourished, and in no acute distress. HEAD: Normocephalic, atraumatic. EYES: PERRLA and EOMI. ENT: Nares clear, no rhinorrhea or epistaxis. Mucous membranes moist. Oropharynx without tonsillar hypertrophy exudate or other lesions. Bilateral TMs pearly miles non-bulging NECK: Supple. No adenopathy or masses. CHEST: Clear to auscultation. No respiratory distress. No wheezes rales or rhonchi HEART: Regular rate and rhythm. No murmur heard. Normal peripheral pulses. EXTREMITIES: Normal range of motion. No edema or obvious deformity. SKIN: Warm, dry, no rash. NEURO: No focal deficits. Alert and oriented x3. CN II-XII grossly intact PSYCH: Normal mood and affect Course Vital Signs Vital signs: Vital Signs Temperature 97.3 F L 12/01/24 09:48 Pulse Rate 74 12/01/24 09:48 Respiratory Rate 20 12/01/24 09:48 Blood Pressure 130/88 12/01/24 09:48 Pulse Oximetry 92 12/01/24 09:48 Temperature 97.3 F L 12/01/24 09:48 Pulse Rate 71 12/01/24 11:07 Respiratory Rate 18 12/01/24 11:07 Blood Pressure 129/84 12/01/24 11:07 Pulse Oximetry 98 12/01/24 11:07 MDM - Fall MDM Narrative Medical decision making narrative: Patient presents to the emergency department after a fall 2 days ago with right knee pain as well as head injury. Patient is afebrile and nontoxic appearing. His vitals are stable. CT brain without acute findings. Right knee x-ray without acute osseous abnormalities. Pelvic x-ray is without acute definite osseous abnormalities. Lucency noted over the left femoral neck which may just be shadowing. Patient does not wish to have any further imaging to evaluate this. Patient noted to have a right pleural effusion with compressive atelectasis, this appears to be chronic for him. He does not endorse any shortness of breath and oxygen saturation is stable on his 6 L he wears chronically. Patient updated on his workup and agrees with plan of care. Instructed to follow-up with orthopedics for further evaluation of his knee. He was given warnings to return to the ER Differential Diagnosis Differential diagnosis: Likely other (Knee sprain, contusion, hip fracture, pelvic fracture, concussion, subdural hematoma) Imaging Data Radiologist's impression: ITS Impressions Head CT 12/01/24 10:40 IMPRESSION: No acute intracranial findings. Knee X-Ray 12/01/24 11:05 IMPRESSION: No acute osseous abnormality right knee. Pelvis X-Ray 12/01/24 11:07 IMPRESSION: No definite acute osseous abnormality pelvis. Lucency over the left femoral neck which may be summation shadow. Evaluation for tenderness and if clinically warranted CT is advised. Chest X-Ray 12/01/24 11:10 IMPRESSION: Elevation of the right hemidiaphragm with adjacent compressive atelectasis and a moderate right-sided pleural effusion. Discharge Plan Discharge Clinical Impression: Right knee sprain, Fall, Head injury Patient Disposition: Home, Self-Care Condition: Stable Instructions: Knee Sprain (ED), Head Injury (ED) Additional Instructions: Return to the ER if you experience fever, chest pain, shortness of breath, redness and swelling of your extremity, numbness or any other symptoms that are concerning to you Wear KAN wrap. No weight on the affected leg until able to bear weight without pain. Ice and elevate extremity. Pain medication as needed and directed. Follow up with orthopedics for further care. Patient Language: Sami Prescriptions: No Action Breztri Aerosphere 160-9-4.8 mcg/actuation HFA aerosol inhaler 2 inh inhalation BID Qty: 10.7 0RF Linzess 290 mcg capsule 290 mcg PO QAM naloxone [Narcan] 4 mg/actuation spray,non-aerosol 4 mg intranasal Q3M PRN (Reason: opioid overdose) Qty: 2 0RF Rx Instructions: spray 1 dose into ONE nostril; alternate nostrils w each dose until help arrives ipratropium-albuterol 0.5 mg-3 mg(2.5 mg base)/3 mL solution for nebulization 3 ml inhalation QID PRN (Reason: shortness of breath) Qty: 90 0RF bupropion HCl 100 mg tablet sustained-release 12 hr 100 mg PO DAILY diltiazem HCl 240 mg capsule,extended release 24hr See Rx Instructions .ROUTE .COMPLEX Qty: 90 2RF Dose Instruction: TAKE 1 CAPSULE BY MOUTH EVERY DAY Rx Instructions: TAKE 1 CAPSULE BY MOUTH EVERY DAY tamsulosin 0.4 mg capsule See Rx Instructions .ROUTE .COMPLEX Qty: 180 1RF Dose Instruction: TAKE 1 CAPSULE BY MOUTH TWICE A DAY Rx Instructions: TAKE 1 CAPSULE BY MOUTH TWICE A DAY (DME) pen needle, diabetic [BD Ultra-Fine Short Pen Needle] 31 gauge x 5/16 needle See Rx Instructions .ROUTE .COMPLEX Qty: 100 4RF Dose Instruction: USE TO INJECT INSULIN 3 TIMES A DAY Rx Instructions: USE TO INJECT INSULIN 3 TIMES A DAY paroxetine HCl 20 mg tablet See Rx Instructions .ROUTE .COMPLEX Qty: 90 2RF Dose Instruction: TAKE 1 TABLET BY MOUTH EVERY DAY Rx Instructions: TAKE 1 TABLET BY MOUTH EVERY DAY Eliquis 5 mg tablet See Rx Instructions .ROUTE .COMPLEX Qty: 180 1RF Dose Instruction: TAKE 1 TABLET (5 MG) BY MOUTH EVERY 12 HOURS Rx Instructions: TAKE 1 TABLET (5 MG) BY MOUTH EVERY 12 HOURS metformin 500 mg tablet 500 mg PO BID Qty: 180 3RF finasteride 5 mg tablet See Rx Instructions .ROUTE .COMPLEX Qty: 100 1RF Dose Instruction: TAKE 1 TABLET BY MOUTH EVERY DAY Rx Instructions: TAKE 1 TABLET BY MOUTH EVERY DAY omeprazole 40 mg capsule,delayed release(DR/EC) See Rx Instructions .ROUTE .COMPLEX Qty: 90 1RF Dose Instruction: TAKE 1 CAPSULE BY MOUTH EVERY DAY Rx Instructions: TAKE 1 CAPSULE BY MOUTH EVERY DAY insulin glargine [Lantus Solostar U-100 Insulin] 100 unit/mL (3 mL) insulin pen See Rx Instructions .ROUTE .COMPLEX Qty: 15 2RF Dose Instruction: INJECT 60 UNITS UNDER THE SKIN ONCE DAILY Rx Instructions: INJECT 60 UNITS UNDER THE SKIN ONCE DAILY oxycodone-acetaminophen 5-325 mg tablet 1 tablet PO Q6H PRN (Reason: pain) Qty: 120 0RF spironolactone 25 mg tablet 25 mg PO DAILY Qty: 90 1RF atorvastatin 20 mg tablet 20 mg PO DAILY Qty: 90 1RF Ozempic 1 mg/dose (4 mg/3 mL) pen injector See Rx Instructions .ROUTE .COMPLEX Qty: 3 0RF Dose Instruction: 1 MG (0.75 ML) SUBCUTANEOUSLY WEEKLY Rx Instructions: 1 MG (0.75 ML) SUBCUTANEOUSLY WEEKLY sotalol 80 mg tablet 80 mg PO BID Qty: 180 1RF Follow-up/Referrals: Zane Levine MD [Primary Care Provider] - Gus Tavares MD [Physician] -
--- OUTSIDE RECORDS SUMMARY | 2024-12-01 10:56 | XMS_ITS | Referral Summary ---
Author Organization [facility] Address [address] [place] [address] Care Team Providers Care Mine Boss Name Role Phone Roselyn Samson MD Primary Care Provider Allergies Active Allergy Reactions Criticality Noted Date Comments Amiodarone Swelling Medium 02/11/2016 Iodinated Contrast Media Unknown,Hives Medium 02/11/20 16 Iodine (Bulk) Hives,Swelling Medium 05/03/2015 Naproxen Swelling Medium 05/10/2015 Shellfish Containing Products Urticaria Medium 2019 Medications dilTIAZem XR (CARDIZEM CD,DILACOR XR) 240 mg 24 hr capsule Take 1 capsule (240 mg total) by mouth daily Active apixaban (ELIQUIS) 2.5 mg tablet Take 2 tablets (5 mg total) by mouth 2 times daily Active finasteride (PROSCAR) 5 mg tablet Take 1 tablet (5 mg total) by mouth daily 5 Active omeprazole (PriLOSEC) 20 mg capsule Take 2 capsules (40 mg total) by mouth daily Active oxyCODONE-acetam inophen (PERCOCET) 5-325 mg per tabletIndication s:Pain Take 1 tablet by mouth every 6 hours Active sotaloL (BETAPACE) 80 mg tablet Take 1 tablet (80 mg total) by mouth 2 times daily Active tamsulosin (FLOMAX) 0.4 mg extended release capsule Take 1 capsule (0.4 mg total) by mouth nightly Active exenatide microspheres (BYDUREON BCISE SUBQ) Inject 5-325 mg under the skin once a week FRIDAYS Active atorvastatin (LIPITOR) 20 mg tablet Take 1 tablet (20 mg total) by mouth daily 0 Active metFORMIN (GLUCOPHAGE) 500 mg tablet Take 1 tablet (500 mg total) by mouth 2 (two) times a day 5 Active Basaglar KwikPen U-100 Insulin 100 unit/mL (3 mL) insulin pen Inject 60 Units under the skin daily 0 Active fluticasone/umec lidin/vilanter (TRELEGY ELLIPTA INHAL) Inhale 2 Inhalation daily Active PARoxetine (PAXIL) 20 mg tablet Take 1 tablet (20 mg total) by mouth every morning 1 Active buPROPion SR (WELLBUTRIN SR) 100 mg 12 hr tablet bupropion HCl SR 100 mg tablet,12 hr sustained-relea se Active diphenhydrAMINE (BENADRYL) 25 mg capsule Take 2 tablets 1 hr prior to procedure 2 tablet/capsu le 4 Active Additional Information Patient not taking.Reported on 06/20/2024 torsemide (DEMADEX) 20 mg tablet Take 1 tablet (20 mg total) by mouth every morning 4 Active spironolactone (ALDACTONE) 25 mg tablet Take 1 tablet (25 mg total) by mouth daily 4 Active Active Problems Problem Noted Date Diagnosed Date Preoperative cardiovascular examination 08/24/20 21 Nephrolithiasis 04/19/2021 Overview (04/19/2021): Added automatically from request for surgery [id number] Chronic diastolic heart failure 08/06/2020 Essential hypertension 05/10/2015 Dyslipidemia 05/10/2015 Atrial fibrillation 05/10/2015 Shortness of breath 12/24/2014 Immunizations Immunization Administration Dates Next Due Influenza, Trivalent, High D ose, Split, Preservative Free, Intramuscular 06/20/2019 Influenza, Trivalent, Split, Preservative Free, Intradermal 07/23/2012 Influenza, Unspecified 06/18/2019 Social History Tobacco Use Types Packs/Day Years Used Date Smoking Tobacco: Never Smokeless Tobacco: Never Tobacco Cessation:Counseling Given: Not Answered AUDIT-C Answer Date Recorded Q1: How often do you have a drink containing alc ohol? 2-3 times a week 04/26/2021 Q2: How many drinks containi ng alcohol do you have on a typical day when you are drinking? 1 or 2 04/26/2021 Q3: How often do you have si x or more drinks on one occasion? Never 04/26/2021 Sex and Gender Information Value Date Recorded Sex Assigned at Not on file Legal Sex Male 11:36 AM RESHIPPING CLERK Gender Identity Male 09/22/2020 12:54 PM RESHIPPING CLERK Sexual Orientation Not on file Last Filed Vital Signs Vital Sign Reading Time Taken Comments Blood Pressure 97/56 06/20/2024 11:23 AM CDT Pulse 71 06/20/2024 11:23 AM CDT Temperature 36.2 C (97.1 F) 04/26/2021 1:20 PM CDT Respiratory Rate 16 04/26/2021 1:38 PM CDT Oxygen Saturation 92% 06/20/2024 11:23 AM CDT Inhaled Oxygen Concentration - - Weight 145.2 kg (320 lb) 06/20/2024 11:23 AM CDT Height 175.3 cm (5' 9 ) 06/20/2024 11:23 AM CDT Body Mass Index 47.26 06/20/2024 11:23 AM CDT Plan of Treatment Not on file Medical Devices Explanted Type Area Sorter Pricer Device Identifier Shelf Expiration Date Model / Serial / Lot [employer] [id number] Universa 6fr 24cm [employer] Tether - [id number] Implanted:Qty: 1 on 04/26/2021 by Norman Coon MD at [facility] Explanted:Qty: 1 on 05/05/2021 by Charlotte Esparza NP Stent Right: Ureter [employer] [id number] 12/24/2023 [id number] / / [id number] [employer] [id number] Universa 6fr 24cm [employer] Tether - [id number] Implanted:Qty: 1 on 04/26/2021 by Norman Coon MD at [facility] Explanted:Qty: 1 on 05/05/2021 by Charlotte Esparza NP Stent Left: Ureter [employer] [id number] 10/25/2023 [id number] / / [id number] Procedures Procedure Name Priority Date/Time Associated Diagnosis Comments EGFR Routine 08/30/2022 11:03 AM RESHIPPING CLERK Essential hypertension Dyslipidemia Paroxysmal atrial fibrillation (HCC) Chronic diastolic heart failure (HCC) Obstructive sleep apnea Type 2 diabetes mellitus without complication, with long-term current use of insulin (HCC) HEMOGLOBIN A1C Routine 08/30/2022 11:03 AM RESHIPPING CLERK Essential hypertension Dyslipidemia Paroxysmal atrial fibrillation (HCC) Chronic diastolic heart failure (HCC) Obstructive sleep apnea Type 2 diabetes mellitus without complication, with long-term current use of insulin (HCC) LIPID PANEL Routine 08/30/2022 11:03 AM RESHIPPING CLERK Essential hypertension Dyslipidemia Paroxysmal atrial fibrillation (HCC) Chronic diastolic heart failure (HCC) Obstructive sleep apnea Type 2 diabetes mellitus without complication, with long-term current use of insulin (HCC) from Last 3 Months or Most Recently Relevant to Health Maintenance Results * eGFR (08/30/2022 11:03 AM RESHIPPING CLERK) eGFR 79 mL/min/1. 73 m2 LOW BROWN Comment: Interpretive Data Reference Interval Normal >/= 90 mL/min/1.73m2 Mildly decreased* 60 - 89 mL/min/1.73m2 Mildly to moderately decreased 45 - 59 mL/min/1.73m2 Moderately to severely decreased 30 - 44 mL/min/1.73m2 Severely decreased 15 - 29 mL/min/1.73m2 Kidney Failure < 15 mL/min/1.73m2 *Relative to young adult level Estimated glomerular filtration rate is determined by the 2020 CKD-EPI equation recommended by the National Kidney Foundation (A Unifying Approach to GFR Estimation: Recommendations of the NKF-ASK Task Force on Reassessing the Inclusion of Race in Diagnosing Kidney Disease, JASN 202). The CKD-EPI equation should not be used for patients with unstable renal function and has not been validated in children and those over 70. Current interpretive data was last reviewed 2021. Blood 08/30/2022 11:0 3 AM RESHIPPING CLERK 08/30/2022 12:10 PM RESHIPPING CLERK Allen Langston MD LAB BLOOD ORDERABLES Final R esult Performing Organization Address [facility] de Phone Number LOW [facility] [id number] [facility] [place] [address] * (ABNORMAL) Hemoglobin A1c (08/30/2022 11:03 AM RESHIPPING CLERK) Hgb A1C 6.6(H) 4.0 - 5.6 % LOW [facility]OWN Estimated Average Glucose 143 mg/dL LOW [facility] Comment: The ADA recommends reporting an estimated Average Glucose (eAG) with all Hemoglobin A1c results using the equation derived from a study of 507 normal and diabetic adults. Minority populations were underrepresented and children were not included. (Diabetes Care 31:4281-6655, 2008). The eAG is not equivalent to a fasting glucose. Blood 08/30/2022 11:0 3 AM RESHIPPING CLERK 08/30/2022 12:10 PM RESHIPPING CLERK Allen Langston MD LAB BLOOD ORDERABLES Final R esult Performing Organization Address [facility] de Phone Number LOW [facility] [address] [facility] [place] [address] * (ABNORMAL) Lipid panel (08/30/2022 11:03 AM RESHIPPING CLERK) Cholesterol 137 30 - 199 mg/dL LOW BROWN Comment: Interpretive Data Ages < or = 19 years Acceptable: <170 mg/dL Borderline high: 170-199 mg/dL High: >or= 200 mg/dL Ages > or = 20 years Desirable: <200 mg/dL Borderline high: 200-239 mg/dL High: >or= 240 mg/dL Literature References: 1. Expert Panel on Integrated Guidelines for Cardiovascular Health and Risk Reduction in Children and Adolescents. Pediatrics 2011;128:S213 2. NCEP Expert Panel. Circulation 2004;110:227 Current Interpretive Data was last revised on 2018. Triglycerides 184(H) <=149 mg/dL LOW BROWN Comment: Interpretive Data Ages < or = 9 years Acceptable: <75 mg/dL Borderline high: 75-99 mg/dL High: >or= 100 mg/dL Ages 10 to 20 years Acceptable: <90 mg/dL Borderline high: 90-129 mg/dL High: >or= 130 mg/dL Ages > or = 20 years Desirable: <150 mg/dL Borderline high: 150-199 mg/dL High: 200-499 mg/dL Very high: >or= 499 mg/dL Literature References: 1. Expert Panel on Integrated Guidelines for Cardiovascular Health and Risk Reduction in Children and Adolescents. Pediatrics 2011;128:S213 2. NCEP Expert Panel. Circulation 2004;110:227 Current Interpretive Data was last revised on 2018. HDL 42 >=40 mg/dL LOW BROWN Comment: Interpretive Data Ages < or = 19 years Acceptable: >45 mg/dL Borderline low: 40-45 mg/dL Low: <40 mg/dL Ages > or = 20 years Desirable: >or= 60 mg/dL Low: <40 mg/dL Literature References: 1. Expert Panel on Integrated Guidelines for Cardiovascular Health and Risk Reduction in Children and Adolescents. Pediatrics 2011;128:S213 2. NCEP Expert Panel. Circulation 2004;110:227 Current Interpretive Data was last revised on 2018. LDL, calculated 58 <=129 mg/dL LOW BROWN Comment: Interpretive Data Ages < or = 19 years Acceptable: <110 mg/dL Borderline high: 110-129 mg/dL High: >or= 130 mg/dL Ages > or = 20 years Optimal: <100 mg/dL Near optimal: 100-129 mg/dL Borderline high: 130-159 mg/dL High: >160 mg/dL Literature References: 1. Expert Panel on Integrated Guidelines for Cardiovascular Health and Risk Reduction in Children and Adolescents. Pediatrics 2011;128:S213 2. NCEP Expert Panel. Circulation 2004;110:227 Current Interpretive Data was last revised on 2018. Non-HDL Cholesterol 95 mg/dL LOW BROWN Comment: Interpretive Data Ages < or = 19 years Acceptable: <120 mg/dL Borderline high: 120-144 mg/dL High: >145 mg/dL Ages > or = 20 years When triglycerides are >200 mg/dL, Non-HDL cholesterol is a secondary target of therapy with treatment goals that are 30 mg/dL greater than the LDL cholesterol target. Literature References: 1. Expert Panel on Integrated Guidelines for Cardiovascular Health and Risk Reduction in Children and Adolescents. Pediatrics 2011;128:S213 2. NCEP Expert Panel. Circulation 2004;110:227 Current Interpretive Data was last revised on 2018. Chol/HDL ratio 3 LOW [facility] Blood 08/30/2022 11:0 3 AM RESHIPPING CLERK 08/30/2022 12:10 PM RESHIPPING CLERK Allen Langston MD LAB BLOOD ORDERABLES Final R esult LOW [facility] [id number] [facility]. [place] [address] from Last 3 Months or Most Recently Relevant to Health Maintenance Insurance MEDICARE [facility] MEDICARE [facility] MEDICARE [facility] Care Teams Mine Boss Relationship Specialty Start Date End Date Roselyn Samson MD [address] [place] [address] PCP - General Family Medicine 02/04/21
--- OUTSIDE RECORDS SUMMARY | 2024-12-01 10:56 | XMS_ITS | CONTINUITY OF CARE DOCUMENT ---
Author Name derrick, derrick Address Unknown Organization [facility] Address [address] [address] [place] [address] Phone [phone] Care Team Providers Care Scratcher Name Role Phone Jonny HORN, Levon Unavailable [phone] RADHA ARREOLA MD Unavailable [phone] RADHA ARREOLA MD Unavailable [phone] PROBLEMS Condition Status Date Provider Notes Atrial flutter, paroxysmal s /p ablation. On Eliquis active Tay Conley MD Obesity active Jovanni Billingsley MD HTN controlled;nml renal angio 15 active Bert Billingsley MD Hypercholesterolemia;good on rx active Terrance Billingsley MD BACK PAIN;chronic has had surgery active Bert Billingsley MD Diabetes mellitus active Jovanni Billingsley MD Sleep apnea;await study active Jovanni hodges MD CAD;40% rca 15 active Jovanni Billingsley MD Cardiomyopathy;ef 35% 15 by cath active Mitch Billingsley MD CHF active Jovanni Billingsley MD Gallstones active Jovanni Billingsley MD r/o Pulmonary embolism and infarction;pos ddimer,neg ct active Jovanni Billingsley MD fatty liver active Jovanni Billingsley MD Epistaxis;at home will stop aspein active H vita Billingsley MD Shortness of breath active Tay franco MD ENCOUNTERS Date Type Provider Location Encounter Diag nosis - In-person encounter Office Visit Kash Balderrama MD [facility] - In-person encounter Office Visit Tay Conley MD [facility] - In-person encounter Office Visit Tay Conley MD [facility] Atrial flutter, paroxysmal s/p ablation. On Eliquis - In-person encounter Office Visit Tay Conley MD [facility] - In-person encounter Office Visit Tay Conley MD [facility] Shortness of breath - In-person encounter Office Visit Jovanni Billingsley MD [facility] Atrial flutter, paroxysmal s/p ablation. On EliquisObesityHTN controlled;nml renal angio 15Hypercholesterolemia;g ood on rxBACK PAIN;chronic has had surgeryDiabetes mellitusSleep apnea;await studyCAD;40% rca 15Cardiomyopathy;ef 35% 15 by cathCHFGallstonesr/o Pulmonary embolism and infarction;pos ddimer,neg ctfatty liverEpistaxis;at home will stop aspein VITAL SIGNS Date Observation Value Provider blood pressure, diastolic 73 mm[Hg] Neno Sinha blood pressure, systolic 126 mm[Hg] Clara Sinha Body Mass Index (Ratio) 41.43 kg/m2 Laina Sinha pulse rate 79 /min Juan sanchez oxygen saturation, oximetry 91 % Juan Sinha respiratory rate E&M 20 /min John Sinha weight E&M 280.6 [lb_av] Juan doshi Body Mass Index (Ratio) 40.16 kg/m2 Anea larry Irwin blood pressure, diastolic 72 mm[Hg] An eatris Irwin blood pressure, systolic 102 mm[Hg] Ane atris Irwin pulse rate 67 /min Aneatris Irwin oxygen saturation, oximetry 95 % Aneatris Brown respiratory rate E&M 17 /min Aneatri s Brown weight E&M 272 [lb_av] Aneatris Brown blood pressure, diastolic 67 mm[Hg] Me davis Hong blood pressure, systolic 132 mm[Hg] Larissa irley Hong Body Mass Index (Ratio) 42.38 kg/m2 Ruma evans Hong pulse rate 64 /min Amberly Hong oxygen saturation, oximetry 97 % Amberly Hong respiratory rate E&M 17 /min Amberly Hong weight E&M 287 [lb_av] Amberly Hong Body Mass Index (Ratio) 43.26 kg/m2 Meadows i Nava blood pressure, diastolic 72 mm[Hg] Ke rri Nava blood pressure, systolic 118 mm[Hg] Tori ri Nava pulse rate 72 /min Caron Ros [facility] oxygen saturation, oximetry 93 % Caron Vick respiratory rate E&M 20 /min Caron Flaco maharaj weight E&M 293 [lb_av] Caron Ros er Body Mass Index (Ratio) 42.53 kg/m2 Anea larry Irwin blood pressure, diastolic 64 mm[Hg] An eatris Brown blood pressure, systolic 114 mm[Hg] Ane atris Brown pulse rate 62 /min Aneatris Brown oxygen saturation, oximetry 95 % Aneatris Brown respiratory rate E&M 17 /min Aneatri s Brown weight E&M 288 [lb_av] Aneatris Brown Body Mass Index (Ratio) 41.79 kg/m2 Anea larry Brown blood pressure, diastolic 83 mm[Hg] An eatris Brown blood pressure, systolic 128 mm[Hg] Jeannie atrisalvador Gayle pulse rate 60 /min Jeannieatris Irwin oxygen saturation, oximetry 96 % Jeannieatris Irwin respiratory rate E&M 20 /min Ramonitai salvador Gayle weight E&M 283 [lb_av] Aneatrulysses Gayle height E&M 69 [in_i] Obdulia Gayle ALLERGIES Allergy Name Onset Date Reaction Criticality Status IVP DYE High Criticality active IODINE High Criticality active ALEVE High Criticality active RESULTS Date Observation Value Provider Reference Range Interpretation Location coagulation managed by Mario Rodriguez RN international normalized ratio (INR) 1.1 Mario Rodriguez RN Normal international normalized ratio (INR) 1.1 Caron Vick Normal prothrombin time (patient) 12.7 s Caron Nava coagulation managed by Mario Rodriguez RN international normalized ratio (INR) 1.2 Mario Rodriguez RN Normal coagulation managed by Mario Rodriguez RN international normalized ratio (INR) 1.2 Caron Vick Normal prothrombin time (patient) 14.7 s Caron Nava coagulation managed by Mario Rodriguez RN international normalized ratio (INR) 1.4 Mario Rodriguez RN Normal HISTORY OF MEDICATION USE Medication Status Instructions Dates Provider Indications Com parker AUGUSTINE CD 240 MG ORAL CAPSULE EXTENDED RELEASE 24 HOUR active one tablet daily María Rolon OXYCONTIN 10 MG ORAL TABLET ER 12 HOUR ABUSE-DETERRENT completed 1 TAB TWICE DAILY - Juan Sinha DIVALPROEX SODIUM 500 MG ORAL TABLET DELAYED RELEASE active 1 TAB TWICE DAILY Obdulia Gayle SOTALOL HCL 80 MG ORAL TABLET active ONE TAB. TWICE DAILY Tay Conley MD SPIRONOLACTONE 25 MG ORAL TABLET completed ONE TAB. DAILY - Caron Vick ELIQUIS 5 MG ORAL TABLET active one tablet twice daily Tay Conley MD TAMSULOSIN HCL 0.4 MG ORAL CAPSULE active 1 tab daily Obdulia Gayle COUMADIN 1 MG ORAL TABLET completed one tab daily with 5mg = 6mg daily - Jovanni Billingsley MD GLYBURIDE 2.5 MG ORAL TABLET active one tab twice daily Tay Conley MD OXYCONTIN 10 MG ORAL TABLET ER 12 HOUR ABUSE-DETERRENT active one tab every 12 hrs Tay Conley MD ZOCOR 10 MG ORAL TABLET active take one pill a day Tay Conley MD OXYCODONE-ACETAM INOPHEN 5-325 MG ORAL TABLET active every 6 hrs as needed Tay Conley MD METOPROLOL TARTRATE 25 MG ORAL TABLET completed one tab daily - Tay Conley MD ASPIRIN 81 MG ORAL TABLET completed ONE TAB. DAILY - Jovanni Billingsley MD per hosp d/c med list METFORMIN HCL 500 MG ORAL TABLET active two twice a day Laina Oregonia TIANNA LAMICTAL 100 MG ORAL TABLET completed 2 tabs twice daily - Caron Vick OMEPRAZOLE 40 MG ORAL CAPSULE DELAYED RELEASE active one tab daily Tay Conley MD WARFARIN SODIUM 5 MG ORAL TABLET completed 2 tabs TOAY ONLY ( 12/10/14) then one tab at 5 pm daily - Jovanni Billingsley MD per hosp d/c med list DILTIAZEM HCL ER 180 MG ORAL CAPSULE EXTENDED RELEASE 24 HOUR completed one tab daily - María Rolon LISINOPRIL 2.5 MG ORAL TABLET completed ONE TAB. DAILY - Tay Conley MD LISINOPRIL 10 MG ORAL TABLET completed ONE TAB. DAILY - Obdulia Gayle per hosp d/c med list i n place of lisinopril 20/12.5mg LASIX 40 MG ORAL TABLET active 1/2 tab daily Abbey Cabello NP SOCIAL HISTORY Date Observation Value Provider smoking status Never smoker Juan Armendariz social history E&M Patient has n ever smoked. Smoking History: P jose antonio has never smoked. Tay Conley MD social history reviewed E&M revi ewed - no changes required Tay Conley MD smoking status Never smoker Tay renae MD social history reviewed E&M revi ewed - no changes required Tay Conley MD smoking status Never smoker Amberly Neema wood social history reviewed E&M revi ewed - no changes required Tay Conley MD social history E&M Patient has n ever smoked. Smoking History: P jose antonio has never smoked. Tay Conley MD social history reviewed E&M revi ewed - no changes required Tay Conley MD smoking status Never smoker Tay renae MD social history reviewed E&M revi ewed - no changes required Jovanni Billingsley MD smoking status Never smoker Obdulia wood FAMILY HISTORY Family Member Condition Father Family History of Moreno dden Cardiac : Mother Negative FH of Diabe jerman, Hypertension, or Coronary Artery Disease Full Sister Family History Breas t Cancer: INSURANCE PROVIDERS Payer name Policy type / Coverage type [place] red libertarian ID [employer] [place] insurance company [id number] [place] MED[place] Medicare [id number] TREATMENT PLAN Date Name Performer FOLLOW UP faxed 02/05 0910: H is updated medication list for this problem includes: Sotalol Hcl 80 Mg Tabs (Sotalol hcl) ..... One tab. twice daily Diltiazem Hcl Er 180 Mg Oral [id number] (Diltiazem hcl) ..... One tab daily Lasix 40 Mg Tabs (Furosemide) ..... One tab daily Orders: C omplete Echo ([id number]) Tay Conley MD FOLLOW UP faxed 02/05 0910: H is updated medication list for this problem includes: Sotalol Hcl 80 Mg Tabs (Sotalol hcl) ..... One tab. twice daily Zocor 10 Mg Oral Tabs (Simvastatin) ..... Take one pill a day Diltiazem Hcl Er 180 Mg Oral [id number] (Diltiazem hcl) ..... One tab daily Tay Conley MD FOLLOW UP faxed 02/05 0910:In sinus rhythm today His updated medication list for this problem includes: Sotalol Hcl 80 Mg Tabs (Sotalol hcl) ..... One tab. twice daily Diltiazem Hcl Er 180 Mg Oral [id number] (Diltiazem hcl) ..... One tab daily Orders: C omplete Echo ([id number]) Tay Conley MD EP follow up: T he following medications were removed from the medication list: Metoprolol Tartrate 25 Mg Tabs (Metoprolol tartrate) ..... One tab daily His updated medication list for this problem includes: Sotalol Hcl 80 Mg Tabs (Sotalol hcl) ..... One tab. twice daily Zocor 10 Mg Oral Tabs (Simvastatin) ..... Take one pill a day Diltiazem Hcl Er 180 Mg Oral [id number] (Diltiazem hcl) ..... One tab daily Lisinopril 2.5 Mg Tabs (Lisinopril) ..... One tab. daily Tay Conley MD EP follow up: T he following medications were removed from the medication list: Metoprolol Tartrate 25 Mg Tabs (Metoprolol tartrate) ..... One tab daily His updated medication list for this problem includes: Sotalol Hcl 80 Mg Tabs (Sotalol hcl) ..... One tab. twice daily Diltiazem Hcl Er 180 Mg Oral [id number] (Diltiazem hcl) ..... One tab daily Lisinopril 2.5 Mg Tabs (Lisinopril) ..... One tab. daily Lasix 40 Mg Tabs (Furosemide) ..... One tab daily Tay Conley MD EP follow up: T he following medications were removed from the medication list: Metoprolol Tartrate 25 Mg Tabs (Metoprolol tartrate) ..... One tab daily His updated medication list for this problem includes: Sotalol Hcl 80 Mg Tabs (Sotalol hcl) ..... One tab. twice daily Diltiazem Hcl Er 180 Mg Oral [id number] (Diltiazem hcl) ..... One tab daily Lisinopril 2.5 Mg Tabs (Lisinopril) ..... One tab. daily Lasix 40 Mg Tabs (Furosemide) ..... One tab daily Tay Conley MD EP follow up: T he following medications were removed from the medication list: Metoprolol Tartrate 25 Mg Tabs (Metoprolol tartrate) ..... One tab daily His updated medication list for this problem includes: Sotalol Hcl 80 Mg Tabs (Sotalol hcl) ..... One tab. twice daily Diltiazem Hcl Er 180 Mg Oral [id number] (Diltiazem hcl) ..... One tab daily Lisinopril 2.5 Mg Tabs (Lisinopril) ..... One tab. daily Tay Conley MD Date Name Complete Echo COMPREHENSIVE METABO LIC PANEL W/EGFR Full PFT EP Study w/anesthesi a Venous Doppler Bilat eral LE Gallbladder Ultrasou nd Carotid Duplex Bilat eral Mobile Cardiac Tele Complete Echo HISTORY OF PROCEDURES Procedure Date Procedure Name Provider Procedure Notes S tatus EKG Kash Balderrama MD compl eted EKG Tay Conley MD comp leted EKG Tay Conley MD comp leted EKG Tay Conley MD comp leted EKG Tay Conley MD comp leted FRANCIS Billingsley MD complete d
--- OUTSIDE RECORDS SUMMARY | 2024-12-01 10:56 | XMS_ITS | Clinical Summary ---
Author Organization [facility] Address [address] [place] [address] Care Team Providers Care Health Occupations Instructor Name Role Phone Selvin Sen MD Primary Care Provider Allergies Active Allergy Reactions Criticality Noted Date Comments Iodine Hives,Rash Low 06/03/2020 Shellfish-Derived Products Hives 0 Medications apixaban (ELIQUIS) 2.5 MG tablet Take 2.5 mg by mouth 2 (two) times daily. 04/22/2019 Active atorvastatin 20 MG tablet Take 1 tablet by mouth nightly at bedtime. 05/10/2020 Active dilTIAZem CD 240 MG 24 hr capsule Take 240 mg by mouth every morning. 04/22/2019 Active vitamin D2, ergocalciferol, 31505 UNITS capsule Take 1 capsule by mouth daily. 03/10/2020 Active finasteride 5 MG tablet Take 5 mg by mouth every morning. 08/13/2015 Active FLUoxetine 40 MG capsule Take 1 capsule by mouth every morning. 05/27/2019 Active Fluticasone-Ume clidin-Vilant 100-62.5-25 MCG/INH AEROSOL POWDER, BREATH ACTIVATED Inhale 1 puff into the lungs daily. Active furosemide 40 MG tablet Take 1 tablet by mouth every morning. 03/22/2020 Active metFORMIN 500 MG tablet Take 1 tablet by mouth 2 (two) times a day. 05/10/2020 Active sotalol 80 MG tablet Take 80 mg by mouth 2 (two) times daily. 07/15/2019 Active tamsulosin 0.4 MG Cap Take 0.4 mg by mouth daily. 04/22/2019 Active traMADol 50 MG tablet Take 1 tablet by mouth daily. 05/25/2020 Active Exenatide ER (BYDUREON) 2 MG Pen-injector PEN Inject 2 mg into the skin daily. Active insulin glargine (LANTUS SOLOSTAR) 100 UNIT/ML injection (PEN) Inject 35 Units into the skin nightly at bedtime. Active methylPREDNISol one (MEDROL) 32 MG Tab 1 po QD [address], then repeat [address] 2 tablet 06/21/2020 Active diphenhydrAMINE 50 MG tablet 1 PO [address] scan 1 tablet 06/21/2020 Active Active Problems Problem Noted Date Diagnosed Date Pain of left lower extremity 06/03/2020 Social History Tobacco Use Types Packs/Day Years Used Date Smoking Tobacco: Never Smokeless Tobacco: Never Alcohol Use Standard Drinks/Week Comments Yes 4 (1 standard drink = 0.6 oz pur e alcohol) [employer] Sex and Gender Information Value Date Recorded Sex Assigned at Not on file Legal Sex Male 4:02 PM CDT Gender Identity Not on file Sexual Orientation Not on file Last Filed Vital Signs Vital Sign Reading Time Taken Comments Blood Pressure 140/70 06/03/2020 9:22 AM CDT Pulse 80 06/03/2020 9:22 AM CDT Temperature - - Respiratory Rate - - Oxygen Saturation - - Inhaled Oxygen Concentration - - Weight 140.6 kg (310 lb) 06/03/2020 9:2 2 AM CDT THIS IS PER THE PATIENT Height - - Body Mass Index - - Plan of Treatment Health Maintenance Due Date Last Done Comments Hepatitis C 1965 DTaP, Tdap and Td Vaccines ( 1 - Tdap) 1966 Zoster Vaccines (1 of 2) 1997 Annual Medicare Wellness Visit 2012 Pneumococcal Vaccine: 65+ Ye ars (1 of 1 - PCV) 2012 RSV Immunization or 60+ Years (1 - 1-dose 75+ series) 2022 COVID-19 Vaccine ( - 2023-2 5 season) 2024 Influenza Adult (#1) 2024 06/18/2019 Meningococcal B Vaccine Aged Out No l onger eligible based on patient's age to complete this topic Meningococcal Vaccine Aged Out No jake brad eligible based on patient's age to complete this topic RSV Immunizations Under 20 Months Aged Out No longer eligible based on patient's age to complete this topic Insurance MEDICARE [facility] MEDICARE Care Teams 

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
--- OUTSIDE RECORDS SUMMARY | 2024-12-01 10:56 | XMS_ITS | Clinical Summary ---
Author Organization [facility] Address [address] [facility] [place] [address] Care Team Providers Care Microsoft Systems Engineer Name Role Phone Koko Paulson MD Primary Care Provider [phone] Amberly Jin MD Unavailable [phone] Source Comments [facility],non-owned Affiliates and Associated Physician Practices is amultiple site organization consisting of ambulatory clinics and hospital sitesin [place], [place] and [place]. This disclosure is being madepursuant to the Care Everywhere program and may not contain all information available regarding this patient. Last updated 18.[facility] Allergies Active Allergy Reactions Criticality Noted Date Comments Amiodarone Swelling Medium 02/11/2016 Povidone Iodine Urticaria Medium 07/23/2019 Naproxen Swelling High 12/17/2014 Shellfish-Derived Products Urticaria Medium 0 Medications * Be aware that medications may not be up to date on this document. Alwaysverify current medications with the patient. Medication Sig Dispensed Refills Start Date End Date Status omeprazole (PRILOSEC) 40 MG capsule Take 1 capsule by mouth once daily 4 04/22/2019 Active dilTIAZem coated beads 24hr (CARDIZEM CD) 240 MG capsule Take 240 mg by mouth once daily 4 04/22/2019 Active sotalol (BETAPACE) 80 MG tablet Take 80 mg by mouth 2 times daily 5 07/15/2019 Active ELIQUIS 2.5 MG tablet Take 2.5 mg by mouth 2 times daily 3 04/22/2019 Active tamsulosin (FLOMAX) 0.4 MG capsule Take 0.4 mg by mouth once daily 6 04/22/2019 Active oxyCODONE-acetamin ophen (PERCOCET) 5-325 MG tablet Take 1 tablet by mouth every 6 hours as needed 0 06/26/2019 Active BYDUREON BCISE 2 MG/0.85ML AUIJ Inject 2 mg subcutaneously every 7 days 2 06/26/2019 Active furosemide (LASIX) 20 MG tablet Take 20 mg by mouth once daily Active finasteride (PROSCAR) 5 MG tablet Take 5 mg by mouth once daily Active Fluticasone-Umecli din-Vilant (TRELEGY ELLIPTA) 100-62.5-25 MCG/INH Inhale 1 puff by mouth once daily Active albuterol HFA (PROVENTIL;VENTOLI N;PROAIR) 108 (90 Base) MCG/ACT inhaler Inhale 1 puff by mouth every 6 hours as needed 02/28/2021 Active Basaglar KwikPen (BASAGLAR) pen Inject 60 Units subcutaneously once daily 05/14/2021 Active metFORMIN (GLUCOPHAGE) 500 MG tablet 500 mg 2 times daily with morning and evening meal 05/09/2021 Active PARoxetine (PAXIL) 20 MG tablet Take 20 mg by mouth once daily 05/23/2021 Active atorvastatin (LIPITOR) 20 MG tablet Take 20 mg by mouth once daily 04/30/2021 Active Active Problems Problem Noted Date Diagnosed Date Closed fracture of lateral malleolus 05/25/2021 Fracture of lower leg 05/25/2021 Nephrolithiasis 04/19/2021 Overview (05/25/2021): Added automatically from request for surgery [id number] Chronic diastolic heart failure 08/06/2020 Pain of left lower extremity 06/03/2020 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 07/27/20 19 Ectropion due to laxity of left eyelid 9 Shortness of breath 12/24/2014 Atherosclerotic heart diseas e of [place] coronary artery without angina pectoris 12/17/2014 Paroxysmal atrial fibrillation 12/17/2014 Back pain 12/17/2014 Essential (primary) hypertension 12/17/2014 Cardiomyopathy 12/17/2014 Congestive heart failure 12/17/2014 Diabetes mellitus 12/17/2014 Epistaxis 12/17/2014 Fatty liver 12/17/2014 Hypercholesterolemia 12/17/2014 Gallstones 12/17/2014 Obesity 12/17/2014 Other pulmonary embolism without acute cor pulmo nale 12/17/2014 Sleep apnea 12/17/2014 Immunizations Name Administration Dates Next Due Sensulin primary monovalent 12+ yr 0.3mL Pur ple cap 08/16/2021 INFLUENZA VACCINE 06/18/2019 INFLUENZA VACCINE, HIGH-DOSE , QUADR. (FLUZONE HIGH-DOSE QUADRIVALENT; 65Y+), 0.7 ML (HD-IIV4) 06/20/2019 Influenza Intradermal 07/23/2012 Social History Tobacco Use Types Packs/Day Years Used Date Smoking Tobacco: Never Smokeless Tobacco: Never Alcohol Use Standard Drinks/Week Comments Yes 0 (1 standard drink = 0.6 oz pur e alcohol) rare AUDIT-C Answer Date Recorded Q1: How often do you have a drink containing alc ohol? Never 11/25/2021 Average Number of Drinks Not on file 022 Q3: How often do you have si x or more drinks on one occasion? Never 11/25/2021 Sex and Gender Information Value Date Recorded Sex Assigned at Not on file Gender Identity Not on file Sexual Orientation Not on file Last Filed Vital Signs Vital Sign Reading Time Taken Comments Blood Pressure 119/62 11/25/2021 12:30 PM COVERING MACHINE TENDER Pulse 59 11/25/2021 12:30 PM COVERING MACHINE TENDER Temperature 36.6 C (97.9 F) 11/25/2021 10:57 AM COVERING MACHINE TENDER Respiratory Rate 20 11/25/2021 12:3 0 PM COVERING MACHINE TENDER Oxygen Saturation 94% 11/25/2021 12: 30 PM COVERING MACHINE TENDER Inhaled Oxygen Concentration 40% 12/2021 10:30 AM COVERING MACHINE TENDER Weight 145.3 kg (320 lb 6.4 oz) 11/25/2021 6:04 AM COVERING MACHINE TENDER Height 175.3 cm (5' 9 ) 11/25/2021 6:04 AM COVERING MACHINE TENDER Body Mass Index 47.31 11/25/2021 6:04 AM COVERING MACHINE TENDER Plan of Treatment Health Maintenance Due Date Last Done Comments MEDICARE AWV 12 MONTHS 1945 HEPATITIS C SCREENING 10/02/1965 DTAP/TDAP/TD VACCINES (1 - Tdap) 1966 PNEUMOCOCCAL VACCINE 50+ (1 of 2 - PCV) 1966 ZOSTER VACCINE (1 of 2) 1997 DIABETES RETINOPATHY SCREENING 05/25/2021 DIABETES-FOOT EXAM WITH MONOFILAMENT 05/25/2021 DIABETES-HGB A1C 05/25/2021 Respiratory Syncytial Virus (RSV) Vaccine Pt: or over 60 yrs (1 - 1-dose 75+ series) 2022 DIABETES-SERUM CREATININE 11/25/2022 11/25/2021 COVID-19 VACCINE ( - 2023-2 5 season) 2024 08/16/2021, 12/23/2020, 12/01/2020 INFLUENZA VACCINE (#1) 2024 9, 06/18/2019, 07/23/2012 DEPRESSION SCREENING 09/24/2024 DIABETES - URINE PROTEIN SCREENING 09/24/2024 HEPATITIS B VACCINE Aged Out No longe r eligible based on patient's age to complete this topic HIB VACCINE Aged Out No longer eligi ble based on patient's age to complete this topic HPV VACCINE Aged Out No longer eligi ble based on patient's age to complete this topic MENINGOCOCCAL (Group B) VACCINE Aged Out No longer eligible b ased on patient's age to complete this topic MENINGOCOCCAL VACCINE Aged Out No jake brad eligible based on patient's age to complete this topic Procedures Procedure Name Priority Date/Time Associated Diagnosis Comments BASIC METABOLIC PANEL (CALCIUM TOTAL) STAT 11/25/2021 6:21 AM COVERING MACHINE TENDER Type 2 diabetes mellitus with other specified complication, with long-term current use of insulin (HCC) from Last 3 Months or Most Recently Relevant to Health Maintenance Results * (ABNORMAL) BASIC METABOLIC PANEL (CALCIUM TOTAL) (11/25/2021 6:21 AM COVERING MACHINE TENDER) BUN 16 7 - 26 mg/dL 11/25/2021 6:50 AM [facility] Creatinine 0.99 0.71 - 1.16 mg/dL 11/25/2021 6:50 AM [facility] Sodium 142 136 - 145 mmol/L 11/25/2021 6:50 AM [facility] Potassium 4.0 3.5 - 4.5 mmol/L 11/25/2021 6:50 AM [facility] Chloride 105 98 - 107 mmol/L 11/25/2021 6:50 AM [facility] CO2 28 22 - 29 mmol/L 11/25/2021 6:50 AM [facility] Glucose 106 70 - 115 mg/dL 11/25/2021 6:50 AM [facility] Calcium 9.3 8.4 - 10.2 mg/dL 11/25/2021 6:50 AM [facility] Anion Gap 13 8 - 18 11/25/2021 6:50 AM [facility] BUN/Creatinine Ratio 16 7 - 23 11/25/2021 6:50 AM [facility] Osmolality Calculated 296 270 - 300 mOsm/kg 11/25/2021 6:50 AM [facility] eGFR by CKD-EPI 80(L) >=90 mL/min/1.7 3 m2 11/25/2021 6:50 AM [facility] Blood BLOOD SPECIMEN / Unknown Venipuncture / Unknown 11/25/2021 6:21 AM COVERING MACHINE TENDER 11/25/2021 6:26 AM [facility] Roselyn Samson MD LAB - CHEMISTRY ORDERABLES [facility] [address] [place] [address], [facility] [phone] from Last 3 Months or Most Recently Relevant to Health Maintenance Care Teams Microsoft Systems Engineer Relationship Specialty Start Date End Date Koko Paulson MD [address] [place] [address], [phone] PCP - General 11/27/21 Amberly Jin MD [address] [place] [address] Ophthalmology 01/16/22
--- OUTSIDE RECORDS SUMMARY | 2024-12-01 10:56 | XMS_ITS | Patient Health Summary ---
Author Organization [facility] Address [address] [place] [address] Care Team Providers Care Magazine Grinder Loader Name Role Phone Koko Paulson MD Primary Care Provider [phone] Amberly Jin MD Unavailable [phone] Note from [facility],non-owned Affiliates and Associated Physician Practices is amultiple site organization consisting of ambulatory clinics and hospital sitesin [place], [place], [place] and [place]. This disclosure is being madepursuant to the Care Everywhere program and may not contain all information available regarding this patient. Last updated 18.[facility] Allergies * Amiodarone(Swelling) -Medium Criticality * Povidone Iodine(Urticaria) -Medium Criticality * Naproxen(Swelling) -High Criticality * Shellfish-Derived Products(Urticaria) -Medium Criticality Medications * Be aware that medications may not be up to date on this document. Alwaysverify current medications with the patient. * omeprazole (PRILOSEC) 40 MG capsule(Started 04/22/2019) Take 1 capsule by mouth once daily 4 refills left * dilTIAZem coated beads 24hr (CARDIZEM CD) 240 MG capsule(Started 04/22/2019) Take 240 mg by mouth once daily 4 refills left * sotalol (BETAPACE) 80 MG tablet(Started 07/15/2019) Take 80 mg by mouth 2 times daily 5 refills left * ELIQUIS 2.5 MG tablet(Started 04/22/2019) Take 2.5 mg by mouth 2 times daily 3 refills left * tamsulosin (FLOMAX) 0.4 MG capsule(Started 04/22/2019) Take 0.4 mg by mouth once daily 6 refills left * oxyCODONE-acetaminophen (PERCOCET) 5-325 MG tablet(Started 06/26/2019) Take 1 tablet by mouth every 6 hours as needed * BYDUREON BCISE 2 MG/0.85ML AUIJ(Started 06/26/2019) Inject 2 mg subcutaneously every 7 days 2 refills left * furosemide (LASIX) 20 MG tablet Take 20 mg by mouth once daily * finasteride (PROSCAR) 5 MG tablet Take 5 mg by mouth once daily * Hdivqzudohp-Wwcwakkyf-Azsrgy (TRELEGY ELLIPTA) 100-62.5-25 MCG/INH Inhale 1 puff by mouth once daily * albuterol HFA (PROVENTIL;VENTOLIN;PROAIR) 108 (90 Base) MCG/ACT inhaler (Started 02/28/2021) Inhale 1 puff by mouth every 6 hours as needed * Basaglar KwikPen (BASAGLAR) pen(Started 05/14/2021) Inject 60 Units subcutaneously once daily * metFORMIN (GLUCOPHAGE) 500 MG tablet(Started 05/09/2021) 500 mg 2 times daily with morning and evening meal * PARoxetine (PAXIL) 20 MG tablet(Started 05/23/2021) Take 20 mg by mouth once daily * atorvastatin (LIPITOR) 20 MG tablet(Started 04/30/2021) Take 20 mg by mouth once daily Active Problems Problem Noted Date Diagnosed Date Closed fracture of lateral malleolus 05/25/2021 Fracture of lower leg 05/25/2021 Nephrolithiasis 04/19/2021 Chronic diastolic heart failure 08/06/2020 Pain of left lower extremity 06/03/2020 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 07/27/20 19 Ectropion due to laxity of left eyelid 9 Shortness of breath 12/24/2014 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 (FLUZONE HIGH-DOSE QUADRIVALENT; 65Y+), 0.7 ML (HD-IIV4)(Given 06/20/2019) * Influenza Intradermal(Given 07/23/2012) Social History Tobacco Use Types Packs/Day Years [...] Comments Blood Pressure 119/62 11/25/2021 12:30 PM STOCK SHIPPER Pulse 59 11/25/2021 12:30 PM STOCK SHIPPER Temperature 36.6 C (97.9 F) 11/25/2021 10:57 AM STOCK SHIPPER Respiratory Rate 20 11/25/2021 12:3 0 PM STOCK SHIPPER Oxygen Saturation 94% 11/25/2021 12: 30 PM STOCK SHIPPER Inhaled Oxygen Concentration 40% 12/2021 10:30 AM STOCK SHIPPER Weight 145.3 kg (320 lb 6.4 oz) 11/25/2021 6:04 AM STOCK SHIPPER Height 175.3 cm (5' 9 ) 11/25/2021 6:04 AM STOCK SHIPPER Body Mass Index 47.31 11/25/2021 6:04 AM STOCK SHIPPER Procedures * CARDIAC EKG ORDER(Performed 12/20/2021) * GLUCOSE - POINT OF CARE(Performed 11/25/2021) * REPAIR ECTROPION EYELID(Performed 11/25/2021) Performed for Ectropion of both lower eyelids, unspecified ectropion type * LARYNGEAL MASK AIRWAY(Performed 11/25/2021) * BASIC METABOLIC PANEL (CALCIUM TOTAL)(Performed 11/25/2021) Performed for Type 2 diabetes mellitus with other specified complication, with long-term current use of insulin (HCC) * GLUCOSE - POINT OF CARE(Performed 11/25/2021) * CBC W/O DIFFERENTIAL(Performed 08/04/2021) Performed for Type 2 diabetes mellitus with other specified complication, with long-term current use of insulin (HCC) * PTT INHIBITOR(Performed 08/04/2021) Performed for Type 2 diabetes mellitus with other specified complication, with long-term current use of insulin (HCC) * PT-INR [facility](Performed 08/04/2021) Performed for Type 2 diabetes mellitus with other specified complication, with long-term current use of insulin (HCC) * EKG 12-LEAD(Performed 08/04/2021) Performed for Type 2 diabetes mellitus with other specified complication, with long-term current use of insulin (HCC) Results * CARDIAC EKG ORDER (12/20/2021 12:01 PM CDT) Narrative 12/20/2021 12:01 PM CDT Ordered by an unspecified provider. Scanned Document CARDIAC SERVICES ORD ERABLES * (ABNORMAL) GLUCOSE - POINT OF CARE (11/25/2021 9:55 AM STOCK SHIPPER) Only the most recent of2 resultswithin the time period is included. Glucose WB/POC 130(H) 70 - 115 mg/dL 11/27/2021 12:16 PM STOCK SHIPPER [facility] Specimen Type Cap Fingerstick 2021 12:16 PM STOCK SHIPPER [facility] Blood BLOOD SPECIMEN / Unknown 11/25/2021 9:55 AM STOCK SHIPPER 11/27/2021 12:16 PM STOCK SHIPPER Lianna Ivory MD LAB - POINT OF PR RE ORDERABLES [facility] [address] [place] [address], [facility] [phone] * LARYNGEAL MASK AIRWAY (11/25/2021 7:49 AM STOCK SHIPPER) Narrative Deedee Mancera Anes Asst - 11/25/2021 7:49 AM STOCK SHIPPER Deedee Mancera Anes Asst 11/25/2021 7:50 AM LMA Placement Procedure/LDA Note: Patient Location: OR. Procedure: LMA. Pretreatment: 100% O2 Induction: standard IV Patient position: sniffing. Mask Ventilation: not attempted Type: LMA Size: 4 Number of Attempts: 1. Placement verified by: CO2 monitor Staff Section Anesthesia Provider: Stacie Huffman MD Provider #1: Deedee Mancera Anes Asst, Performed the procedure. Stacie Huffman MD GENERAL ANESTHESIA O RDERABLES * (ABNORMAL) BASIC METABOLIC PANEL (CALCIUM TOTAL) (11/25/2021 6:21 AM STOCK SHIPPER) BUN 16 7 - 26 mg/dL 11/25/2021 6:50 AM [facility] Creatinine 0.99 0.71 - 1.16 mg/dL 11/25/2021 6:50 AM [facility] Sodium 142 136 - 145 mmol/L 11/25/2021 6:50 AM [facility] Potassium 4.0 3.5 - 4.5 mmol/L 11/25/2021 6:50 AM [facility] Chloride 105 98 - 107 mmol/L 11/25/2021 6:50 AM [facility] CO2 28 22 - 29 mmol/L 11/25/2021 6:50 AM [facility] Glucose 106 70 - 115 mg/dL 11/25/2021 6:50 AM [facility] Calcium 9.3 8.4 - 10.2 mg/dL 11/25/2021 6:50 AM [facility] Anion Gap 13 8 - 18 11/25/2021 6:50 AM [facility] BUN/Creatinine Ratio 16 7 - 23 11/25/2021 6:50 AM [facility] Osmolality Calculated 296 270 - 300 mOsm/kg 11/25/2021 6:50 AM [facility] eGFR by CKD-EPI 80(L) >=90 mL/min/1.7 3 m2 11/25/2021 6:50 AM [facility] Blood BLOOD SPECIMEN / Unknown Venipuncture / Unknown 11/25/2021 6:21 AM STOCK SHIPPER 11/25/2021 6:26 AM STOCK SHIPPER Roselyn Samson MD LAB - CHEMISTRY ORDERABLES Performing Organization Address [facility] Co de Phone Number [facility] [address] [place] [address], [facility] [phone] * PT-INR [facility] (08/04/2021 9:40 AM [facility]) PT 13.6 12.1 - 14.8 Seconds 08/04/2021 10:22 AM [facility] INR 1.1 See Comment 08/04/2021 10:22 AM [facility] Comment:The suggested therap eutic range for standard coumadin (warfarin) therapy is an INR of 2.0-3.0. For high-risk patients (Mechanical Mitral Valve Prosthesis, etc.), the suggested prophylactic therapeutic range is an INR of 2.5-3.5. Blood BLOOD SPECIMEN / Unknown Lab Venipuncture / Unknown 08/04/2021 9:40 AM STOCK SHIPPER 08/04/2021 10:05 AM [facility] Roselyn Samson MD LAB - COAGULATIO N ORDERABLES Performing Organization Address [facility] Co de Phone Number [address] [address], [facility] [phone] * PTT INHIBITOR (08/04/2021 9:40 AM [facility]) APTT 33.4 23.0 - 38.4 Seconds 08/05/2021 11:02 AM [facility] Interpretation APTT Inhibitor Negative Negative 08/05/2021 11:02 AM [facility] Comment: MIXING TEST NOT IND ICATED APTTI Patient Seconds 0 min 08/05/2021 11:02 AM [facility] Comment:NV(NO VALUE) APTTI Patient Seconds 60 Mins 08/05/2021 11:02 AM [facility] Comment:NV(NO VALUE) Blood BLOOD SPECIMEN / Unknown Lab Venipuncture / Unknown 08/04/2021 9:40 AM STOCK SHIPPER 08/04/2021 10:05 AM STOCK SHIPPER Roselyn Samson MD LAB - COAGULATIO N ORDERABLES Performing Organization Address City/State/[facility] Co de Phone Number [facility] [address] [place] [address], [facility] [phone] * CBC W/O DIFFERENTIAL (08/04/2021 9:40 AM STOCK SHIPPER) WBC 8.4 3.5 - 10.5 10 3/uL 08/04/2021 10:22 AM [facility] RBC 4.62 4.30 - 5.70 10 6/uL 08/04/2021 10:22 AM [facility] Hemoglobin 13.7 12.0 - 17.6 g/dL 08/04/2021 10:22 AM [facility] Hematocrit 43.7 35.2 - 51.7 % 08/04/2021 10:22 AM [facility] MCV 94.6 80.7 - 98.3 fL 08/04/2021 10:22 AM [facility] MCH 29.7 26.7 - 34.0 pg 08/04/2021 10:22 AM [facility] MCHC 31.4 30.8 - 35.9 g/dL 08/04/2021 10:22 AM [facility] Platelet Count 245 150 - 400 10 3/uL 08/04/2021 10:22 AM [facility] RDW-SD 49.9 36.0 - 50.0 fL 08/04/2021 10:22 AM [facility] RDW-CV 14.3 11.2 - 14.8 % 08/04/2021 10:22 AM [facility] MPV 9.8 9.4 - 12.9 fL 08/04/2021 10:22 AM [facility] nRBC Absolute 0.00 0 10 3/uL 08/04/2021 10:22 AM [facility] nRBC Auto 0.0 0 /100 WBC 08/04/2021 10:22 AM [facility] Blood BLOOD SPECIMEN / Unknown Lab Venipuncture / Unknown 08/04/2021 9:40 AM STOCK SHIPPER 08/04/2021 10:17 AM STOCK SHIPPER Roselyn Samson MD LAB - HEMATOLOGY ORDERABLES Performing Organization Address City/[facility]/ZIP Co de Phone Number [facility] [address] [place] [address], [facility] [phone] * EKG 12-LEAD (08/04/2021 8:51 AM STOCK SHIPPER) Ventricular Rate 66 BPM SL MUSE Atrial Rate 66 BPM [facility] MUSE P-R Interval 138 ms [facility] MUSE QRS Duration ms 98 ms [facility] MUSE Q-T Interval ms 406 ms [facility] MUSE QTC Calculation (Bezet) 425 ms [facility] MUSE Calculated P [place] 10 degrees [facility] MUSE Calculated R [place] 52 degrees [facility] MUSE Calculated T [place] 59 degrees [facility] MUSE Interpretation EKG NORMAL SINUS RHYTHM INCOMPLETE RIGHT BUNDLE BRANCH BLOCK BORDERLINE ECG NO PREVIOUS ECGS AVAILABLE Confirmed by fellow JAYY CORDERO MD [id number]) on 08/05/2021 10:40:38 AM Confirmed by Theodore Elizabeth ([id number]) on 08/07/2021 9:48:53 AM [facility] 08/04/2021 8:51 AM STOCK SHIPPER 08/07/2021 9:48 AM STOCK SHIPPER Roselyn Samson MD ECG ORDERABLES [facility] MUSE Care Teams Magazine Grinder Loader Relationship Specialty Start Date End Date Koko Paulson MD [address] [place] [address], [phone] PCP - General 11/27/21 Amberly Jin MD [address] [place] [address] Ophthalmology 01/16/22
--- OUTSIDE RECORDS SUMMARY | 2024-12-01 10:56 | XMS_ITS | Continuity of Care Document ---
Author Organization [facility] Address [address] [place] [address] Phone Care Team Providers Care Station Worker Name Role Phone Lali Hancock Unavailable Unavailable Advance Directives Directive Yes / No Effective Date File Name No Information Encounters Encounter Description Practice Location Reason(s) For Visit Diagnoses Date Provider Providers Copied on Encounter [facility], [address], [place], [place], [id number], [place] tel:[phone] [facility] No Information Apr-0 5-200 3 Karissa Escalera. [address] [facility] , [address], [place], [address], [place]. tel:[phone] Family History Family Member Type Diagnosis Age At Onset No Information Payers Payer name Insurance type Covered green party ID Authoriza tion(s) [employer] SOI CI [id number] Social History Type Description Quantity Date Captured Comments Sex Male Smoking Status No Information Chief Complaint And Reason For Visit No Information Reason For Referral Reason For Referral No Information History Of Present Illness Encounter Date Complaint History Of Prese nt Illness No Information Functional Status Date Functional Assessmen t No Information Instructions Date Instruction Additional Infor mation No Information Assessments Type Assessment Date No Information Patient Care Teams Name Effective Dates (start - stop) Status Members No Information
--- OUTSIDE RECORDS SUMMARY | 2024-12-01 10:56 | XMS_ITS | Encounter Summary ---
Author Organization [facility] Address [address] [place] [address] Phone Care Team Providers Care Watch Crystal Molder Name Role Phone Roselyn Samson MD Primary Care Provider Encounter Details Date Type Department Care Team (Latest Contact Info) Description 04/19/2023 Orders Only [facility] Mariam Phillips NP [address] [place] [address] Social History Tobacco Use Types Packs/Day Years Used Date Smoking Tobacco: Never Smokeless Tobacco: Never AUDIT-C Answer Date Recorded Q1: How often [...] on file Legal Sex Male 11:36 AM TRADER Gender Identity Male 09/22/2020 12:54 PM TRADER Sexual Orientation Not on file documented as of this encounter Plan of Treatment Not on file documented as of this encounter Procedures Procedure Name Priority Date/Time Associated Diagnosis Comments SCAN - NEUROLOGY 04/19/2023 SCAN - RADIOLOGY/IMAGING 04/18/2023 documented in this encounter Results * SCAN - NEUROLOGY (04/19/2023) Anatomical Region Laterality Modality Other Mariam Phillips COLD REDUCTION ROLLER Final Result * SCAN - RADIOLOGY/IMAGING (04/18/2023) Anatomical Region Laterality Modality Other us Provider Scanning Final Result documented in this encounter Visit Diagnoses Not on filedocumented in this encounter Care Teams Watch Crystal Molder Relationship Specialty Start Date End Date Roselyn Samson MD [address] [facility] [address] [place] [address] PCP - General Family Medicine 02/04/21 documented as of this encounter
--- OUTSIDE RECORDS SUMMARY | 2024-12-01 10:56 | XMS_ITS | Referral Summary ---
Author Organization [facility] Address [address] [facility] [place] [address] Care Team Providers Care Trailer Tank Truck Driver Name Role Phone Koko Paulson MD Primary Care Provider [phone] Amberly Jin MD Unavailable [phone] Source Comments [facility],non-owned Affiliates and Associated Physician Practices is amultiple site organization consisting of ambulatory clinics and hospital sitesin [place], [place], [place] and [place]. This disclosure is being madepursuant to the Care Everywhere program and may not contain all information available regarding this patient. 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 07/27/20 19 Ectropion due to laxity of left eyelid 9 Shortness of breath 12/24/2014 Atherosclerotic heart diseas e of [place] coronary artery without angina pectoris 12/17/2014 Paroxysmal atrial fibrillation 12/17/2014 Back pain 12/17/2014 Essential (primary) hypertension 12/17/2014 Cardiomyopathy 12/17/2014 Congestive heart failure 12/17/2014 Diabetes mellitus 12/17/2014 Epistaxis 12/17/2014 Fatty liver 12/17/2014 Hypercholesterolemia 12/17/2014 Gallstones 12/17/2014 Obesity 12/17/2014 Other pulmonary embolism without acute cor pulmo nale 12/17/2014 Sleep apnea 12/17/2014 Immunizations Name Administration Dates Next Due [employer] primary monovalent 12+ yr 0.3mL Pur ple [...] Comments Blood Pressure 119/62 11/25/2021 12:30 PM COMMERCIAL LOAN PROCESSOR Pulse 59 11/25/2021 12:30 PM COMMERCIAL LOAN PROCESSOR Temperature 36.6 C (97.9 F) 11/25/2021 10:57 AM COMMERCIAL LOAN PROCESSOR Respiratory Rate 20 11/25/2021 12:3 0 PM COMMERCIAL LOAN PROCESSOR Oxygen Saturation 94% 11/25/2021 12: 30 PM COMMERCIAL LOAN PROCESSOR Inhaled Oxygen Concentration 40% 12/2021 10:30 AM COMMERCIAL LOAN PROCESSOR Weight 145.3 kg (320 lb 6.4 oz) 11/25/2021 6:04 AM COMMERCIAL LOAN PROCESSOR Height 175.3 cm (5' 9 ) 11/25/2021 6:04 AM COMMERCIAL LOAN PROCESSOR Body Mass Index 47.31 11/25/2021 6:04 AM COMMERCIAL LOAN PROCESSOR Functional Status Functional Status Response Date of Assess ment Is person deaf or have serious hearing difficult y? No 11/25/2021 Is person blind or have serious difficulty seein g? No 11/25/2021 Does person have serious dif ficulty walking/climbing stairs? No 11/25/2021 Does person have difficulty dressing/bathing? No 11/25/2021 Does person have difficulty doing errands alone? No 11/25/2021 Cognitive Status Response Date of Assessm ent Does person have difficulty concentrating/remembering/making decisions? No 11/25/2021 Plan of Treatment Not on file Procedures Procedure Name Priority Date/Time Associated Diagnosis Comments BASIC METABOLIC PANEL (CALCIUM TOTAL) STAT 11/25/2021 6:21 AM COMMERCIAL LOAN PROCESSOR Type 2 diabetes mellitus with other specified complication, with long-term current use of insulin (HCC) from Last 3 Months or Most Recently Relevant to Health Maintenance Results * (ABNORMAL) BASIC METABOLIC PANEL (CALCIUM TOTAL) (11/25/2021 6:21 AM COMMERCIAL LOAN PROCESSOR) BUN 16 7 - 26 mg/dL 11/25/2021 6:50 AM [facility] Creatinine 0.99 0.71 - 1.16 mg/dL 11/25/2021 6:50 AM [facility] Sodium 142 136 - 145 mmol/L 11/25/2021 6:50 AM [facility] Potassium 4.0 3.5 - 4.5 mmol/L 11/25/2021 6:50 AM [facility] Chloride 105 98 - 107 mmol/L 11/25/2021 6:50 AM [facility] CO2 28 22 - 29 mmol/L 11/25/2021 6:50 AM [facility] Glucose 106 70 - 115 mg/dL 11/25/2021 6:50 AM [facility] Calcium 9.3 8.4 - 10.2 mg/dL 11/25/2021 6:50 AM [facility] Anion Gap 13 8 - 18 11/25/2021 6:50 AM [facility] BUN/Creatinine Ratio 16 7 - 23 11/25/2021 6:50 AM [facility] Osmolality Calculated 296 270 - 300 mOsm/kg 11/25/2021 6:50 AM [facility] eGFR by CKD-EPI 80(L) >=90 mL/min/1.7 3 m2 11/25/2021 6:50 AM COMMERCIAL LOAN PROCESSOR [facility] Blood BLOOD SPECIMEN / Unknown Venipuncture / Unknown 11/25/2021 6:21 AM COMMERCIAL LOAN PROCESSOR 11/25/2021 6:26 AM COMMERCIAL LOAN PROCESSOR Roselyn Samson MD LAB - CHEMISTRY ORDERABLES Performing Organization Address City/State/[facility] Co de Phone Number [facility] [address] [place] [address], [facility] [phone] from Last 3 Months or Most Recently Relevant to Health Maintenance Care Teams Trailer Tank Truck Driver Relationship Specialty Start Date End Date Koko Paulson MD [address] [place] [address], [phone] PCP - General 11/27/21 Amberly Jin MD [address] [place] [address] Ophthalmology 01/16/22
--- OUTSIDE RECORDS SUMMARY | 2024-12-01 10:56 | XMS_ITS | Encounter Summary ---
Author Organization [facility] Address [address] [place] [address] Phone Care Team Providers Care Screening Nurse Name Role Phone Roselyn Samson MD Primary Care Provider Encounter Details Date Type Department Care Team (Latest Contact Info) Description 05/30/2024 Orders Only [facility] Scanning, Provider Social History Tobacco Use Types Packs/Day Years [...] on file Legal Sex Male 11:36 AM SMOKE JUMPER SUPERVISOR Gender Identity Male 09/22/2020 12:54 PM SMOKE JUMPER SUPERVISOR Sexual Orientation Not on file documented as of this encounter Plan of Treatment Not on file documented as of this encounter Procedures Procedure Name Priority Date/Time Associated Diagnosis Comments SCAN - LABS 05/30/2024 documented in this encounter Results * SCAN - LABS (05/30/2024) us Provider Scanning Final Result documented in this encounter Visit Diagnoses Not on filedocumented in this encounter Care Teams Screening Nurse Relationship Specialty Start Date End Date Roselyn Samson MD [address] [facility] [address] [facility] [address] [place] [address] PCP - General Family Medicine 02/04/21 documented as of this encounter
--- OUTSIDE RECORDS SUMMARY | 2024-12-01 10:56 | XMS_ITS | Encounter Summary ---
Author Organization [facility] Address [address] [place] [address] Phone Care Team Providers Care Director Of Partner Marketing Name Role Phone Roselyn Samson MD Primary Care Provider Encounter Details Date Type Department Care Team (Latest Contact Info) Description 04/21/2023 Orders Only [facility] Mariam Phillips NP [address] [place] [address] Social History Tobacco Use Types Packs/Day Years [...] on file Legal Sex Male 11:36 AM LAB TECHNOLOGIST Gender Identity Male 09/22/2020 12:54 PM LAB TECHNOLOGIST Sexual Orientation Not on file documented as of this encounter Plan of Treatment Not on file documented as of this encounter Procedures Procedure Name Priority Date/Time Associated Diagnosis Comments SCAN - LABS 04/21/2023 SCAN - RADIOLOGY/IMAGING 04/20/2023 documented in this encounter Results * SCAN - LABS (04/21/2023) us Mariam Phillips FULL STACK JAVA DEVELOPER Final Result * SCAN - RADIOLOGY/IMAGING (04/20/2023) Anatomical Region Laterality Modality Other us Mariam Phillips FULL STACK JAVA DEVELOPER Final Result documented in this encounter Visit Diagnoses Not on filedocumented in this encounter Care Teams Director Of Partner Marketing Relationship Specialty Start Date End Date Roselyn Samson MD [address] [facility] [address] [place] [address] PCP - General Family Medicine 02/04/21 documented as of this encounter
--- OUTSIDE RECORDS SUMMARY | 2024-12-01 10:56 | XMS_ITS | Encounter Summary ---
Author Organization 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 Gender Identity Male 09/22/2020 12:54 PM AMMUNITION ASSEMBLY LABORER Sexual Orientation Not on file documented as of this encounter Plan of Treatment Not on file documented as of this encounter Procedures Procedure Name Priority Date/Time Associated Diagnosis Comments CARDIOLOGY DOCUMENT SCAN 04/23/2023 SLEEP LAB/STUDY - RESULT 04/22/2023 documented in this encounter Results * CARDIOLOGY DOCUMENT SCAN (04/23/2023) Anatomical Region Laterality Modality Other us Mariam Phillips NP CV CARDIAC SERVI TERRENCE PROCEDURES Final Result * SLEEP LAB/STUDY - RESULT (04/22/2023) us Mariam Phillips NP Final Result documented in this encounter Visit Diagnoses Not on filedocumented in this encounter Care Teams Golf Range Attendant Relationship Specialty Start Date End Date Roselyn Samson MD [address] [facility] [address] [place] [address] PCP - General Family Medicine 02/04/21 documented as of this encounter
[2024-12-01 11:07] VITALS: BP 129/84; PULSE 71; RESP 18; O2SAT 98
[2024-12-01] MEDS: ACETAMINOPHEN 325 MG TABLET 650 MG PO (11:08)
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
--- OUTSIDE RECORDS SUMMARY | 2024-12-01 12:10 | XMS_ITS | Referral Summary ---
Author Organization [facility] Address [address] [place] [address] Care Team Providers Care Infrastructure Security Architect Name Role Phone Roselyn Samson MD Primary [...] (04/19/2021): Added automatically from request for surgery [id number] Chronic diastolic heart failure 08/06/2020 Essential hypertension [...] on file Legal Sex Male 11:36 AM CUT AND PRINT MACHINE OPERATOR Gender Identity Male 09/22/2020 12:54 PM CUT AND PRINT MACHINE OPERATOR Sexual Orientation Not on file Last Filed [...] on file Medical Devices Explanted Type Area Aquarist Device Identifier Shelf Expiration Date Model / Serial / Lot [employer] [id number] Universa 6fr 24cm Radiopaque Graduate Firm Monofilament Tether - [id number] Implanted:Qty: 1 on 04/26/2021 by Norman Coon MD at [facility] Explanted:Qty: 1 on 05/05/2021 by Charlotte Esparza NP Stent Right: Ureter [employer] [id number] 12/24/2023 [id number] / / [id number] [employer] [id number] Universa 6fr 24cm Radiopaque Graduate Firm [employer]ether - [id number] Implanted:Qty: 1 on 04/26/2021 by Norman Coon MD at [facility] Explanted:Qty: 1 on 05/05/2021 by Charlotte Esparza NP Stent Left: Ureter [employer] [id number] 10/25/2023 [id number] / / [id number] Procedures Procedure Name Priority Date/Time Associated Diagnosis Comments EGFR Routine 08/30/2022 11:03 AM CUT AND PRINT MACHINE OPERATOR Essential hypertension Dyslipidemia Paroxysmal atrial fibrillation (HCC) Chronic diastolic heart failure (HCC) Obstructive sleep apnea Type 2 diabetes mellitus without complication, with long-term current use of insulin (HCC) HEMOGLOBIN A1C Routine 08/30/2022 11:03 AM CUT AND PRINT MACHINE OPERATOR Essential hypertension Dyslipidemia Paroxysmal atrial fibrillation (HCC) Chronic diastolic heart failure (HCC) Obstructive sleep apnea Type 2 diabetes mellitus without complication, with long-term current use of insulin (HCC) LIPID PANEL Routine 08/30/2022 11:03 AM CUT AND PRINT MACHINE OPERATOR Essential hypertension Dyslipidemia Paroxysmal atrial fibrillation (HCC) Chronic diastolic heart failure (HCC) Obstructive sleep apnea Type 2 diabetes mellitus without complication, with long-term current use of insulin (HCC) from Last 3 Months or Most Recently Relevant to Health Maintenance Results * eGFR (08/30/2022 11:03 AM CUT AND PRINT MACHINE OPERATOR) eGFR 79 mL/min/1. 73 m2 LOW BROWN [...] reviewed 2021. Blood 08/30/2022 11:0 3 AM CUT AND PRINT MACHINE OPERATOR 08/30/2022 12:10 PM CUT AND PRINT MACHINE OPERATOR Allen Langston MD LAB BLOOD ORDERABLES Final R esult Performing Organization Address [facility] de Phone Number [facility] [address] [facility] [place] [address] * (ABNORMAL) Hemoglobin A1c (08/30/2022 11:03 AM CUT AND PRINT MACHINE OPERATOR) Hgb A1C 6.6(H) 4.0 - 5.6 % LOW [facility]OWN Estimated Average Glucose 143 mg/dL LOW [facility] Comment: The ADA recommends reporting an estimated Average Glucose (eAG) with all Hemoglobin A1c results using the equation derived from a study of 507 normal and diabetic adults. Minority populations were underrepresented and children were not included. (Diabetes Care 31:2140-6546, 2008). The eAG is not equivalent to a fasting glucose. Blood 08/30/2022 11:0 3 AM CUT AND PRINT MACHINE OPERATOR 08/30/2022 12:10 PM CUT AND PRINT MACHINE OPERATOR Allen Langston MD LAB BLOOD ORDERABLES Final R esult Performing Organization Address [facility] de Phone Number [facility] [address] [facility] [place] [address] * (ABNORMAL) Lipid panel (08/30/2022 11:03 AM CUT AND PRINT MACHINE OPERATOR) Cholesterol 137 30 - 199 mg/dL LOW [...] LOW [facility] Blood 08/30/2022 11:0 3 AM CUT AND PRINT MACHINE OPERATOR 08/30/2022 12:10 PM CUT AND PRINT MACHINE OPERATOR Allen Langston MD LAB BLOOD ORDERABLES Final R esult [facility] [address] [facility]. Department [place] [address] from Last 3 Months or Most Recently Relevant to Health Maintenance Insurance [facility] MEDICARE [facility] MEDICARE [facility] Care Teams Infrastructure Security Architect Relationship Specialty Start Date End Date Roselyn Samson MD [address] [address] [place] [address] PCP - General Family Medicine 02/04/21
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
--- OUTSIDE RECORDS SUMMARY | 2024-12-01 12:10 | XMS_ITS | Patient Health Summary ---
Author Organization [facility] Address [address] [place] [address] Care Team Providers Care Recording Studio Intern Name Role Phone Koko Paulson MD Primary Care Provider [phone] Amberly Jin MD Unavailable Note from [facility],non-owned Affiliates and Associated Physician Practices is amultiple site organization consisting of ambulatory clinics and hospital sitesin [place], [place], [place] and [place]. This disclosure is being madepursuant to the Care Everywhere program and may not contain all information available regarding this patient. 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 Paroxysmal [...] Comments Blood Pressure 119/62 11/25/2021 12:30 PM PRODUCTION OR PLANT ENGINEER Pulse 59 11/25/2021 12:30 PM PRODUCTION OR PLANT ENGINEER Temperature 36.6 C (97.9 F) 11/25/2021 10:57 AM PRODUCTION OR PLANT ENGINEER Respiratory Rate 20 11/25/2021 12:3 0 PM PRODUCTION OR PLANT ENGINEER Oxygen Saturation 94% 11/25/2021 12: 30 PM PRODUCTION OR PLANT ENGINEER Inhaled Oxygen Concentration 40% 12/2021 10:30 AM PRODUCTION OR PLANT ENGINEER Weight 145.3 kg (320 lb 6.4 oz) 11/25/2021 6:04 AM PRODUCTION OR PLANT ENGINEER Height 175.3 cm (5' 9 ) 11/25/2021 6:04 AM PRODUCTION OR PLANT ENGINEER Body Mass Index 47.31 11/25/2021 6:04 AM PRODUCTION OR PLANT ENGINEER Procedures * CARDIAC EKG ORDER(Performed 12/20/2021) * [...] current use of insulin (HCC) * PT-INR [facility](Performed 08/04/2021) Performed for Type 2 diabetes [...] - POINT OF CARE (11/25/2021 9:55 AM PRODUCTION OR PLANT ENGINEER) Only the most recent of2 resultswithin the time period is included. Glucose WB/POC 130(H) 70 - 115 mg/dL 11/27/2021 12:16 PM PRODUCTION OR PLANT ENGINEER [facility] Specimen Type Cap Fingerstick 2021 12:16 PM PRODUCTION OR PLANT ENGINEER [facility] Blood BLOOD SPECIMEN / Unknown 11/25/2021 9:55 AM PRODUCTION OR PLANT ENGINEER 11/27/2021 12:16 PM PRODUCTION OR PLANT ENGINEER Lianna Ivory MD LAB - POINT OF WI RE ORDERABLES [facility] [address] [place] [address], [facility] [phone] * LARYNGEAL MASK [employer]WAY (11/25/2021 7:49 AM PRODUCTION OR PLANT ENGINEER) Narrative Deedee Mancera Anes Asst - 11/25/2021 7:49 AM PRODUCTION OR PLANT ENGINEER Deedee Mancera Anes Asst 11/25/2021 7:50 AM [...] METABOLIC PANEL (CALCIUM TOTAL) (11/25/2021 6:21 AM PRODUCTION OR PLANT ENGINEER) BUN 16 7 - 26 mg/dL 11/25/2021 6:[address] [facility] Creatinine 0.99 0.71 - 1.16 mg/dL 11/25/2021 6:[address] [facility] Sodium 142 136 - 145 mmol/L 11/25/2021 6:[address] [facility] Potassium 4.0 3.5 - 4.5 mmol/L 11/25/2021 6:[address] [facility] Chloride 105 98 - 107 mmol/L 11/25/2021 6:[address] [facility] CO2 28 22 - 29 mmol/L 11/25/2021 6:[address] [facility] Glucose 106 70 - 115 mg/dL 11/25/2021 6:[address] [facility] Calcium 9.3 8.4 - 10.2 mg/dL 11/25/2021 6:[address] [facility] Anion Gap 13 8 - 18 11/25/2021 6:[address] [facility] BUN/Creatinine Ratio 16 7 - 23 11/25/2021 6:[address] [facility] Osmolality Calculated 296 270 - 300 mOsm/kg 11/25/2021 6:[address] [facility] eGFR by CKD-EPI 80(L) >=90 mL/min/1.7 3 m2 11/25/2021 6:[address] [facility] Blood BLOOD SPECIMEN / Unknown Venipuncture / Unknown 11/25/2021 6:21 AM PRODUCTION OR PLANT ENGINEER 11/25/2021 6:26 AM PRODUCTION OR PLANT ENGINEER Roselyn Samson MD LAB - CHEMISTRY ORDERABLES Performing Organization Address [facility] Co de Phone Number [facility] [address] [place] [address], [facility] [phone] * PT-INR [facility] (08/04/2021 9:40 AM [facility]) PT 13.6 12.1 - 14.8 Seconds 08/04/2021 10:[address] [facility] INR 1.1 See Comment 08/04/2021 10:[address] [facility] Comment:The suggested therap eutic range for standard coumadin (warfarin) therapy is an INR of 2.0-3.0. For high-risk patients (Mechanical Mitral Valve Prosthesis, etc.), the suggested prophylactic therapeutic range is an INR of 2.5-3.5. Blood BLOOD SPECIMEN / Unknown Lab Venipuncture / Unknown 08/04/2021 9:40 AM PRODUCTION OR PLANT ENGINEER 08/04/2021 10:05 AM [facility] Roselyn Samson MD LAB - COAGULATIO N ORDERABLES Performing Organization Address [facility] Co de Phone Number [address] [address], [facility] [phone] * PTT INHIBITOR (08/04/2021 9:40 AM [facility]) APTT 33.4 23.0 - 38.4 Seconds 08/05/2021 11:[address] [facility] Interpretation APTT Inhibitor Negative Negative 08/05/2021 11:[address] [facility] Comment: MIXING TEST NOT IND ICATED APTTI Patient Seconds 0 min 08/05/2021 11:[address] [facility] Comment:NV(NO VALUE) APTTI Patient Seconds 60 Mins 08/05/2021 11:[address] [facility] Comment:NV(NO VALUE) Blood BLOOD SPECIMEN / Unknown Lab Venipuncture / Unknown 08/04/2021 9:40 AM PRODUCTION OR PLANT ENGINEER 08/04/2021 10:05 AM PRODUCTION OR PLANT ENGINEER Roselyn Samson MD LAB - COAGULATIO N ORDERABLES Performing Organization Address City/State/[facility] Co de Phone Number [facility] [address] [place] [address], [facility] [phone] * CBC W/O DIFFERENTIAL (08/04/2021 9:40 AM PRODUCTION OR PLANT ENGINEER) WBC 8.4 3.5 - 10.5 10 3/uL 08/04/2021 10:[address] [facility] RBC 4.62 4.30 - 5.70 10 6/uL 08/04/2021 10:[address] [facility] Hemoglobin 13.7 12.0 - 17.6 g/dL 08/04/2021 10:[address] [facility] Hematocrit 43.7 35.2 - 51.7 % 08/04/2021 10:[address] [facility] MCV 94.6 80.7 - 98.3 fL 08/04/2021 10:[address] [facility] MCH 29.7 26.7 - 34.0 pg 08/04/2021 10:[address] [facility] MCHC 31.4 30.8 - 35.9 g/dL 08/04/2021 10:[address] [facility] Platelet Count 245 150 - 400 10 3/uL 08/04/2021 10:[address] [facility] RDW-SD 49.9 36.0 - 50.0 fL 08/04/2021 10:[address] [facility] RDW-CV 14.3 11.2 - 14.8 % 08/04/2021 10:[address] [facility] MPV 9.8 9.4 - 12.9 fL 08/04/2021 10:[address] [facility] nRBC Absolute 0.00 0 10 3/uL 08/04/2021 10:[address] [facility] nRBC Auto 0.0 0 /100 WBC 08/04/2021 10:[address] [facility] Blood BLOOD SPECIMEN / Unknown Lab Venipuncture / Unknown 08/04/2021 9:40 AM PRODUCTION OR PLANT ENGINEER 08/04/2021 10:17 AM PRODUCTION OR PLANT ENGINEER Roselyn Samson MD LAB - HEMATOLOGY ORDERABLES Performing Organization Address City/[facility]/ZIP Co de Phone Number [facility] [address] [place] [address], [facility] [phone] * EKG 12-LEAD (08/04/2021 8:51 AM PRODUCTION OR PLANT ENGINEER) Ventricular Rate 66 BPM SL MUSE Atrial Rate 66 BPM [facility] MUSE P-R Interval 138 ms [facility] MUSE QRS Duration ms 98 ms [facility] MUSE Q-T Interval ms 406 ms [facility] MUSE QTC Calculation (Bezet) 425 ms [facility] MUSE Calculated P [place] 10 degrees [facility] MUSE Calculated R [place] 52 degrees [facility] MUSE Calculated T [place] 59 degrees [facility] MUSE Interpretation EKG NORMAL SINUS RHYTHM INCOMPLETE RIGHT BUNDLE BRANCH BLOCK BORDERLINE ECG NO PREVIOUS ECGS AVAILABLE Confirmed by fellow JAYY CORDERO MD ([id number]) on 08/05/2021 10:40:38 AM Confirmed by Theodore Elizabeth ([id number]) on 08/07/2021 9:48:53 AM [facility] 08/04/2021 8:51 AM PRODUCTION OR PLANT ENGINEER 08/07/2021 9:48 AM PRODUCTION OR PLANT ENGINEER Roselyn Samson MD ECG ORDERABLES [facility] MUSE Care Teams Recording Studio Intern Relationship Specialty Start Date End Date Koko Paulson MD [address] [place] [address], [phone] PCP - General 11/27/21 Amberly Jin MD [address] [place] [address] Ophthalmology 01/16/22
--- OUTSIDE RECORDS SUMMARY | 2024-12-01 12:10 | XMS_ITS | Clinical Summary ---
Author Organization [facility] Address [address] [place] [address] Care Team Providers Care Bioinformatics Programmer Name Role Phone Koko Paulson MD Primary Care Provider [phone] Amberly Jin MD Unavailable [phone] Source Comments [facility],non-owned Affiliates and Associated Physician Practices is amultiple site organization consisting of ambulatory clinics and hospital sitesin [place], [place], [place] and [place]. This disclosure is being madepursuant to the Care Everywhere program and may not contain all information available regarding this patient. 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 Paroxysmal atrial fibrillation 12/17/2014 Back pain 12/17/2014 Essential (primary) hypertension 12/17/2014 Cardiomyopathy 12/17/2014 Congestive heart failure 12/17/2014 Diabetes mellitus 12/17/2014 Epistaxis 12/17/2014 Fatty liver 12/17/2014 Hypercholesterolemia 12/17/2014 Gallstones 12/17/2014 Obesity 12/17/2014 Other pulmonary embolism without acute cor pulmo nale 12/17/2014 Sleep apnea 12/17/2014 Immunizations Name Administration Dates Next Due [employer] primary monovalent 12+ yr 0.3mL Pur ple [...] Comments Blood Pressure 119/62 11/25/2021 12:30 PM CREDIT CONTROL CLERK Pulse 59 11/25/2021 12:30 PM CREDIT CONTROL CLERK Temperature 36.6 C (97.9 F) 11/25/2021 10:57 AM CREDIT CONTROL CLERK Respiratory Rate 20 11/25/2021 12:3 0 PM CREDIT CONTROL CLERK Oxygen Saturation 94% 11/25/2021 12: 30 PM CREDIT CONTROL CLERK Inhaled Oxygen Concentration 40% 12/2021 10:30 AM CREDIT CONTROL CLERK Weight 145.3 kg (320 lb 6.4 oz) 11/25/2021 6:04 AM CREDIT CONTROL CLERK Height 175.3 cm (5' 9 ) 11/25/2021 6:04 AM CREDIT CONTROL CLERK Body Mass Index 47.31 11/25/2021 6:04 AM CREDIT CONTROL CLERK Plan of Treatment Health Maintenance Due Date [...] PANEL (CALCIUM TOTAL) STAT 11/25/2021 6:21 AM CREDIT CONTROL CLERK Type 2 diabetes mellitus with other specified complication, with long-term current use of insulin (HCC) from Last 3 Months or Most Recently Relevant to Health Maintenance Results * (ABNORMAL) BASIC METABOLIC PANEL (CALCIUM TOTAL) (11/25/2021 6:21 AM CREDIT CONTROL CLERK) BUN 16 7 - 26 mg/dL 11/25/2021 6:50 AM [facility] Creatinine 0.99 0.71 - 1.16 mg/dL 11/25/2021 6:50 AM [facility] Sodium 142 136 - 145 mmol/L 11/25/2021 6:50 AM [facility] Potassium 4.0 3.5 - 4.5 mmol/L 11/25/2021 6:50 AM [facility] Chloride 105 98 - 107 mmol/L 11/25/2021 6:50 AM [facility] CO2 28 22 - 29 mmol/L 11/25/2021 6:50 AM [facility] Glucose 106 70 - 115 mg/dL 11/25/2021 6:50 AM [facility] Calcium 9.3 8.4 - 10.2 mg/dL 11/25/2021 6:50 AM [facility] Anion Gap 13 8 - 18 11/25/2021 6:50 AM [facility] BUN/Creatinine Ratio 16 7 - 23 11/25/2021 6:50 AM [facility] Osmolality Calculated 296 270 - 300 mOsm/kg 11/25/2021 6:50 AM [facility] eGFR by CKD-EPI 80(L) >=90 mL/min/1.7 3 m2 11/25/2021 6:50 AM [facility] Blood BLOOD SPECIMEN / Unknown Venipuncture / Unknown 11/25/2021 6:21 AM CREDIT CONTROL CLERK 11/25/2021 6:26 AM [facility] Roselyn Samson MD LAB - CHEMISTRY ORDERABLES [facility] [address] [place] [address], [facility] [phone] from Last 3 Months or Most Recently Relevant to Health Maintenance Care Teams Bioinformatics Programmer Relationship Specialty Start Date End Date Koko Paulson MD [address] [place] [address], [phone] PCP - General 11/27/21 Amberly Jin MD [address] [place] [address] Ophthalmology 01/16/22
--- OUTSIDE RECORDS SUMMARY | 2024-12-01 12:10 | XMS_ITS | CONTINUITY OF CARE DOCUMENT ---
Author Name derrick, derrick Address Unknown Organization [facility] Address [address] [place] [address] Phone [phone] Care Team Providers Care Insulation Manager Name Role Phone Jonny HORN, Levon Unavailable RADHA ARREOLA MD Unavailable RADHA ARREOLA MD Unavailable [phone] PROBLEMS Condition Status Date Provider Notes Atrial [...] In-person encounter Office Visit Kash Balderrama MD [facility] - In-person encounter Office Visit Tay Conley MD [facility] - In-person encounter Office Visit Tay Conley MD [facility] Atrial flutter, paroxysmal s/p ablation. On Eliquis - In-person encounter Office Visit Tay Conley MD [facility] - In-person encounter Office Visit Tay Conley MD [facility] Shortness of breath - In-person encounter Office Visit Jovanni Blilingsley MD [facility] Atrial flutter, paroxysmal s/p ablation. On [...] Hong blood pressure, systolic 132 mm[Hg] Larissa riley Hong Body Mass Index (Ratio) 42.38 kg/m2 [...] Nava pulse rate 72 /min Caron Ros [facility] oxygen saturation, oximetry 93 % Caron Vick [...] TABLET active two twice a day Laina [place] TIANNA LAMICTAL 100 MG ORAL TABLET completed [...] Payer name Policy type / Coverage type [employer] party ID [employer] insurance company [id number] [place] Medicare [id number] TREATMENT PLAN Date Name Performer FOLLOW UP faxed 02/05 0910: H is updated medication list for this problem includes: Sotalol Hcl 80 Mg Tabs (Sotalol hcl) ..... One tab. twice daily Diltiazem Hcl Er 180 Mg Oral [id number] (Diltiazem hcl) ..... One tab daily Lasix 40 Mg Tabs (Furosemide) ..... One tab daily Orders: C omplete Echo ([id number]) Tay Conley MD FOLLOW UP faxed 02/05 0910: H is updated medication list for this problem includes: Sotalol Hcl 80 Mg Tabs (Sotalol hcl) ..... One tab. twice daily Zocor 10 Mg Oral Tabs (Simvastatin) ..... Take one pill a day Diltiazem Hcl Er 180 Mg Oral [id number] (Diltiazem hcl) ..... One tab daily Tay Conley MD FOLLOW UP faxed 02/05 0910:In sinus rhythm today His updated medication list for this problem includes: Sotalol Hcl 80 Mg Tabs (Sotalol hcl) ..... One tab. twice daily Diltiazem Hcl Er 180 Mg Oral [id number] (Diltiazem hcl) ..... One tab daily Orders: C omplete Echo ([id number]) Tay Conlye MD EP follow up: T he following medications were removed from the medication list: Metoprolol Tartrate 25 Mg Tabs (Metoprolol tartrate) ..... One tab daily His updated medication list for this problem includes: Sotalol Hcl 80 Mg Tabs (Sotalol hcl) ..... One tab. twice daily Zocor 10 Mg Oral Tabs (Simvastatin) ..... Take one pill a day Diltiazem Hcl Er 180 Mg Oral [id number] (Diltiazem hcl) ..... One tab daily Lisinopril [...] daily Diltiazem Hcl Er 180 Mg Oral [id number] (Diltiazem hcl) ..... One tab daily Lisinopril [...] daily Diltiazem Hcl Er 180 Mg Oral [id number]-tck (Diltiazem hcl) ..... One tab daily Lisinopril [...] daily Diltiazem Hcl Er 180 Mg Oral [id number] (Diltiazem hcl) ..... One tab daily Lisinopril [...]
--- OUTSIDE RECORDS SUMMARY | 2024-12-01 12:10 | XMS_ITS | Encounter Summary ---
Author Organization [facility] Address [address] [place] [address] Phone Care Team Providers Care Lathe Set Up Person Name Role Phone Roselyn Samson MD Primary [...] on file Legal Sex Male 11:36 AM SWIMMING PROFESSOR Gender Identity Male 09/22/2020 12:54 PM SWIMMING PROFESSOR Sexual Orientation Not on file documented as of this encounter Plan of Treatment Not on file documented as of this encounter Procedures Procedure Name Priority Date/Time Associated Diagnosis Comments SCAN - LABS 05/30/2024 documented in this encounter Results * SCAN - LABS (05/30/2024) us Provider Scanning Final Result documented in this encounter Visit Diagnoses Not on filedocumented in this encounter Care Teams Lathe Set Up Person Relationship Specialty Start Date End Date Roselyn Samson MD [address] [facility] [address] [place] [address] PCP - General Family Medicine 02/04/21 documented as of this encounter
--- OUTSIDE RECORDS SUMMARY | 2024-12-01 12:10 | XMS_ITS | Encounter Summary ---
Author Organization [facility] Address [address] [place] [address] Phone Care Team Providers Care Telephone Service Representative Name Role Phone Roselyn Samson MD Primary Care Provider Encounter Details Date Type Department Care Team (Latest Contact Info) Description 04/21/2023 Orders Only [facility] Mariam Phillips NP [address] [place] [address] Social History Tobacco Use Types Packs/Day Years [...] on file Legal Sex Male 11:36 AM LEAN ENGINEER Gender Identity Male 09/22/2020 12:54 PM LEAN ENGINEER Sexual Orientation Not on file documented as of this encounter Plan of Treatment Not on file documented as of this encounter Procedures Procedure Name Priority Date/Time Associated Diagnosis Comments SCAN - LABS 04/21/2023 SCAN - RADIOLOGY/IMAGING 04/20/2023 documented in this encounter Results * SCAN - LABS (04/21/2023) us Mariam Phillips DIGESTER Final Result * SCAN - RADIOLOGY/IMAGING (04/20/2023) Anatomical Region Laterality Modality Other us Mariam Phillips DIGESTER Final Result documented in this encounter Visit Diagnoses Not on filedocumented in this encounter Care Teams Telephone Service Representative Relationship Specialty Start Date End Date Roselyn Samson MD [address] [facility] [address] [place] [address] PCP - General Family Medicine 02/04/21 documented as of this encounter
--- OUTSIDE RECORDS SUMMARY | 2024-12-01 12:10 | XMS_ITS | Referral Summary ---
Author Organization [facility] Address [address] [facility] [place] [address] Care Team Providers Care Microfilm Mounter Name Role Phone Koko Paulson MD Primary Care Provider [phone] Amberly Jin MD Unavailable [phone] Source Comments [facility],non-owned Affiliates and Associated Physician Practices is amultiple site organization consisting of ambulatory clinics and hospital sitesin [place], [place], [place] and [place]. This disclosure is being madepursuant to the Care Everywhere program and may not contain all information available regarding this patient. 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 Paroxysmal atrial fibrillation 12/17/2014 Back pain 12/17/2014 Essential (primary) hypertension 12/17/2014 Cardiomyopathy 12/17/2014 Congestive heart failure 12/17/2014 Diabetes mellitus 12/17/2014 Epistaxis 12/17/2014 Fatty liver 12/17/2014 Hypercholesterolemia 12/17/2014 Gallstones 12/17/2014 Obesity 12/17/2014 Other pulmonary embolism without acute cor pulmo nale 12/17/2014 Sleep apnea 12/17/2014 Immunizations Name Administration Dates Next Due [employer] primary monovalent 12+ yr 0.3mL Pur ple [...] Comments Blood Pressure 119/62 11/25/2021 12:30 PM DENT REMOVER Pulse 59 11/25/2021 12:30 PM DENT REMOVER Temperature 36.6 C (97.9 F) 11/25/2021 10:57 AM DENT REMOVER Respiratory Rate 20 11/25/2021 12:3 0 PM DENT REMOVER Oxygen Saturation 94% 11/25/2021 12: 30 PM DENT REMOVER Inhaled Oxygen Concentration 40% 12/2021 10:30 AM DENT REMOVER Weight 145.3 kg (320 lb 6.4 oz) 11/25/2021 6:04 AM DENT REMOVER Height 175.3 cm (5' 9 ) 11/25/2021 6:04 AM DENT REMOVER Body Mass Index 47.31 11/25/2021 6:04 AM DENT REMOVER Functional Status Functional Status Response Date of [...] PANEL (CALCIUM TOTAL) STAT 11/25/2021 6:21 AM DENT REMOVER Type 2 diabetes mellitus with other specified complication, with long-term current use of insulin (HCC) from Last 3 Months or Most Recently Relevant to Health Maintenance Results * (ABNORMAL) BASIC METABOLIC PANEL (CALCIUM TOTAL) (11/25/2021 6:21 AM DENT REMOVER) BUN 16 7 - 26 mg/dL 11/25/2021 6:50 AM [facility] Creatinine 0.99 0.71 - 1.16 mg/dL 11/25/2021 6:50 AM [facility] Sodium 142 136 - 145 mmol/L 11/25/2021 6:50 AM [facility] Potassium 4.0 3.5 - 4.5 mmol/L 11/25/2021 6:50 AM [facility] Chloride 105 98 - 107 mmol/L 11/25/2021 6:50 AM [facility] CO2 28 22 - 29 mmol/L 11/25/2021 6:50 AM [facility] Glucose 106 70 - 115 mg/dL 11/25/2021 6:50 AM [facility] Calcium 9.3 8.4 - 10.2 mg/dL 11/25/2021 6:50 AM [facility] Anion Gap 13 8 - 18 11/25/2021 6:50 AM [facility] BUN/Creatinine Ratio 16 7 - 23 11/25/2021 6:50 AM [facility] Osmolality Calculated 296 270 - 300 mOsm/kg 11/25/2021 6:50 AM [facility] eGFR by CKD-EPI 80(L) >=90 mL/min/1.7 3 m2 11/25/2021 6:50 AM DENT REMOVER [facility] Blood BLOOD SPECIMEN / Unknown Venipuncture / Unknown 11/25/2021 6:21 AM DENT REMOVER 11/25/2021 6:26 AM DENT REMOVER Roselyn Samson MD LAB - CHEMISTRY ORDERABLES Performing Organization Address City/State/[facility] Co de Phone Number [facility] [address] [place] [address], [facility] [phone] from Last 3 Months or Most Recently Relevant to Health Maintenance Care Teams Microfilm Mounter Relationship Specialty Start Date End Date Koko Paulson MD [address] [place] [address], [phone] PCP - General 11/27/21 Amberly Jin MD [address] [place] [address] Ophthalmology 01/16/22
--- OUTSIDE RECORDS SUMMARY | 2024-12-01 12:10 | XMS_ITS | Clinical Summary ---
Author Organization [facility] Address [address] [place] [address] Care Team Providers Care Rn Clinical Trials Name Role Phone Selvin Sen MD Primary [...] every morning. 04/22/2019 Active vitamin D2, ergocalciferol, [address] UNITS capsule Take 1 capsule by mouth [...] 0.6 oz pur e alcohol) [employer] Sex and Gender Information Value Date Recorded [...] age to complete this topic Insurance MEDICARE [facility] MEDICARE Care Teams Rn Clinical Trials Relationship Specialty Start Date End Date Motwani, Selvin K, MD [address] [place] [address] PCP - General FAMILY PRACTICE 05/25/20
--- OUTSIDE RECORDS SUMMARY | 2024-12-01 12:10 | XMS_ITS | Continuity of Care Document ---
Author Organization [facility] Address [address] [place] [address] Phone Care Team Providers Care Suction Plate Roller Hand Name Role Phone Lali Hancock Unavailable Unavailable Advance Directives Directive Yes / No Effective Date File Name No Information Encounters Encounter Description Practice Location Reason(s) For Visit Diagnoses Date Provider Providers Copied on Encounter [facility], [address], [place], [place], [id number], [place] tel:[phone] SEC [facility] No Information Apr-0 5-200 3 Karissa Escalera. [address] [facility] , [address], [place], [address], [place]. tel:[phone] Family History Family Member Type Diagnosis Age At Onset No Information Payers Payer name Insurance type Covered democrat ID Authoriza tion(s) [employer] SOI CI [id number] Social History Type Description Quantity Date Captured [...]
--- OUTSIDE RECORDS SUMMARY | 2024-12-01 12:10 | XMS_ITS | Encounter Summary ---
Author Organization [facility] Address [address] [place] [address] Phone Care Team Providers Care Home Support Worker Name Role Phone Roselyn Samson MD Primary Care Provider Encounter Details Date Type Department Care Team (Latest Contact Info) Description 04/19/2023 Orders Only [facility] Mariam Phillips NP [address] [place] [address] Social History Tobacco Use Types Packs/Day Years [...] on file Legal Sex Male 11:36 AM IRRIGATION INSTALLATION SPECIALIST Gender Identity Male 09/22/2020 12:54 PM IRRIGATION INSTALLATION SPECIALIST Sexual Orientation Not on file documented as of this encounter Plan of Treatment Not on file documented as of this encounter Procedures Procedure Name Priority Date/Time Associated Diagnosis Comments SCAN - NEUROLOGY 04/19/2023 SCAN - RADIOLOGY/IMAGING 04/18/2023 documented in this encounter Results * SCAN - NEUROLOGY (04/19/2023) Anatomical Region Laterality Modality Other Mariam Phillips NURSE PRACTITIONER ADULT Final Result * SCAN - RADIOLOGY/IMAGING (04/18/2023) Anatomical Region Laterality Modality Other us Provider Scanning Final Result documented in this encounter Visit Diagnoses Not on filedocumented in this encounter Care Teams Home Support Worker Relationship Specialty Start Date End Date Roselyn Samson MD [address] [facility] [address] [place] [address] PCP - General Family Medicine 02/04/21 documented as of this encounter
--- OUTSIDE RECORDS SUMMARY | 2024-12-01 12:10 | XMS_ITS | Encounter Summary ---
Author Organization [facility] Address [address] [place] [address] Phone Care Team Providers Care Assembler Erector Name Role Phone Roselyn Samson MD Primary Care Provider Encounter Details Date Type Department Care Team (Latest Contact Info) Description 04/23/2023 Orders Only [facility] Mariam Phillips, MUNA [address] [place] [address] Social History Tobacco Use Types Packs/Day Years [...] on file Legal Sex Male 11:36 AM PROVIDER RELATIONS ADVOCATE Gender Identity Male 09/22/2020 12:54 PM PROVIDER RELATIONS ADVOCATE Sexual Orientation Not on file documented as [...] on filedocumented in this encounter Care Teams Assembler Erector Relationship Specialty Start Date End Date Roselyn Samson MD [address] [place] [address] PCP - General Family Medicine 02/04/21 documented as of this encounter
[2024-12-01 12:39] VITALS: BP 137/62; PULSE 78; RESP 18; TEMP 36.9; O2SAT 97
== END 2024-12-01 12:41 | disposition home or self-care (01) ==
PROVIDERS: Emergency Provider Physician Assistant; PCP Family Medicine
DX: S83.91XA Sprain of unspecified site of right knee, initial encounter (principal); S09.90XA Unspecified injury of head, initial encounter; J96.11 Chronic respiratory failure with hypoxia; Z99.81 Dependence on supplemental oxygen; J98.4 Other disorders of lung; I48.0 Paroxysmal atrial fibrillation; I51.89 Other ill-defined heart diseases; E11.9 Type 2 diabetes mellitus without complications; E66.2 Morbid (severe) obesity with alveolar hypoventilation; Z68.41 Body mass index [BMI] 40.0-44.9, adult; N40.0 Benign prostatic hyperplasia without lower urinary tract symptoms; G47.33 Obstructive sleep apnea (adult) (pediatric); Z87.442 Personal history of urinary calculi; F32.A Depression, unspecified; Z96.1 Presence of intraocular lens; Z98.49 Cataract extraction status, unspecified eye; Z79.01 Long term (current) use of anticoagulants; Z79.84 Long term (current) use of oral hypoglycemic drugs; Z79.4 Long term (current) use of insulin; Z79.85 Long-term (current) use of injectable non-insulin antidiabetic drugs; Z79.899 Other long term (current) drug therapy; V00.811A Fall from moving wheelchair (powered), initial encounter
CPT/HCPCS: 70450; 71046; 72170; 73564; 99284; A9270

== ENCOUNTER 2025-05-09 17:08 | Emergency (ER) | payer MEDICARE, SELFPAY ==
--- OUTSIDE RECORDS SUMMARY | 2025-05-09 17:09 | XMS_ITS | Encounter Summary ---
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 Gender Identity Male 09/22/2020 12:54 PM WASH DRILLER HELPER Sexual Orientation Not on file documented as of this encounter Plan of Treatment Not on file documented as of this encounter Procedures Procedure Name Priority Date/Time Associated Diagnosis Comments SCAN - LABS 05/30/2024 documented in this encounter Results * SCAN - LABS (05/30/2024) us Provider Scanning Final Result documented in this encounter Visit Diagnoses Not on filedocumented in this encounter Care Teams Cigar Inspector Relationship Specialty Start Date End Date Roselyn Samson MD [address] [facility] [address] [place] [address] PCP - General Family Medicine 02/04/21 documented as of this encounter
--- OUTSIDE RECORDS SUMMARY | 2025-05-09 17:09 | XMS_ITS | Encounter Summary ---
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 Gender Identity Male 09/22/2020 12:54 PM MICROFILM CLERK Sexual Orientation Not on file documented as of this encounter Plan of Treatment Not on file documented as of this encounter Procedures Procedure Name Priority Date/Time Associated Diagnosis Comments SCAN - LABS 04/21/2023 SCAN - RADIOLOGY/IMAGING 04/20/2023 documented in this encounter Results * SCAN - LABS (04/21/2023) us Mariam Phillips NP Final Result * SCAN - RADIOLOGY/IMAGING (04/20/2023) Anatomical Region Laterality Modality Other us Mariam Phillips PRE BILLING SPECIALIST Final Result documented in this encounter Visit Diagnoses Not on filedocumented in this encounter Care Teams Territory Account Executive Relationship Specialty Start Date End Date Roselyn Samson MD [address] [facility] [address] [place] [address] PCP - General Family Medicine 02/04/21 documented as of this encounter
--- OUTSIDE RECORDS SUMMARY | 2025-05-09 17:09 | XMS_ITS | Encounter Summary ---
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
--- OUTSIDE RECORDS SUMMARY | 2025-05-09 17:09 | XMS_ITS | Encounter Summary ---
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 ENGINEER Gender Identity Male 09/22/2020 12:54 PM CLOUD ENGINEER Sexual Orientation Not on file documented as of this encounter Plan of Treatment Not on file documented as of this encounter Procedures Procedure Name Priority Date/Time Associated Diagnosis Comments SCAN - NEUROLOGY 04/19/2023 SCAN - RADIOLOGY/IMAGING 04/18/2023 documented in this encounter Results * SCAN - NEUROLOGY (04/19/2023) Anatomical Region Laterality Modality Other Mariam Phillips SALES EXECUTIVE Final Result * SCAN - RADIOLOGY/IMAGING (04/18/2023) Anatomical Region Laterality Modality Other Provider Scanning Final Result documented in this encounter Visit Diagnoses Not on filedocumented in this encounter Care Teams Blue Leather Sorter Relationship Specialty Start Date End Date Roselyn Samson MD [address] [facility] [address] [place] [address] PCP - General Family Medicine 02/04/21 documented as of this encounter
--- OUTSIDE RECORDS SUMMARY | 2025-05-09 17:10 | XMS_ITS | Continuity of Care Document ---
Author Organization [facility] Address [address] [place] [address] Phone Care Team Providers Care Plating Operator Name Role Phone Lali Hancock Unavailable Unavailable Advance Directives Directive Yes / No Effective Date File Name No Information Encounters Encounter Description Practice Location Reason(s) For Visit Diagnoses Date Provider Providers Copied on Encounter [facility], [address], [place], [place], [id number], [place] tel:[phone] SEC [facility] No Information Apr-0 5-200 3 Karissa Escalera. [address] [facility] , [address], [place], [address], [place]. tel:[phone] Family History Family Member Type Diagnosis Age At Onset No Information Payers Payer name Insurance type Covered green party ID Authoriza tion(s) [employer] SOI CI [id number] Social History Type Description Quantity Date Captured [...]
--- OUTSIDE RECORDS SUMMARY | 2025-05-09 17:10 | XMS_ITS | Patient Health Record ---
Author Organization [facility] Address [address] [place], [place] [address] Care Team Providers Care Supervisor Pumping Name Role Phone MONIQUE DAHL Unavailable [phone] Selvin Sen Unavailable Unavailable Reason For Referral No Information Plan Of Treatment No Information Insurance Providers Payer Name Payer Address Payer Phone Subscriber Number Group Number Insured Name Patient Relationship to Insured Coverage Start Date Coverage End Date [employer] [address] [place] [address] [phone] [id number] MAVIS BARGER Spouse - patient is the spouse of the insured Medicare Part B [place] [address] [place] [id number] ALYSE LEMUS Self - patient is the insured
--- OUTSIDE RECORDS SUMMARY | 2025-05-09 17:10 | XMS_ITS | Clinical Summary ---
Author Organization [facility] Address [address] [facility] [place] [address] Care Team Providers Care Real Estate Lawyer Name Role Phone Koko Paulson MD Primary Care Provider [phone] Amberly Jin MD Unavailable [phone] [facility],non-owned Affiliates and Associated Physician Practices is amultiple site organization consisting of ambulatory clinics and hospital sitesin [place] and [place]. This disclosure is being madepursuant to the Care Everywhere program and may not contain all information available regarding this patient. Last updated 18.[facility] Allergies Active Allergy Reactions Criticality Noted Date Comments Amiodarone Swelling Medium 02/11/2016 Povidone Iodine Urticaria Medium 07/23/2019 Naproxen Swelling High 12/17/2014 Shellfish-Derived Products Urticaria Medium 0 Medications * Be aware that medications may not be up to date on this document. Alwaysverify current medications with the patient. omeprazole (PRILOSEC) 40 MG capsule Take 1 capsule by mouth once daily 4 9 Active dilTIAZem coated beads 24hr (CARDIZEM CD) 240 MG capsule Take 240 mg by mouth once daily 4 9 Active sotalol (BETAPACE) 80 MG tablet Take 80 mg by mouth 2 times daily 5 9 Active ELIQUIS 2.5 MG tablet Take 2.5 mg by mouth 2 times daily 3 9 Active tamsulosin (FLOMAX) 0.4 MG capsule Take 0.4 mg by mouth once daily 6 9 Active oxyCODONE-acet aminophen (PERCOCET) 5-325 MG tablet Take 1 tablet by mouth every 6 hours as needed 0 9 Active BYDUREON BCISE 2 MG/0.85ML AUIJ Inject 2 mg subcutaneously every 7 days 2 9 Active furosemide (LASIX) 20 MG tablet Take 20 mg by mouth once daily Active finasteride (PROSCAR) 5 MG tablet Take 5 mg by mouth once daily Active Fluticasone-Um eclidin-Vilant (TRELEGY ELLIPTA) 100-62.5-25 MCG/INH Inhale 1 puff by mouth once daily Active albuterol HFA (PROVENTIL;ANNAMARIA TOLIN;PROAIR) 108 (90 Base) MCG/ACT inhaler Inhale 1 puff by mouth every 6 hours as needed 1 Active Basaglar KwikPen (BASAGLAR) pen Inject 60 Units subcutaneously once daily 1 Active metFORMIN (GLUCOPHAGE) 500 MG tablet 500 mg 2 times daily with morning and evening meal 1 Active PARoxetine (PAXIL) 20 MG tablet Take 20 mg by mouth once daily 1 Active atorvastatin (LIPITOR) 20 MG tablet Take 20 mg by mouth once daily 1 Active Active Problems Problem Noted Date Diagnosed Date Closed fracture of lateral malleolus 05/25/2021 Fracture of lower leg 05/25/2021 Nephrolithiasis 04/19/2021 Overview (05/25/2021): Added automatically from request for surgery [id number] Chronic diastolic heart failure 08/06/2020 Pain of left lower extremity 06/03/2020 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 07/27/20 19 Ectropion due to laxity of left eyelid 9 Shortness of breath 12/24/2014 Atherosclerotic heart diseas e of [place] coronary artery without angina pectoris 12/17/2014 Paroxysmal atrial fibrillation 12/17/2014 Back pain 12/17/2014 Essential (primary) hypertension 12/17/2014 Cardiomyopathy 12/17/2014 Congestive heart failure 12/17/2014 Diabetes mellitus 12/17/2014 Epistaxis 12/17/2014 Fatty liver 12/17/2014 Hypercholesterolemia 12/17/2014 Gallstones 12/17/2014 Obesity 12/17/2014 Other pulmonary embolism without acute cor pulmo nale 12/17/2014 Sleep apnea 12/17/2014 Immunizations Immunization Administration Dates Next Due Covid Appy Couple primary monovalent 12+ yr 0.3mL Pur ple [...] at Not on file Legal Sex Male 11:37 AM CDT Gender Identity Not on file Sexual Orientation Not on file Last Filed Vital Signs Vital Sign Reading Time Taken Comments Blood Pressure 119/62 11/25/2021 12:30 PM LEGAL BILLING COORDINATOR Pulse 59 11/25/2021 12:30 PM LEGAL BILLING COORDINATOR Temperature 36.6 C (97.9 F) 11/25/2021 10:57 AM LEGAL BILLING COORDINATOR Respiratory Rate 20 11/25/2021 12:3 0 PM LEGAL BILLING COORDINATOR Oxygen Saturation 94% 11/25/2021 12: 30 PM LEGAL BILLING COORDINATOR Inhaled Oxygen Concentration 40% 12/2021 10:30 AM LEGAL BILLING COORDINATOR Weight 145.3 kg (320 lb 6.4 oz) 11/25/2021 6:04 AM LEGAL BILLING COORDINATOR Height 175.3 cm (5' 9) 11/25/2021 6:04 AM LEGAL BILLING COORDINATOR Body Mass Index 47.31 11/25/2021 6:04 AM LEGAL BILLING COORDINATOR Plan of Treatment Health Maintenance Due Date Last Done Comments HEPATITIS C SCREENING 10/02/1963 DTAP/TDAP/TD VACCINES (1 - Tdap) 1966 PNEUMOCOCCAL VACCINE 50+ (1 of 1 - PCV) 1997 ZOSTER VACCINE (1 of 2) 1997 DIABETES-FOOT EXAM WITH MONOFILAMENT 05/25/2021 DIABETES-HGB A1C 05/25/2021 Respiratory Syncytial Virus (RSV) Vaccine Pt: or over 60 yrs (1 - 1-dose 75+ series) 2022 DIABETES-SERUM CREATININE 11/25/2022 11/25/2021 COVID-19 VACCINE (4 - 2023-2 5 season) 2024 08/16/2021, 12/23/2020, 12/01/2020 DEPRESSION SCREENING 09/24/2024 DIABETES - URINE PROTEIN SCREENING 09/24/2024 INFLUENZA VACCINE (#1) 2025 9, 06/18/2019, 07/23/2012 HEPATITIS B VACCINE Aged Out No longe r eligible based on patient's age to complete this topic HIB VACCINE Aged Out No longer eligi ble based on patient's age to complete this topic HPV VACCINE Aged Out No longer eligi ble based on patient's age to complete this topic MENINGOCOCCAL (Group B) VACCINE SHARED DECISION-MAKING Aged Out No longer eligible based on patient's age to complete this topic MENINGOCOCCAL GROUPS A/C/Y/W VACCINE Aged Out No longer eligible b ased on patient's age to complete this topic Procedures Procedure Name Priority Date/Time Associated Diagnosis Comments BASIC METABOLIC PANEL (CALCIUM TOTAL) STAT 11/25/2021 6:21 AM LEGAL BILLING COORDINATOR Type 2 diabetes mellitus with other specified complication, with long-term current use of insulin from Last 3 Months or Most Recently Relevant to Health Maintenance Results * (ABNORMAL) BASIC METABOLIC PANEL (CALCIUM TOTAL) (11/25/2021 6:21 AM LEGAL BILLING COORDINATOR) BUN 16 7 - 26 mg/dL 11/25/2021 6:50 AM [facility] Creatinine 0.99 0.71 - 1.16 mg/dL 11/25/2021 6:50 AM [facility] Sodium 142 136 - 145 mmol/L 11/25/2021 6:50 AM [facility] Potassium 4.0 3.5 - 4.5 mmol/L 11/25/2021 6:50 AM [facility] Chloride 105 98 - 107 mmol/L 11/25/2021 6:50 AM [facility] CO2 28 22 - 29 mmol/L 11/25/2021 6:50 AM [facility] Glucose 106 70 - 115 mg/dL 11/25/2021 6:50 AM [facility] Calcium 9.3 8.4 - 10.2 mg/dL 11/25/2021 6:50 AM [facility] Anion Gap 13 8 - 18 11/25/2021 6:50 AM [facility] BUN/Creatinine Ratio 16 7 - 23 11/25/2021 6:50 AM [facility] Osmolality Calculated 296 270 - 300 mOsm/kg 11/25/2021 6:50 AM [facility] eGFR by CKD-EPI 80(L) >=90 mL/min/1.7 3 m2 11/25/2021 6:50 AM [facility] Blood BLOOD SPECIMEN / Unknown Venipuncture / Unknown 11/25/2021 6:21 AM [facility] 11/25/2021 6:26 AM [facility] Roselyn Samson MD LAB - CHEMISTRY ORDERABL ES Final Result Performing Organization Address [facility]/State/ZIP Co de Phone Number [facility] [address] [place] [address], [facility] [phone] from Last 3 Months or Most Recently Relevant to Health Maintenance Insurance MEDICARE [facility] MEDIC[facility] Care Teams Real Estate Lawyer Relationship Specialty Start Date End Date Koko Paulson MD [address] [place] [phone] PCP - General 11/27/21 Amberly Jin MD [address] [place] [id number] Ophthalmology 01/16/22
--- OUTSIDE RECORDS SUMMARY | 2025-05-09 17:10 | XMS_ITS | Clinical Summary ---
Author Organization [facility] Address [address] [place] [address] Care Team Providers Care Ethylene Compressor Operator Name Role Phone Selvin Sen MD Primary [...] every morning. 04/22/2019 Active vitamin D2, ergocalciferol, 11963 UNITS capsule Take 1 capsule by mouth [...] 0.6 oz pur e alcohol) [employer] Sex and Gender Information Value Date Recorded [...] Td Vaccines ( 1 - Tdap) 1966 Pneumococcal Vaccine: 50+ Ye ars (1 of 1 - PCV) 1997 Zoster Vaccines (1 of 2) 1997 Annual Medicare Wellness Visit 2012 RSV Immunization or 60+ Years (1 - 1-dose 75+ series) 2022 COVID-19 Vaccine ( - 2023-2 5 season) 2024 Meningococcal B Vaccine Aged Out No l onger eligible based on patient's age to complete this topic Meningococcal Vaccine Aged Out No jake brad eligible based on patient's age to complete this topic RSV Immunizations Under 20 Months Aged Out No longer eligible based on patient's age to complete this topic Insurance MEDICARE [facility] MEDICARE Care Teams Ethylene Compressor Operator Relationship Specialty Start Date End Date Selvin Sen MD [address] [place] [address] PCP - General FAMILY PRACTICE 05/25/20
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
[2025-05-09 17:11] VITALS: BP 107/53; PULSE 62; RESP 26; TEMP 36.8; O2SAT 91
--- OUTSIDE RECORDS SUMMARY | 2025-05-09 18:47 | XMS_ITS | Encounter Summary ---
Author Organization [facility] Address [address] [place] [address] Phone Care Team Providers Care General Assistant Name Role Phone Roselyn Samson MD Primary [...] on file Legal Sex Male 11:36 AM WATER MANAGER Gender Identity Male 09/22/2020 12:54 PM WATER MANAGER Sexual Orientation Not on file documented as of this encounter Plan of Treatment Not on file documented as of this encounter Procedures Procedure Name Priority Date/Time Associated Diagnosis Comments SCAN - LABS 05/30/2024 documented in this encounter Results * SCAN - LABS (05/30/2024) us Provider Scanning Final Result documented in this encounter Visit Diagnoses Not on filedocumented in this encounter Care Teams General Assistant Relationship Specialty Start Date End Date Roselyn Samson MD [address] [facility] [address] [place] [address] PCP - General Family Medicine 02/04/21 documented as of this encounter
--- OUTSIDE RECORDS SUMMARY | 2025-05-09 18:47 | XMS_ITS | Encounter Summary ---
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
--- OUTSIDE RECORDS SUMMARY | 2025-05-09 18:47 | XMS_ITS | Continuity of Care Document ---
Author Organization [facility] Address [address] [place] [address] Phone Care Team Providers Care Rubber Molder Name Role Phone Lali Hancock Unavailable Unavailable Advance Directives Directive Yes / No Effective Date File Name No Information Encounters Encounter Description Practice Location Reason(s) For Visit Diagnoses Date Provider Providers Copied on Encounter [facility], [address], [place], [place], [id number], [place] tel:[phone] [address] [facility] No Information Apr-0 5-200 3 Karissa Escalera. [address] [facility] , [address], [place], [address], [place]. tel:[phone] Family History Family Member Type Diagnosis Age At Onset No Information Payers Payer name Insurance type Covered green party ID Authoriza tion(s) [employer] SOI CI [id number] Social History Type Description Quantity Date Captured [...]
--- OUTSIDE RECORDS SUMMARY | 2025-05-09 18:47 | XMS_ITS | Encounter Summary ---
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 Gender Identity Male 09/22/2020 12:54 PM SENIOR SOFTWARE MANAGER Sexual Orientation Not on file documented as of this encounter Plan of Treatment Not on file documented as of this encounter Procedures Procedure Name Priority Date/Time Associated Diagnosis Comments SCAN - NEUROLOGY 04/19/2023 SCAN - RADIOLOGY/IMAGING 04/18/2023 documented in this encounter Results * SCAN - NEUROLOGY (04/19/2023) Anatomical Region Laterality Modality Other Mariam Phillips SANDBLASTER SUPERVISOR Final Result * SCAN - RADIOLOGY/IMAGING (04/18/2023) Anatomical Region Laterality Modality Other Provider Scanning Final Result documented in this encounter Visit Diagnoses Not on filedocumented in this encounter Care Teams Pharmacologist Relationship Specialty Start Date End Date Roselyn Samson MD [address] [facility] [address] [place] [address] PCP - General Family Medicine 02/04/21 documented as of this encounter
--- OUTSIDE RECORDS SUMMARY | 2025-05-09 18:47 | XMS_ITS | Encounter Summary ---
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
--- OUTSIDE RECORDS SUMMARY | 2025-05-09 18:48 | XMS_ITS | Clinical Summary ---
Author Organization [facility] Address [address] [place] [address] Care Team Providers Care Chip Loft Worker Name Role Phone Selvin Sen MD Primary [...] every morning. 04/22/2019 Active vitamin D2, ergocalciferol, 86730 UNITS capsule Take 1 capsule by mouth [...] 0.6 oz pur e alcohol) [employer] Sex and Gender Information Value Date Recorded [...] age to complete this topic Insurance MEDICARE [facility] MEDICARE Care Teams Chip Loft Worker Relationship Specialty Start Date End Date Selvin Sen MD [address] [place] [address] PCP - General FAMILY PRACTICE 05/25/20
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
--- OUTSIDE RECORDS SUMMARY | 2025-05-09 18:48 | XMS_ITS | Clinical Summary ---
Author Organization [facility] Address [address] [facility] [place] [address] Care Team Providers Care Motor Vehicle Field Representative Name Role Phone Koko Paulson MD Primary Care Provider [phone] Amberly Jin MD Unavailable [phone] Source Comments [facility],non-owned Affiliates and Associated Physician Practices is amultiple site organization consisting of ambulatory clinics and hospital sitesin [place], [place], [place] and [place]. This disclosure is being madepursuant to the Care Everywhere program and may not contain all information available regarding this patient. 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 Paroxysmal atrial fibrillation 12/17/2014 Back pain 12/17/2014 Essential (primary) hypertension 12/17/2014 Cardiomyopathy 12/17/2014 Congestive heart failure 12/17/2014 Diabetes mellitus 12/17/2014 Epistaxis 12/17/2014 Fatty liver 12/17/2014 Hypercholesterolemia 12/17/2014 Gallstones 12/17/2014 Obesity 12/17/2014 Other pulmonary embolism without acute cor pulmo nale 12/17/2014 Sleep apnea 12/17/2014 Immunizations Immunization Administration Dates Next Due Covid Maxtena primary monovalent 12+ yr 0.3mL Pur ple [...] Comments Blood Pressure 119/62 11/25/2021 12:30 PM VENEER SHEET REPAIRER Pulse 59 11/25/2021 12:30 PM VENEER SHEET REPAIRER Temperature 36.6 C (97.9 F) 11/25/2021 10:57 AM VENEER SHEET REPAIRER Respiratory Rate 20 11/25/2021 12:3 0 PM VENEER SHEET REPAIRER Oxygen Saturation 94% 11/25/2021 12: 30 PM VENEER SHEET REPAIRER Inhaled Oxygen Concentration 40% 12/2021 10:30 AM VENEER SHEET REPAIRER Weight 145.3 kg (320 lb 6.4 oz) 11/25/2021 6:04 AM VENEER SHEET REPAIRER Height 175.3 cm (5' 9) 11/25/2021 6:04 AM VENEER SHEET REPAIRER Body Mass Index 47.31 11/25/2021 6:04 AM VENEER SHEET REPAIRER Plan of Treatment Health Maintenance Due Date [...] PANEL (CALCIUM TOTAL) STAT 11/25/2021 6:21 AM VENEER SHEET REPAIRER Type 2 diabetes mellitus with other specified complication, with long-term current use of insulin from Last 3 Months or Most Recently Relevant to Health Maintenance Results * (ABNORMAL) BASIC METABOLIC PANEL (CALCIUM TOTAL) (11/25/2021 6:21 AM VENEER SHEET REPAIRER) BUN 16 7 - 26 mg/dL 11/25/2021 6:50 AM [facility] Creatinine 0.99 0.71 - 1.16 mg/dL 11/25/2021 6:50 AM [facility] Sodium 142 136 - 145 mmol/L 11/25/2021 6:50 AM [facility] Potassium 4.0 3.5 - 4.5 mmol/L 11/25/2021 6:50 AM [facility] Chloride 105 98 - 107 mmol/L 11/25/2021 6:50 AM [facility] CO2 28 22 - 29 mmol/L 11/25/2021 6:50 AM [facility] Glucose 106 70 - 115 mg/dL 11/25/2021 6:50 AM [facility] Calcium 9.3 8.4 - 10.2 mg/dL 11/25/2021 6:50 AM [facility] Anion Gap 13 8 - 18 11/25/2021 6:50 AM [facility] BUN/Creatinine Ratio 16 7 - 23 11/25/2021 6:50 AM [facility] Osmolality Calculated 296 270 - 300 mOsm/kg 11/25/2021 6:50 AM [facility] eGFR by CKD-EPI 80(L) >=90 mL/min/1.7 3 m2 11/25/2021 6:50 AM [facility] Blood BLOOD SPECIMEN / Unknown Venipuncture / Unknown 11/25/2021 6:21 AM [facility] 11/25/2021 6:26 AM [facility] Roselyn Samson MD LAB - CHEMISTRY ORDERABL ES Final Result Performing Organization Address [facility]/State/ZIP Co de Phone Number [facility] [address] [place] [address], [facility] [phone] from Last 3 Months or Most Recently Relevant to Health Maintenance Insurance MEDICARE [facility] MEDICARE Care Teams Motor Vehicle Field Representative Relationship Specialty Start Date End Date Koko Paulson MD [address] [place] [phone] PCP - General 11/27/21 Amberly Jin MD [address] [place] [phone] Ophthalmology 01/16/22
== END 2025-05-09 18:42 | disposition left against medical advice (07) ==
LOC: ANHED 18:46
PROVIDERS: PCP Family Medicine
DX: S59.902A Unspecified injury of left elbow, initial encounter (principal)
CPT/HCPCS: 99199

== ENCOUNTER 2025-05-10 09:01 | Emergency (ER) | payer MEDICARE, SELFPAY ==
--- NOTE | ~2025-05-10 | XR_ITS ---
Portable chest x-ray Comparison: 12/01/2024 Clinical History: Shortness of breath Findings: Moderate right pleural effusion and minimal left pleural effusion are present. There is ri ght midlung scarring. Probable minimal pulmonary edema. Cardiomediastinal silhouette is stable. Bone s and soft tissues are unremarkable. Impression: Moderate right pleural effusion and minimal left pleural effusion. Mild pulmonary edema with right midlung scarring. Reviewed, dictated and finalized at location M. Impression: Moderate right pleural effusion and minimal left pleural effusion. Mild pulmonary edema with right midlung scarring.
--- NOTE | ~2025-05-10 | CT_ITS ---
Non-contrast Head CT History: Status post fall COMPARISON: 12/01/2024 Technique: Axial non-contrast imaging of the brain was performed. Dose reduction technique was used on this scan by utilizing automated exposure control and iterative reconstruction technique. The dose -length product (DLP) was 999.76 mGy-cm. Findings: There is no evidence of intracranial hemorrhage, mass lesion, or acute infarct. Brain par enchyma appears normal. The ventricles and subarachnoid spaces are normal in size. The calvarium ap pears normal. Left maxillary sinus disease present. The remaining visualized paranasal sinuses are cl ear. Bilateral mastoid effusions are present. Impression: No intracranial abnormality seen. Left maxillary sinus disease. Bilateral mastoid effusions. Reviewed, dictated and finalized at [facility]. Impression: No intracranial abnormality seen. Left maxillary sinus disease. Bilateral mastoid effusions.
--- NOTE | ~2025-05-10 | CT_ITS ---
Noncontrast CT scan of the thoracic spine CLINICAL HISTORY: Status post fall TECHNIQUE: Axial noncontrast imaging of the thoracic spine was performed. Sagittal and coronal reform atted images were constructed. Dose reduction technique was used on this scan by utilizing automated exposure control and iterative reconstruction technique. The dose-length product (DLP) was 999.76 mGy -cm. FINDINGS: No acute fracture or subluxation. There is extensive anterior flowing osteophytes throughou t the thoracic spine, compatible extensive DISH. Intervertebral disc spaces are well preserved with m inimal degenerative changes. No definite significant disc bulge or herniation seen. No definite canal stenosis or cord compression . 6 mm right lower lobe pulmonary nodule present (axial image 33). There is bibasilar consolidation, li salas atelectatic change, left worse than right, with minimal left pleural effusion. Impression: No acute fracture or subluxation. Extensive DISH. 6 mm right lower lobe pulmonary nodule. According to Fleischner Society criteria, for a low-risk elena ent, recommend follow CT scan in 6-12 months, then consider additional 18-[address] For a high-ris k patient, follow-up CT scans at both 6-12 months and 18-24 months are recommended. Reviewed, dictated and finalized at location M. Impression: No acute fracture or subluxation. Extensive DISH. 6 mm right lower lobe pulmonary nodule. According to Fleischner Society criteri a, for a low-risk patient, recommend follow CT scan in 6-12 months, then consid er additional 18-[address] For a high-risk patient, follow-up CT scans at philip th 6-12 months and 18-24 months are recommended.
--- NOTE | ~2025-05-10 | CT_ITS ---
Noncontrast CT scan of the cervical spine Technique: Multiple contiguous axial [address] images of the cervical spine were obtained and rec onstructed in 2D sagittal and coronal planes on the acquisition scanner. Dose reduction technique was used on this scan by utilizing automated exposure control, adjustment of the mA and/or kV according to patient size. The dose-length product (DLP) was 999.76 mGy-cm. Clinical History: Pain Findings: No fractures or dislocations there is moderate degenerative changes reticulation of the od ontoid process with the anterior arch of C1. There is advanced degenerative disc narrowing at C5-C6. There are scattered facet joint degenerative changes. There is bilateral neural foraminal narrowing a t C5-C6. No prevertebral soft tissue swelling. Impression: No fracture or subluxation of the cervical spine. Degenerative changes, as above. Reviewed, dictated and finalized at [facility]. Impression: No fracture or subluxation of the cervical spine. Degenerative changes, as above.
--- NOTE | ~2025-05-10 | CT_ITS ---
CT Scan of the Chest without Contrast: Clinical Indication: Trauma Technique: Contiguous sections were acquired throughout the chest without intravenous contrast. Dose reduction technique was used on this scan by utilizing automated exposure control and iterative recon struction technique. The dose-length product (DLP) was 999.76 mGy-cm. Findings: There is no evidence of any significant mediastinal, hilar or axillary lymphadenopathy. Small calcifi ed mediastinal/hilar lymph nodes are present. Coronary artery calcifications are present. No pericard ial effusion. There is minimal left pleural effusion with bibasilar consolidation, left worse than right, with like ly bibasilar atelectatic change.. 6 mm right upper lobe pulmonary nodule present (axial image 36). Images through the upper abdomen reveal no abnormalities. No acute fracture seen. Chronic right rib f racture deformities are present. Impression: No acute rib fracture. Minimal left pleural effusion with bibasilar consolidation and/or scarring. 6 mm right upper lobe pulmonary nodule, stable since prior exam from 04/18/2023. Reviewed, dictated and finalized at location . Impression: No acute rib fracture. Minimal left pleural effusion with bibasilar consolidation and/or scarring. 6 mm right upper lobe pulmonary nodule, stable since prior exam from 04/18/2023.
--- OUTSIDE RECORDS SUMMARY | 2025-05-10 09:04 | XMS_ITS | Continuity of Care Document ---
Author Organization [facility] Address [address] [place] [address] Phone Care Team Providers Care Weeder Name Role Phone Lali Hancock Unavailable Unavailable Advance Directives Directive Yes / No Effective Date File Name No Information Encounters Encounter Description Practice Location Reason(s) For Visit Diagnoses Date Provider Providers Copied on Encounter [facility], [address], [place], [place], [id number], [place] tel:[phone] [facility] No Information Apr-0 5-200 3 Karissa Escalera. [address] , [address], [place], [address], [place]. tel:[phone] Family History Family Member Type Diagnosis Age At Onset No Information Payers Payer name Insurance type Covered republican ID Authoriza tion(s) [employer] SOI CI [id number] Social History Type Description Quantity Date Captured [...]
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
--- OUTSIDE RECORDS SUMMARY | 2025-05-10 09:04 | XMS_ITS | Encounter Summary ---
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 Gender Identity Male 09/22/2020 12:54 PM LINE SERVICE SUPERVISOR Sexual Orientation Not on file documented as of this encounter Plan of Treatment Not on file documented as of this encounter Procedures Procedure Name Priority Date/Time Associated Diagnosis Comments SCAN - NEUROLOGY 04/19/2023 SCAN - RADIOLOGY/IMAGING 04/18/2023 documented in this encounter Results * SCAN - NEUROLOGY (04/19/2023) Anatomical Region Laterality Modality Other Mariam Phillips LOAN PROCESSING SUPERVISOR Final Result * SCAN - RADIOLOGY/IMAGING (04/18/2023) Anatomical Region Laterality Modality Other Provider Scanning Final Result documented in this encounter Visit Diagnoses Not on filedocumented in this encounter Care Teams Cribber Relationship Specialty Start Date End Date Roselyn Samson MD [address] [facility] [address] [place] [address] PCP - General Family Medicine 02/04/21 documented as of this encounter
--- OUTSIDE RECORDS SUMMARY | 2025-05-10 09:04 | XMS_ITS | Clinical Summary ---
Author Organization [facility] Address [address] [facility] [place] [address] Care Team Providers Care Electrician Helper Automotive Name Role Phone Koko Paulson MD Primary Care Provider [phone] Amberly Jin MD Unavailable [phone] Source Comments [facility],non-owned Affiliates and Associated Physician Practices is amultiple site organization consisting of ambulatory clinics and hospital sitesin [place], [place], [place] and [place]. This disclosure is being madepursuant to the Care Everywhere program and may not contain all information available regarding this patient. 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/2014 Paroxysmal atrial fibrillation 12/17/2014 Back pain 12/17/2014 Essential (primary) hypertension 12/17/2014 Cardiomyopathy 12/17/2014 Congestive heart failure 12/17/2014 Diabetes mellitus 12/17/2014 Epistaxis 12/17/2014 Fatty liver 12/17/2014 Hypercholesterolemia 12/17/2014 Gallstones 12/17/2014 Obesity 12/17/2014 Other pulmonary embolism without acute cor pulmo nale 12/17/2014 Sleep apnea 12/17/2014 Immunizations Immunization Administration Dates Next Due Covid Tempered Mind primary monovalent 12+ yr 0.3mL Pur ple [...] Comments Blood Pressure 119/62 11/25/2021 12:30 PM GOLF COURSE STARTER Pulse 59 11/25/2021 12:30 PM GOLF COURSE STARTER Temperature 36.6 C (97.9 F) 11/25/2021 10:57 AM GOLF COURSE STARTER Respiratory Rate 20 11/25/2021 12:3 0 PM GOLF COURSE STARTER Oxygen Saturation 94% 11/25/2021 12: 30 PM GOLF COURSE STARTER Inhaled Oxygen Concentration 40% 12/2021 10:30 AM GOLF COURSE STARTER Weight 145.3 kg (320 lb 6.4 oz) 11/25/2021 6:04 AM GOLF COURSE STARTER Height 175.3 cm (5' 9) 11/25/2021 6:04 AM GOLF COURSE STARTER Body Mass Index 47.31 11/25/2021 6:04 AM GOLF COURSE STARTER Plan of Treatment Health Maintenance Due Date [...] PANEL (CALCIUM TOTAL) STAT 11/25/2021 6:21 AM GOLF COURSE STARTER Type 2 diabetes mellitus with other specified complication, with long-term current use of insulin from Last 3 Months or Most Recently Relevant to Health Maintenance Results * (ABNORMAL) BASIC METABOLIC PANEL (CALCIUM TOTAL) (11/25/2021 6:21 AM GOLF COURSE STARTER) BUN 16 7 - 26 mg/dL 11/25/2021 6:50 AM [facility] Creatinine 0.99 0.71 - 1.16 mg/dL 11/25/2021 6:50 AM [facility] Sodium 142 136 - 145 mmol/L 11/25/2021 6:50 AM [facility] Potassium 4.0 3.5 - 4.5 mmol/L 11/25/2021 6:50 AM [facility] Chloride 105 98 - 107 mmol/L 11/25/2021 6:50 AM [facility] CO2 28 22 - 29 mmol/L 11/25/2021 6:50 AM [facility] Glucose 106 70 - 115 mg/dL 11/25/2021 6:50 AM [facility] Calcium 9.3 8.4 - 10.2 mg/dL 11/25/2021 6:50 AM [facility] Anion Gap 13 8 - 18 11/25/2021 6:50 AM [facility] BUN/Creatinine Ratio 16 7 - 23 11/25/2021 6:50 AM [facility] Osmolality Calculated 296 270 - 300 mOsm/kg 11/25/2021 6:50 AM [facility] eGFR by CKD-EPI 80(L) >=90 mL/min/1.7 3 m2 11/25/2021 6:50 AM [facility] Blood BLOOD SPECIMEN / Unknown Venipuncture / Unknown 11/25/2021 6:21 AM [facility] 11/25/2021 6:26 AM [facility] Roselyn Samson MD LAB - CHEMISTRY ORDERABL ES Final Result Performing Organization Address [facility]/State/ZIP Co de Phone Number [facility] [address] [place] [address], [facility] [phone] from Last 3 Months or Most Recently Relevant to Health Maintenance Insurance MEDICARE [facility] MEDICARE Care Teams Electrician Helper Automotive Relationship Specialty Start Date End Date Koko Paulson MD [address] [place] [phone] PCP - General 11/27/21 Amberly Jin MD [address] [place] [address] Ophthalmology 01/16/22
--- OUTSIDE RECORDS SUMMARY | 2025-05-10 09:04 | XMS_ITS | Encounter Summary ---
Author Organization [facility] Address [address] [place] [address] Phone Care Team Providers Care Boiler Control Room Operator Name Role Phone Roselyn Samson MD Primary Care Provider Encounter Details Date Type Department Care Team (Latest Contact Info) Description 04/23/2023 Orders Only [facility] Mariam Phillips NP [address] [place] [address] Social History Tobacco Use Types Packs/Day Years [...] on file Legal Sex Male 11:36 AM DIE OPERATOR Gender Identity Male 09/22/2020 12:54 PM DIE OPERATOR Sexual Orientation Not on file documented [...] on filedocumented in this encounter Care Teams Boiler Control Room Operator Relationship Specialty Start Date End Date Roselyn aSmson MD [address] [facility] [address] [place] [address] PCP - General Family Medicine 02/04/21 documented as of this encounter
--- OUTSIDE RECORDS SUMMARY | 2025-05-10 09:04 | XMS_ITS | Encounter Summary ---
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
--- OUTSIDE RECORDS SUMMARY | 2025-05-10 09:04 | XMS_ITS | Encounter Summary ---
Author Organization [facility] Address [address] [place] [address] Phone Care Team Providers Care Tile Layer Name Role Phone Roselyn Samson MD Primary [...] on file Legal Sex Male 11:36 AM TERMINAL PRESS OPERATOR Gender Identity Male 09/22/2020 12:54 PM TERMINAL PRESS OPERATOR Sexual Orientation Not on file documented as of this encounter Plan of Treatment Not on file documented as of this encounter Procedures Procedure Name Priority Date/Time Associated Diagnosis Comments SCAN - LABS 05/30/2024 documented in this encounter Results * SCAN - LABS (05/30/2024) us Provider Scanning Final Result documented in this encounter Visit Diagnoses Not on filedocumented in this encounter Care Teams Tile Layer Relationship Specialty Start Date End Date Roselyn Samson MD [address] [facility] [address] [place] [address] PCP - General Family Medicine 02/04/21 documented as of this encounter
--- OUTSIDE RECORDS SUMMARY | 2025-05-10 09:05 | XMS_ITS | Clinical Summary ---
Author Organization [facility] Address [address] [place] [address] Care Team Providers Care Hospital Liaison Name Role Phone Selvin Sen MD Primary [...] every morning. 04/22/2019 Active vitamin D2, ergocalciferol, 08892 UNITS capsule Take 1 capsule by mouth [...] 0.6 oz pur e alcohol) [employer] Sex and Gender Information Value Date Recorded [...] age to complete this topic Insurance MEDICARE [facility] MEDICARE Care Teams Hospital Liaison Relationship Specialty Start Date End Date Selvin Sen MD [address] [place] [address] PCP - General FAMILY PRACTICE 05/25/20
--- OUTSIDE RECORDS SUMMARY | 2025-05-10 09:05 | XMS_ITS | Patient Health Record ---
Author Organization [facility] Address [address] [place], [place] [address] Care Team Providers Care Airline Customer Service Agent Name Role Phone MONIQUE DAHL Unavailable [phone] Selvin Sen Unavailable Unavailable Reason For Referral No Information Plan Of Treatment No Information Insurance Providers Payer Name Payer Address Payer Phone Subscriber Number Group Number Insured Name Patient Relationship to Insured Coverage Start Date Coverage End Date [employer] [address] [place] [address] [id number] MAVIS BARGER Spouse - patient is the spouse of the insured Medicare Part B [place] [address] [place] [phone] [id number] ALYSE LEMUS Self - patient is the insured
--- NOTE | 2025-05-10 09:08 | ECG_ITS ---
Test Date: 2025-05-10 09:15:15 Measurements Intervals [place] Rate: 72 P: 0 DE: 160 QRS: 21 QRSD: 153 T: 33 QT: 402 QTc: 442 Interpretive Statements SINUS RHYTHM RIGHT BUNDLE BRANCH BLOCK ABNORMAL ECG Compared to ECG 05/24/2024 09:40:50 No significant changes Electronically Signed On 05-10-2025 14:52:20 CDT by Rosalino Velasquez D.O.
[2025-05-10 09:10] VITALS: BP 120/49; PULSE 71; RESP 22; TEMP 36.7; O2SAT 97
[2025-05-10 09:47] LABS: Hematocrit 44.4 % (42.0-52.0); Hemoglobin 13.6 g/dL (14.0-18.0); Immature Granulocyte Percent A 0.4 % (0-0.5); Lymphocytes Absolute Auto 1.29 K/mm3 (0.9-3.2); Mean Corpuscular HGB Conc 30.6 g/dl (32-36); Mean Corpuscular Hemoglobin 29.4 pg (26-34); Mean Corpuscular Volume 95.9 fl (80-100); Nucleated Red Blood Cells Absolute Auto 0.000 K/mm3 (0.0-0.012); Nucleated Red Blood Cells Perc 0.0 % (0.0-0.2); Platelet Count Result 231 k/mm3 (150-375); Red Blood Count 4.63 M/mm3 (4.6-6.20); White Blood Count 8.4 K/mm3 (4.5-10.0)
[2025-05-10 09:52] VITALS: O2SAT 97
[2025-05-10 09:58] LABS: INR 1.2; Prothrombin Time 14.9 Seconds (11.1-14.7)
[2025-05-10 09:59] LABS: Partial Thromboplastin Time 34.0 Seconds (22.3-36.8)
--- NOTE | 2025-05-10 10:00 | ED_ITS ---
HPI - General Adult General Chief complaint: Shortness of Breath/Dyspnea Stated complaint: i think i have pneumonia Time Seen by Provider: 05/10/25 09:52 Source: patient Mode of arrival: ambulatory Limitations: no limitations History of Present Illness HPI narrative: 79 years old white male came to the ED from home with his by private car complaining of severe pain at the neck, left shoulder, upper back and left chest after falling 1 week ago. Patient lost his balance while trying to manage his wheelchair landed on the left side of his body on and has been hurting since and gradually getting worse with productive cough. History of COPD on chronic 6 L oxygen, diabetes, AFib, on Eliquis, hypertension. Patient denies any fever, chills, nausea, vomiting Related Data Home Medications ?Medication ?Instructions ?Recorded ?Confirmed ?Last Taken ?Type linaclotide 290 mcg capsule 290 mcg PO QAM 08/10/24 02/19/25 Unknown History (Linzess) empagliflozin 10 mg tablet 10 mg PO DAILY 02/19/25 02/19/25 Unknown History (Jardiance) Allergies Allergy/AdvReac Type Severity Reaction Status Date / Time amiodarone Allergy Unknown Swelling Verified 02/19/25 07:31 iodine Allergy Unknown Rash Verified 02/19/25 07:31 naproxen Allergy Unknown Hives Verified 02/19/25 07:31 Contrast Media Allergy Unknown Unknown Uncoded 02/19/25 07:31 shell fish Allergy Unknown urticaria Uncoded 02/19/25 07:31 Review of Systems 2 Review of Systems: All systems reviewed & are unremarkable except as noted in HPI and below PMFSH Past Medical History Medical History DONITA (obstructive sleep apnea) Chronic respiratory failure with hypoxia, on home oxygen therapy Depression Obstructive sleep apnea Diastolic dysfunction Insulin dependent type 2 diabetes mellitus Benign prostatic hyperplasia Chronic anticoagulation Paroxysmal atrial fibrillation Vitiligo Elevated antinuclear antibody (NATALIE) level Obesity hypoventilation syndrome Inflammatory arthropathy Restrictive lung disease secondary to obesity Generalized osteoarthritis of multiple sites Kidney stone Surgical History Surgical History History of cataract extraction with lens replacement History of cardiac radiofrequency ablation (RFA) History of back surgery Family History Family History Father Patient's father is Sibling Patient's sister is Mother Family history of Alzheimer's disease Social History Social History Social History: Surrogate medical decision maker: Yarely Fox. Code status: Full code. Smoking status: Never smoker Second hand tobacco smoke exposure: No Alcohol intake: never Substance use: never Substance use type: does not use Do You Feel Safe in your Home?: Yes Lack of Transportation: No Lack of Food: Never True Current Housing: I Have Housing Concerned About Future Housing: No Difficulty Paying Gas/Electric Bills: No Difficulty Paying for Meds: No Currently Unemployed: No Education: Grade School Difficulty w/ Childcare or Family Care: No Living arrangements: with family Additional living arrangements comments: Lives with spouse in [place]. They have 2 sons. 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 Spiritual care concerns: No Exam 2 Narrative: General appearance: Well-developed, well-nourished looks in pain Skin: Normal color Head: Normocephalic, occipital tenderness and bruises Eyes: Clear conjunctiva ENT: Oropharynx normal, ears normal, nose normal, nasal cannula, 6 L Neck: Supple, diffuse tenderness posteriorly Chest and respiratory: Airway patent, no respiratory distress, no accessory muscle use diminution of air entry bilaterally, because of inability to take deep breath because of pain at the left chest Heart: Regular rate/rhythm Abdomen: Soft, nontender, no organomegaly, quiet bowel sounds Vascular: Normal peripheral pulses, normal capillary refill. Musculoskeletal: Limited range of motion of left upper extremity because of pain Neurologic: Alert and oriented ?3, TECHNICAL OPERATIONS SPECIALIST is normal as tested, no gross motor deficit Course Vital Signs Vital signs: Vital Signs Temperature 36.7 C 05/10/25 09:10 Pulse Rate 71 05/10/25 09:10 Respiratory Rate 22 H 05/10/25 09:10 Blood Pressure 120/49 L 05/10/25 09:10 Pulse Oximetry 97 05/10/25 09:10 Oxygen Delivery Nasal Cannula 05/10/25 09:10 Oxygen Flow Rate 6 05/10/25 09:10 Temperature 36.7 C 05/10/25 09:10 Pulse Rate 71 05/10/25 09:10 Respiratory Rate 22 H 05/10/25 09:10 Blood Pressure 120/49 L 05/10/25 09:10 Pulse Oximetry 97 05/10/25 09:52 Oxygen Delivery Nasal Cannula 05/10/25 09:52 Oxygen Flow Rate 6 05/10/25 09:52 Medical Decision Making Vital Signs Vital Signs: Vital Signs Temperature 36.7 C 05/10/25 09:10 Pulse Rate 71 05/10/25 09:10 Respiratory Rate 22 H 05/10/25 09:10 Blood Pressure 120/49 L 05/10/25 09:10 Pulse Oximetry 97 05/10/25 09:10 Oxygen Delivery Nasal Cannula 05/10/25 09:10 Oxygen Flow Rate 6 05/10/25 09:10 Temperature 36.7 C 05/10/25 09:10 Pulse Rate 71 05/10/25 09:10 Respiratory Rate 22 H 05/10/25 09:10 Blood Pressure 120/49 L 05/10/25 09:10 Pulse Oximetry 97 05/10/25 09:52 Oxygen Delivery Nasal Cannula 05/10/25 09:52 Oxygen Flow Rate 6 05/10/25 09:52 Lab Data 05/10/25 09:35 05/10/25 09:35 Labs: Lab Results 05/10/25 05/10/25 05/10/25 Range/Units 09:35 09:37 09:57 WBC 8.4 (4.5-10.0) K/mm3 RBC 4.63 (4.6-6.20) M/mm3 Hgb 13.6 L (14.0-18.0) g/dL Hct 44.4 (42.0-52.0) % MCV 95.9 (80-100) fl MCH 29.4 (26-34) pg MCHC 30.6 L (32-36) g/dl RDW 15.5 H (11.5-14.5) % Plt Count 231 (150-375) k/mm3 MPV 9.7 (7.4-10.4) fl Immature Gran % (Auto) 0.4 (0-0.5) % Neut % (Auto) 74.6 H (45.5-73.1) % Lymph % (Auto) 15.3 L (18.3-44.2) % [place] % (Auto) 7.5 (2.6-8.5) % Eos % (Auto) 1.8 (0-4.4) % Baso % (Auto) 0.4 (0.2-1.2) % Lymph # (Auto) 1.29 (0.9-3.2) K/mm3 [place] # (Auto) 0.6 (0.1-0.6) K/mm3 Eos # (Auto) 0.2 (0-0.3) K/mm3 Baso # (Auto) 0.0 (0.0-0.1) K/mm3 Abs Immat Gran (auto) 0.03 (0.00-0.031) K/mm3 Absolute Neuts (auto) 6.3 (1.3-6.7) K/mm3 Absolute Nucleated RBC 0.000 (0.0-0.012) K/mm3 Nucleated RBC % 0.0 (0.0-0.2) % PT 14.9 H (11.1-14.7) Seconds INR 1.2 APTT 34.0 (22.3-36.8) Seconds Sodium 139 (137-145) mmol/L Potassium 4.5 (3.4-5.0) mmol/L Chloride 104 (98-107) mmol/L Carbon Dioxide 25 (22-30) mmol/L Anion Gap 10 (4-12) mmol/L BUN 20 (9-20) mg/dL Creatinine 1.12 (0.7-1.3) mg/dL Estim Creat Clear Calc 66 ml/min Estimated GFR > 60 (59 - ) Glucose 171 H (65-110) mg/dL Lactic Acid 1.8 (0.7-2.0) mmol/L Calcium 9.7 (8.4-10.2) mg/dL Total Bilirubin 0.5 (0.2-1.3) mg/dL AST 22 (17-59) U/L ALT 15 (6-50) U/L Alkaline Phosphatase 106 (38-126) U/L Troponin I < 0.012 (0.000-0.034) ng/mL NT-Pro-B Natriuret Pep 510 H (19.9-100) pg/mL Total Protein 7.9 (6.3-8.2) g/dL Albumin 4.2 (3.5-5.1) g/dL Imaging Data Radiologist's impression: Impressions Chest X-Ray 08/17/25 11:15 Impression: Moderate right pleural effusion and minimal left pleural effusion. Mild pulmonary edema with right midlung scarring. Cervical Spine CT 05/10/25 12:15 Impression: No fracture or subluxation of the cervical spine. Degenerative changes, as above. Thoracic Spine CT 05/10/25 12:17 Impression: No acute fracture or subluxation. Extensive DISH. 6 mm right lower lobe pulmonary nodule. According to Fleischner Society criteria, for a low-risk patient, recommend follow CT scan in 6-12 months, then consider additional 18-[address] For a high-risk patient, follow-up CT scans at both 6-12 months and 18-24 months are recommended. ADDENDUM: 05/10/25 1225 The 6 mm right pulmonary nodule is actually in the upper lobe, and is stable as compared to prior CT from 2022. No further follow-up required. Head CT 05/10/25 12:20 Impression: No intracranial abnormality seen. Left maxillary sinus disease. Bilateral mastoid effusions. Chest CT 05/10/25 12:21 Impression: No acute rib fracture. Minimal left pleural effusion with bibasilar consolidation and/or scarring. 6 mm right upper lobe pulmonary nodule, stable since prior exam from 04/18/2023. Critical Care Time Critical Care Time Critical Care Time: No Discharge Plan Discharge Clinical Impression: Sinusitis, Bronchitis, Acute chest wall pain, Pulmonary nodule Patient Disposition: Home Condition: Improved Instructions: Antibiotic Form, Sinusitis (ED), Acute Bronchitis (ED), Pulmonary Nodules (ED), Chest Contusion (ED) Additional Instructions: Return if symptoms are worsening , call your family physician for appointment, take Tylenol as as needed for aches and pain, continue home medications. CT scan of the chest showed that she you have pulmonary nodule which she need further evaluation through your family physician. Please contact your family physician as soon as possible to rule out the possibility of pulmonary malignancy. Patient Language: Romanian Prescriptions: New tramadol 50 mg tablet 50 mg PO Q4H PRN (Reason: pain) Qty: 30 0RF doxycycline hyclate 100 mg capsule 100 mg PO BID Qty: 20 0RF No Action Breztri Aerosphere 160-9-4.8 mcg/actuation HFA aerosol inhaler 2 inh inhalation BID Qty: 10.7 0RF Linzess 290 mcg capsule 290 mcg PO QAM naloxone [Narcan] 4 mg/actuation spray,non-aerosol 4 mg intranasal Q3M PRN (Reason: opioid overdose) Qty: 2 0RF Rx Instructions: spray 1 dose into ONE nostril; alternate nostrils w each dose until help arrives Jardiance 10 mg tablet 10 mg PO DAILY bupropion HCl [Wellbutrin XL] 150 mg tablet extended release 24 hr 150 mg PO QAM Qty: 90 0RF diltiazem HCl 240 mg capsule,extended release 24hr See Rx Instructions .ROUTE .COMPLEX Qty: 90 2RF Dose Instruction: TAKE 1 CAPSULE BY MOUTH EVERY DAY Rx Instructions: TAKE 1 CAPSULE BY MOUTH EVERY DAY (DME) pen needle, diabetic [BD Ultra-Fine Short Pen Needle] 31 gauge x 5/16 needle See Rx Instructions .ROUTE .COMPLEX Qty: 100 4RF Dose Instruction: USE TO INJECT INSULIN 3 TIMES A DAY Rx Instructions: USE TO INJECT INSULIN 3 TIMES A DAY paroxetine HCl 20 mg tablet See Rx Instructions .ROUTE .COMPLEX Qty: 90 2RF Dose Instruction: TAKE 1 TABLET BY MOUTH EVERY DAY Rx Instructions: TAKE 1 TABLET BY MOUTH EVERY DAY metformin 500 mg tablet 500 mg PO BID Qty: 180 3RF finasteride 5 mg tablet See Rx Instructions .ROUTE .COMPLEX Qty: 100 1RF Dose Instruction: TAKE 1 TABLET BY MOUTH EVERY DAY Rx Instructions: TAKE 1 TABLET BY MOUTH EVERY DAY sotalol 80 mg tablet 80 mg PO BID Qty: 180 1RF Ozempic 1 mg/dose (4 mg/3 mL) pen injector See Rx Instructions .ROUTE .COMPLEX Qty: 3 2RF Dose Instruction: 1 MG (0.75 ML) SUBCUTANEOUSLY WEEKLY Rx Instructions: 1 MG (0.75 ML) SUBCUTANEOUSLY WEEKLY tamsulosin 0.4 mg capsule See Rx Instructions .ROUTE .COMPLEX Qty: 180 2RF Dose Instruction: TAKE 1 CAPSULE BY MOUTH TWICE A DAY Rx Instructions: TAKE 1 CAPSULE BY MOUTH TWICE A DAY insulin glargine [Lantus Solostar U-100 Insulin] 100 unit/mL (3 mL) insulin pen See Rx Instructions .ROUTE .COMPLEX Qty: 15 5RF Dose Instruction: INJECT 60 UNITS UNDER THE SKIN ONCE DAILY Rx Instructions: INJECT 60 UNITS UNDER THE SKIN ONCE DAILY oxycodone-acetaminophen 5-325 mg tablet 1 tablet PO Q6H PRN (Reason: pain) Qty: 120 0RF spironolactone 25 mg tablet See Rx Instructions .ROUTE .COMPLEX Qty: 90 1RF Dose Instruction: TAKE 1 TABLET BY MOUTH EVERY DAY Rx Instructions: TAKE 1 TABLET BY MOUTH EVERY DAY atorvastatin 20 mg tablet See Rx Instructions .ROUTE .COMPLEX Qty: 90 1RF Dose Instruction: TAKE 1 TABLET BY MOUTH EVERY DAY Rx Instructions: TAKE 1 TABLET BY MOUTH EVERY DAY Eliquis 5 mg tablet See Rx Instructions .ROUTE .COMPLEX Qty: 180 1RF Dose Instruction: TAKE 1 TABLET (5 MG) BY MOUTH EVERY 12 HOURS Rx Instructions: TAKE 1 TABLET (5 MG) BY MOUTH EVERY 12 HOURS omeprazole 40 mg capsule,delayed release(DR/EC) See Rx Instructions .ROUTE .COMPLEX Qty: 90 1RF Dose Instruction: TAKE 1 CAPSULE BY MOUTH EVERY DAY Rx Instructions: TAKE 1 CAPSULE BY MOUTH EVERY DAY Follow-up/Referrals: Zane Levine MD [Primary Care Provider] -
[2025-05-10 10:07] LABS: Alanine Aminotransferase 15 U/L (6-50); Albumin Level 4.2 g/dL (3.5-5.1); Alkaline Phosphatase 106 U/L (38-126); Anion Gap 10 mmol/L (4-12); Aspartate Amino Transferase 22 U/L (17-59); Bilirubin,Total 0.5 mg/dL (0.2-1.3); Blood Urea Nitrogen 20 mg/dL (9-20); Calcium 9.7 mg/dL (8.4-10.2); Carbon Dioxide 25 mmol/L (22-30); Chloride 104 mmol/L (98-107); Estimated CRCL calculation 66 ml/min; Estimated Glomerular Filt Rate > 60; Glucose 171 mg/dL (65-110); Potassium 4.5 mmol/L (3.4-5.0); Sodium 139 mmol/L (137-145); Total Protein 7.9 g/dL (6.3-8.2)
--- OUTSIDE RECORDS SUMMARY | 2025-05-10 10:09 | XMS_ITS | Encounter Summary ---
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
--- OUTSIDE RECORDS SUMMARY | 2025-05-10 10:09 | XMS_ITS | Encounter Summary ---
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 Gender Identity Male 09/22/2020 12:54 PM AIR CONDITIONING INSTALLER SUPERVISOR Sexual Orientation Not on file documented as of this encounter Plan of Treatment Not on file documented as of this encounter Procedures Procedure Name Priority Date/Time Associated Diagnosis Comments SCAN - NEUROLOGY 04/19/2023 SCAN - RADIOLOGY/IMAGING 04/18/2023 documented in this encounter Results * SCAN - NEUROLOGY (04/19/2023) Anatomical Region Laterality Modality Other Mariam Phillips ELECTROMECHANIC Final Result * SCAN - RADIOLOGY/IMAGING (04/18/2023) Anatomical Region Laterality Modality Other Provider Scanning Final Result documented in this encounter Visit Diagnoses Not on filedocumented in this encounter Care Teams Cupola Tapper Relationship Specialty Start Date End Date Roselyn Samson MD [address] [facility] [address] [place] [address] PCP - General Family Medicine 02/04/21 documented as of this encounter
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
--- OUTSIDE RECORDS SUMMARY | 2025-05-10 10:10 | XMS_ITS | Clinical Summary ---
Author Organization [facility] Address [address] [place] [address] Care Team Providers Care Senior Product Marketing Manager Name Role Phone Selvin Sen MD Primary [...] every morning. 04/22/2019 Active vitamin D2, ergocalciferol, 71873 UNITS capsule Take 1 capsule by mouth [...] 0.6 oz pur e alcohol) [employer] Sex and Gender Information Value Date Recorded [...] age to complete this topic Insurance MEDICARE [facility] MEDICARE Care Teams Senior Product Marketing Manager Relationship Specialty Start Date End Date Selvin Sen MD [address] [place] [address] PCP - General FAMILY PRACTICE 05/25/20
--- OUTSIDE RECORDS SUMMARY | 2025-05-10 10:10 | XMS_ITS | Continuity of Care Document ---
Author Organization [facility] Address [address] [place] [address] Phone Care Team Providers Care Antenna Engineer Name Role Phone Lali Hancock Unavailable Unavailable Advance Directives Directive Yes / No Effective Date File Name No Information Encounters Encounter Description Practice Location Reason(s) For Visit Diagnoses Date Provider Providers Copied on Encounter [facility], [address], [place], [place], [id number], [place] tel:[phone] SEC [facility] No Information Apr-0 5-200 3 Karissa Escalera. [address] [facility] , [address], [place], [address], [place]. tel:[phone] Family History Family Member Type Diagnosis Age At Onset No Information Payers Payer name Insurance type Covered green party ID Authoriza tion(s) [employer]I CI [id number] Social History Type Description Quantity Date Captured [...]
--- OUTSIDE RECORDS SUMMARY | 2025-05-10 10:10 | XMS_ITS | Clinical Summary ---
Author Organization [facility] Address [address] [place] [address] Care Team Providers Care Dog Groomer Name Role Phone Koko Paulson MD Primary Care Provider [phone] Amberly Jin MD Unavailable [phone] Source Comments [facility],non-owned Affiliates and Associated Physician Practices is amultiple site organization consisting of ambulatory clinics and hospital sitesin [place], [place], [place] and [place]. This disclosure is being madepursuant to the Care Everywhere program and may not contain all information available regarding this patient. 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 07/27/20 19 Ectropion due to laxity of left eyelid 9 Shortness of breath 12/24/2014 Atherosclerotic heart diseas e of [place] coronary artery without angina pectoris 12/17/2014 Paroxysmal atrial fibrillation 12/17/2014 Back pain 12/17/2014 Essential (primary) hypertension 12/17/2014 Cardiomyopathy 12/17/2014 Congestive heart failure 12/17/2014 Diabetes mellitus 12/17/2014 Epistaxis 12/17/2014 Fatty liver 12/17/2014 Hypercholesterolemia 12/17/2014 Gallstones 12/17/2014 Obesity 12/17/2014 Other pulmonary embolism without acute cor pulmo nale 12/17/2014 Sleep apnea 12/17/2014 Immunizations Immunization Administration Dates Next Due [employer] primary monovalent 12+ yr 0.3mL Pur ple [...] Comments Blood Pressure 119/62 11/25/2021 12:30 PM [facility] Pulse 59 11/25/2021 12:30 PM [facility] Temperature 36.6 C (97.9 F) 11/25/2021 10:57 AM [facility] Respiratory Rate 20 11/25/2021 12:3 0 PM [facility] Oxygen Saturation 94% 11/25/2021 12: 30 PM [facility] Inhaled Oxygen Concentration 40% 12/2021 10:30 AM [facility] Weight 145.3 kg (320 lb 6.4 oz) 11/25/2021 6:04 AM [facility] Height 175.3 cm (5' 9) 11/25/2021 6:04 AM [facility] Body Mass Index 47.31 11/25/2021 6:04 AM [facility] Plan of Treatment Health Maintenance Due Date [...] PANEL (CALCIUM TOTAL) STAT 11/25/2021 6:21 AM [facility] Type 2 diabetes mellitus with other specified complication, with long-term current use of insulin from Last 3 Months or Most Recently Relevant to Health Maintenance Results * (ABNORMAL) BASIC METABOLIC PANEL (CALCIUM TOTAL) (11/25/2021 6:21 AM [facility]) BUN 16 7 - 26 mg/dL 11/25/2021 6:50 AM [facility] Creatinine 0.99 0.71 - 1.16 mg/dL 11/25/2021 6:50 AM [facility] Sodium 142 136 - 145 mmol/L 11/25/2021 6:50 AM [facility] Potassium 4.0 3.5 - 4.5 mmol/L 11/25/2021 6:50 AM [facility] Chloride 105 98 - 107 mmol/L 11/25/2021 6:50 AM [facility] CO2 28 22 - 29 mmol/L 11/25/2021 6:50 AM [facility] Glucose 106 70 - 115 mg/dL 11/25/2021 6:50 AM [facility] Calcium 9.3 8.4 - 10.2 mg/dL 11/25/2021 6:50 AM [facility] Anion Gap 13 8 - 18 11/25/2021 6:50 AM [facility] BUN/Creatinine Ratio 16 7 - 23 11/25/2021 6:50 AM [facility] Osmolality Calculated 296 270 - 300 mOsm/kg 11/25/2021 6:50 AM [facility] eGFR by CKD-EPI 80(L) >=90 mL/min/1.7 3 m2 11/25/2021 6:50 AM [facility] Blood BLOOD SPECIMEN / Unknown Venipuncture / Unknown 11/25/2021 6:21 AM [facility] 11/25/2021 6:26 AM [facility] Roselyn Samson MD LAB - CHEMISTRY ORDERABL ES Final Result Performing Organization Address [facility]/State/ZIP Co de Phone Number [facility] [address] [place] [address], [facility] [phone] from Last 3 Months or Most Recently Relevant to Health Maintenance Insurance MEDICARE [facility] MEDICARE Care Teams Dog Groomer Relationship Specialty Start Date End Date Koko Paulson MD [address] [place] [id number] PCP - General 11/27/21 Amberly Jin MD [address] [place] [id number] Ophthalmology 01/16/22
--- OUTSIDE RECORDS SUMMARY | 2025-05-10 10:10 | XMS_ITS | Encounter Summary ---
Author Organization 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
--- OUTSIDE RECORDS SUMMARY | 2025-05-10 10:10 | XMS_ITS | Encounter Summary ---
Author Organization 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 Sexual Orientation Not on file documented as of this encounter Plan of Treatment Not on file documented as of this encounter Procedures Procedure Name Priority Date/Time Associated Diagnosis Comments SCAN - LABS 05/30/2024 documented in this encounter Results * SCAN - LABS (05/30/2024) us Provider Scanning Final Result documented in this encounter Visit Diagnoses Not on filedocumented in this encounter Care Teams Cane Stripper Relationship Specialty Start Date End Date Roselyn Samson MD [address] [facility] [address] [place] [address] PCP - General Family Medicine 02/04/21 documented as of this encounter
[2025-05-10 10:17] LABS: NT Pro B Type Natriuretic Pept 510 pg/mL (19.9-100); Troponin I < 0.012 ng/mL (0.000-0.034)
[2025-05-10] MEDS: ONDANSETRON INJ 4 MG/2 ML VIAL IV PUSH (10:22)
[2025-05-10] MEDS: MORPHINE SULFATE (*CRX) 4 MG/ML INJ IV PUSH (10:22)
[2025-05-10 10:47] VITALS: BP 120/47; PULSE 64; RESP 22; TEMP 36.6; O2SAT 97
[2025-05-10 11:28] VITALS: BP 121/50; PULSE 76; RESP 22; TEMP 36.6; O2SAT 97
[2025-05-10 12:28] VITALS: BP 124/53; PULSE 71; RESP 20; TEMP 36.5; O2SAT 98
== END 2025-05-10 13:10 | disposition home or self-care (01) ==
PROVIDERS: Emergency Provider Emergency Medicine; PCP Family Medicine
DX: J32.9 Chronic sinusitis, unspecified (principal); J40 Bronchitis, not specified as acute or chronic; R07.89 Other chest pain; R91.1 Solitary pulmonary nodule; W05.0XXA Fall from non-moving wheelchair, initial encounter; J44.9 Chronic obstructive pulmonary disease, unspecified; Z99.81 Dependence on supplemental oxygen; E11.9 Type 2 diabetes mellitus without complications; Z79.01 Long term (current) use of anticoagulants; I10 Essential (primary) hypertension; G47.33 Obstructive sleep apnea (adult) (pediatric); J96.11 Chronic respiratory failure with hypoxia; I48.0 Paroxysmal atrial fibrillation; Z79.4 Long term (current) use of insulin
CPT/HCPCS: 36415; 70450; 71045; 71250; 72125; 72128; 80053; 83605; 83880; 84484; 85025; 85610; 85730; 93005; 96374; 96375; 99284; J2270; J2405